=== PATIENT | male | born 1960 | race Caucasian/White ===

== ENCOUNTER 2020-09-10 08:08 | Day surgery (SDC) | payer SELFPAY ==
--- OUTSIDE RECORDS SUMMARY | 2020-09-10 08:25 | XMS REPORT | Clinical Summary ---
:1960 Author Organization [facility] Address [address] [place] [id number] Care Team Providers Name Role Phone Asked, No Pcp Primary Care Provider Unavailable Allergies Active Allergy Reactions Severity Noted Date Comments Bupropion Hcl 06/25/2017 Medications Medication Sig Dispensed Refills Start Date End Date Status vitamin E 1000 UNIT Take 1,000 Units 0 Active capsule by mouth 2 (two) times a day. PREGABALIN (LYRICA Take by mouth 0 Active ORAL) daily. INGREZZA 80 mg Take 1 capsule by 30 capsule 1 12/05/2017 Active capsule mouth once daily as directed by physician. Hospital, Clinic, or Other Ordered Dose Route Frequency Start Date End Date Status Facility Administered Medication abobotulinumtoxinA (DYSPORT) 500 Units IM once 11/27/2017 Active injection 500 UnitsIndications: Isolated oromandibular dystonia Active Problems Not on file Medical History Medical History Date Comments Skin cancer Family History Medical History Relation Name Comments Lung cancer Father Heart disease Mother Hypertension Mother Relation Name Status Comments Father Mother Social History Tobacco Use Types Packs/Day Years Used Date Current Every Day Smoker Smokeless Tobacco: Current User Chew Alcohol Use Drinks/Week oz/Week Comments Yes occassionally Sex Assigned at Date Recorded Not on file Last Filed Vital Signs Not on file Plan of Treatment Health Maintenance Due Date Last Done Comments COLONOSCOPY SCREENING 2011 SHINGLES VACCINES (#1) 2011 INFLUENZA VACCINE 06/19/2020 Results Not on fileafter 09/10/2019 Advance Directives For more information, please contact: [phone] Type Date Recorded Patient Sap Director Explanati on Advance Directives, Living Will and Medical Power of 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
--- OUTSIDE RECORDS SUMMARY | 2020-09-10 08:28 | XMS REPORT | Continuity of Care Document ---
:1960 Author Organization [facility] Care Team Providers Name Role Phone [facility] Unavailable Un available Problems Problem Status Onset Classification Date Comments Sour e Date Reported Pathological 12/03/19 06/17/2019 Christos as fracture, other 19 [facility] [place] site, initial Center encounter for fracture Encounter for 10/31/20 [place]13[place]2019 [place] removal of Medical internal fixation Ce nter device OTHER CHRONIC Active 09/30/20 Christos as OSTEOMYELITIS, 18 Medic al OTHER SITE Center FOLLOW VISIT Active 09/13/20 [facility] Other acute 07/13/20 01/22/2019 [facility] osteomyelitis, 18 Medic al other site Center FOLLOW UP Active 01/22/[address] OSTEOMYEKITIS Active 01/10/20 Christos as [address] [place] [address] Center SDF Active 01/10/[address] TOOTH ABSCESS Active 12/25/[address] LEFT FACIAL MASS Active 09/26/20 [facility] SWELLING [address] [place] [address] F/U Active 08/31/[address] DENTAL ABSCESS Active 08/22/[address] LT SUBLINGUAL Active 08/22/20 Christos as ABSCESS [address] [place] [address] 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, [facility] s neoplasm of skin all lesions M edical (disorder) [facility] Res[facility] Problem 06/17/2019 when pt was [facility] spotted fever 10 Medica l (disorder) Center,[facility] 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[facility] dyskinesia Medical (disorder) Center,[facility] Other specified 06/17/2019 [facility] postprocedural Medic al states Center Inflammatory 12/19/2018 [facility] as conditions of Medica l jaws Center Personal history 12/19/2018 [facility] of nicotine Medical dependence Center Fracture of ramus 01/22/2019 [facility] of left mandible, Mi dical subsequent Center encounter for fracture with nonunion Nicotine 06/17/2019 [facility] dependence, Medical cigarettes, Center uncomplicated Osteomyelitis, 06/17/2019 [facility] [place] unspecified Medical Center Pathological 04/26/2018 Christos as fracture in other Mi dical disease, other Cente r site, initial encounter for fracture Moderate 04/26/2018 [facility] protein-calorie Medi bang malnutrition Center Cellulitis and 04/26/2018 [facility] [place] abscess of mouth [facility] Center Body mass index 04/26/2018 [facility] (BMI) 19 or less, Mi dical adult Center Retained dental 04/26/2018 [facility] root Medical [place] Cocaine abuse, 04/26/2018 [facility] [place] uncomplicated Medica l Center 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/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 [facility] (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 Medic al therapy Center CELLULITIS AND Active [facility] [place] ABSCESS OF MOUTH [facility] OSTEOMYELITIS OF Active [facility] UNSPECIFIED ORBIT Mi dical Center ILLNESS, Active [facility] Medications Medication Details Route Status Patient Ordering Order Source Instructions Provider Date midazolam (ANES) Route: IV, Inactive [facility] Drug form: 2018 Medical SOLN, ONCE, Center Stop date: 10/23/18 14:00:00 DRY WALL FINISHER chlorhexidine 0.018 gm = 15 Active 10/23[facility] [place] gluconate 1.2 MG/ML mL, PO, BID, 2017 Medical Mouthwash [Peridex] swish and Ce nter spit; do not swallow, # 480 mL, 0 Refill(s) tramadol 50 mg = 1 tab, No Longer Christos as hydrochloride 50 MG PO, Q4H, # 24 Active 2017 Medical Oral Tablet tab, 0 Center Refill(s) ibuprofen 800 mg 800 mg = 1 No Longer [place] oral tablet tab, PO, Q8H, Active 2018 Medica l PRN Pain, Take Center with food, # 30 tab, 0 Refill(s) Acetaminophen 500 500 mg = 1 No Longer 10/23/ H [place] MG Oral Tablet tab, PO, Q4H, Active 2018 Med ical [Tylenol] PRN Pain, X 10 Center day, # 60 tab, 0 Refill(s) Naloxone Notes: Same as No Longer Christos as Narcan Active [address] [place] [address] Flumazenil Notes: (Same No Longer Christos as as: Romazicon) Active 2018 Medical Center Acetaminophen Notes: Max [place] acetaminophen Active 2018 Medical 4000 mg/day (4 Center gm/day). (Same as: Tylenol Extra Strength) Ketorolac 4 days No Longer Christos as MEDICATION Active 2018 Medical WASTE Center Product Size: 30 mg Product Wasted: _0__ mg Fentanyl Notes: (Same No Longer [facility] as: Sublimaze) Active 2018 Medical Preservative Center free. Hydromorphone Notes: Same as No Longer [facility] Dilaudid Active 2018 Medical Center Oxycodone Notes: (Same [place] Longer [place] as: Active 2018 [facility] [place] 'Roxicodone) Center Dexamethasone Notes: No Longer [place] Concentration: Active 2018 Medical 4mg/ml Center Ondansetron Notes: (Same [place] Long[place] as: Zofran) Active 2018 Medical MEDICATION Center WASTE Product Size: 4 mg Product Wasted: __0_ mg Calcium Chloride 1,000 mL, No Longer [facility] 0.0014 MEQ/ML / Rate: 125 Active 2018 Medica l Potassium Chloride ml/hr, Infuse Center 0.004 MEQ/ML / over: 8 hr, Sodium Chloride Route: IV, 0.103 MEQ/ML / Dosing Weight Sodium Lactate 68.182 kg, 0.028 MEQ/ML Total Volume: Injectable Solution 1,000, Start date: 10/23/18 13:49:00 DRY WALL FINISHER, Duration: 30 day, Stop date: 11/22/18 13:48:00 DRY WALL FINISHER, 1.87, m2 hydromorphone Route: IV, Inactive Christos as (ANES) Drug form: 2018 Medical INJ, ONCE, Center Stop date: 10/23/18 13:45:00 DRY WALL FINISHER dexamethasone Route: IV, Inactive Christ[place] as (ANES) Drug form: 2018 Medical INJ, ONCE, Center Stop date: 10/23/18 13:45:00 DRY WALL FINISHER ondansetron (ANES) Route: IV, Inactive [facility] [place] Drug form: 2018 Medical INJ, ONCE, Center Stop date: 10/23/18 13:45:00 DRY WALL FINISHER phenylephrine Route: IV, Inactive [place]os as (ANES) Drug form: 2018 Medical INJ, ONCE, Center Stop date: 10/23/18 13:20:00 DRY WALL FINISHER Isolyte S PH 7.4 Route: IV, Inactive [place] (ANES) 500 mL Total Volume: 2017 Medi bang 500, Start Center date: 10/23/18 13:16:00 DRY WALL FINISHER, Stop date: 10/23/18 14:16:00 DRY WALL FINISHER acetaminophen Route: IV, Inactive Christos as (ANES) 10 mg Drug form: 2018 Medical INJ, Start Center date: 10/23/18 13:10:00 DRY WALL FINISHER, Stop date: 10/23/18 14:10:00 DRY WALL FINISHER ePHEDrine (ANES) Route: IV, Inactive [place] Drug form: 2018 Medical INJ, ONCE, Center Stop date: 10/23/18 13:05:00 DRY WALL FINISHER ceFAZolin (ANES) Route: IV, Inactive [place] Drug form: 2018 Medical INJ, ONCE, Center Stop date: 10/23/18 12:55:00 DRY WALL FINISHER fentaNYL (ANES) Route: IV, Inactive [place] Drug form: 2018 Medical INJ, ONCE, Center Stop date: 10/23/18 12:46:00 DRY WALL FINISHER succinylcholine Route: IV, Inactive [place] (ANES) Drug form: 2018 Medical INJ, ONCE, Center Stop date: 10/23/18 12:46:00 DRY WALL FINISHER propofol (ANES) Route: IV, Inactive 10/23[facility] [place] Drug form: 2018 Medical INJ, ONCE, Center Stop date: 10/23/18 12:46:00 DRY WALL FINISHER lidocaine (ANES) Route: IV, Inactive 10/23[facility] [place] Drug form: 2018 Medical INJ, ONCE, Center Stop date: 10/23/18 12:45:00 DRY WALL FINISHER Lactated Ringers Route: IV, Inactive 10/23[facility] [place] Injection IV (ANES) Total Volume: 2017 Medical 1000 mL 1,000, Start Center date: 10/23/18 12:02:00 DRY WALL FINISHER, Stop date: 10/23/18 13:02:00 DRY WALL FINISHER ceFAZolin + sterile Notes: (Same No Longer 10/23 [place] water 20 mL As: Ancef, Active 2018 Medical Kefzol) Center MEDICATION WASTE Product Size: 1000 mg Product Wasted: ___ mg Metronidazole 500 500 mg = 1 Active [place] MG Oral Tablet tab, PO, TID, 2018 Med ical [Flagyl] 0 Refill(s) [place] Amoxicillin PO, BID, 0 Active [place] Refill(s) 2018 [facility] Amoxicillin 875 MG See No Longer [facility] / Clavulanate 125 Instructions, Active 2018 Medical MG Oral Tablet 1 tab PO Q[address]H [address] [Augmentin 875-mg] one month, # 60 tab, 0 Refill(s), Pharmacy: [facility] [id number] ibuprofen 600 mg 600 mg = 1 No Longer [facility] oral tablet tab, PO, Q6H, Active 2018 Medica l PRN Pain or Center Fever, Take with food, X 10 day, # 40 tab, 0 Refill(s), Pharmacy: [facility] [id number] chlorhexidine 0.018 gm = 15 Active [place] gluconate 1.2 MG/ML mL, PO, BID, 2018 Medical Mouthwash [Peridex] swish and Ce nter spit; do not swallow, # 480 mL, 0 Refill(s), Pharmacy: [facility] [id number] Benadryl Notes: (Same Inactive [facility] as: Benadryl) [address] [place] [address] Amoxicillin 875 MG Notes: With No Longer [place] / Clavulanate 125 food. (Same Active 2017 Me dical MG Oral Tablet as: Augmentin Mimi ter [Augmentin 875-mg] 875) Alprazolam 0.5 MG Notes: With Inactive 01/17/ H [place] Oral Tablet [Xanax] food or milk 2018 Medical (Same as: Center Xanax) Triazolam 0.25 mg, Inactive [facility] Route: PO, 2018 Medical Drug form: Center TAB, ONCE, Dosing Weight 68.182, kg, PRN Agitation, Start date: 01/17/18 9:26:00 DRY WALL FINISHER Benadryl Notes: (Same Inactive [facility] as: Benadryl) [address] [place] [address] 12 HR Clonidine Notes: (Same No Longer H [place] Hydrochloride 0.1 As: Catapres) Active 2018 Medical MG Extended Release Cent er Tablet Ativan Notes: (Same Inactive [facility] as: Ativan) 2018 Medical Center Flagyl Notes: (Same No Longer [facility] as: Flagyl) Active 2018 Medical Avoid alcohol. Center Rocephin Notes: (Same No Longer [facility] As: Rocephin). Active 2018 Medical Use with 100 Center mL NS and infuse over 30 min MEDICATION WASTE Product Size: 2000 mg Product Wasted: ___ mg Vancomycin 2001 mg: No Longer [place] infuse over Active 2018 Medical 2.5 hours For Center adult patients only: Round to nearest 250 mg per Medical Staff approval MEDICATION WASTE Product Size: 1000 mg Product Wasted: ___ mg Ativan Notes: (Same Inactive [facility] as: Ativan) 2018 [facility] [place] Center Ativan Notes: (Same No Longer [facility] as: Ativan) Active 2018 Medical Center Lidocaine 25 MG/ML Notes: Apply Inactive [place] / Prilocaine 25 to desired 2018 Medic al MG/ML Topical Cream area 2 hrs C enter [EMLA] prior to needle insertion. (Same as: Emla) Pain Ease topical 1 spray, Inactive [place] spray Route: TOP, 2018 Medical Dosing Weight Center 68.182, kg, ONCE, Start date: 01/13/18 5:59:00 DRY WALL FINISHER, Stop date: 01/13/18 5:59:00 DRY WALL FINISHER Amicar 4 gm, Route: Inactive [place] S&SPIT, Q8H, 2018 Medical Dosing Weight Center 68.182, kg, Start date: 01/12/18 16:00:00 DRY WALL FINISHER, Duration: 30 day, Stop date: 02/11/18 8:00:00 CDT Tranexamic acid Tranexamic No Longer [place] 50mg /ml oral acid 50mg /ml Active 2017 Medi bang solution oral solution, Center 10 mL, Drug form: MISC, Route: S&SPIT, Q8H, 01/12/18 12:00:00 DRY WALL FINISHER, Stop date: 02/11/18 4:00:00 CDT Unasyn Notes: Dosing No Longer [place] based on Active 2018 Medical Ampicillin Center component (Same as: Unasyn) Nicotine Notes: (Same No Longer [place] as: Habitrol) Active 2018 Medical "Remove old Center patch before application of new patch" WASTE: F/P - P Waste Black; E - P Waste Black chlorhexidine Notes: (Same No Longer [place] gluconate 1.2 MG/ML As: Peridex) Active 2017 Medical Mouthwash [Peridex] Cent er Beneprotein 7 gm Notes: (Same No Longer [place] pkt as: Active 2018 Medical Beneprotein) Center Ibuprofen Notes: (Same [place] Long[place] as: Motrin) Active 2018 Medical "Do Not Crush" Center Take with food. Lovenox Notes: (Same No Longer [place] as: Lovenox) Active 2018 Medical Center Unasyn Notes: Dosing Inactive [place] based on 2018 Medical Ampicillin Center component (Same as: Unasyn) Ondansetron Notes: (Same [place] Long[place] as: Zofran) Active 2018 Medical MEDICATION Center WASTE Product Size: 4 mg Product Wasted: ___ mg Benadryl Notes: (Same No Longer [facility] as: Benadryl) Active 2018 Medical Center clonazePAM 0.5 mg 0.5 mg = 1 Active [facility] oral tablet tab, PO, TID, 2017 Medica l # 90 tab, 0 Center Refill(s) tizanidine 6 mg 6 mg = 1 cap, Active [place] oral capsule PO, TID, 0 2018 Medical Refill(s) Center pregabalin 50 MG 100 mg = 2 Active [facility] [place] Oral Capsule cap, PO, 2018 Medical [Lyrica] Daily, 0 Center Refill(s) Tylenol Notes: Max No Longer [place] acetaminophen Active 2018 Medical 4000 mg/day (4 Center gm/day). (Same as: Tylenol Extra Strength) Morphine Notes: (Same No Longer [facility] as:MORPhine Active 2017 Medical Sulfate) Center albuterol (ANES) Route: Inactive Christos as INHALATION, 2018 Medical Drug form: Center AERO/A, ONCE, Stop date: 01/11/18 10:29:00 DRY WALL FINISHER ondansetron (ANES) Route: IV, Inactive [facility] Drug form: 2017 Medical INJ, ONCE, Center Stop date: 01/11/18 10:21:00 DRY WALL FINISHER acetaminophen Route: IV, Inactive Christos as (ANES) 10 mg Drug form: 2017 Medical INJ, Start Center date: 01/11/18 9:38:00 DRY WALL FINISHER, Stop date: 01/11/18 10:38:00 DRY WALL FINISHER ceFAZolin (ANES) Route: IV, Inactive [facility] Drug form: 2017 Medical INJ, ONCE, Center Stop date: 01/11/18 9:21:00 DRY WALL FINISHER Flumazenil Notes: (Same [place] as: Romazicon) 2018 Medical Center Morphine Notes: (Same Inactive [facility] as:MORPhine 2018 Medical Sulfate) Center Oxycodone Notes: (Same Inactive 01/11[facility] as: 2018 [facility] [place] Roxicodone) Center Ondansetron Notes: (Same Inactive Christos as as: Zofran) 2018 Medical MEDICATION Center WASTE Product Size: 4 mg Product Wasted: ___ mg Naloxone Notes: (Same Inactive [facility] as: Narcan) 2018 [facility] [place] dexmedetomidine Route: IV, Inactive [place] (ANES) Drug form: 2017 Medical INJ, ONCE, Center Stop date: 01/11/18 9:07:00 DRY WALL FINISHER dexamethasone Route: IV, Inactive 01/11[facility] Christos as (ANES) Drug form: 2017 Medical INJ, ONCE, Center Stop date: 01/11/18 8:51:00 DRY WALL FINISHER famotidine (ANES) Route: IV, Inactive 01/11[facility] [place] Drug form: 2018 Medical INJ, ONCE, Center Stop date: 01/11/18 8:45:00 DRY WALL FINISHER hydromorphone Route: IV, Inactive 01/11[facility] Christos as (ANES) Drug form: 2017 Medical INJ, ONCE, Center Stop date: 01/11/18 8:40:00 DRY WALL FINISHER rocuronium (ANES) Route: IV, Inactive 01/11[facility] [place] Drug form: 2017 Medical INJ, ONCE, Center Stop date: 01/11/18 8:40:00 DRY WALL FINISHER fentaNYL (ANES) Route: IV, Inactive [place] Drug form: 2018 Medical INJ, ONCE, Center Stop date: 01/11/18 8:40:00 DRY WALL FINISHER midazolam (ANES) Route: IV, Inactive [facility] Drug form: 2018 Medical SOLN, ONCE, Center Stop date: 01/11/18 8:40:00 DRY WALL FINISHER lidocaine (ANES) Route: IV, Inactive [facility] Drug form: 2018 Medical INJ, ONCE, Center Stop date: 01/11/18 8:40:00 DRY WALL FINISHER propofol (ANES) Route: IV, Inactive [place] Drug form: 2018 Medical INJ, ONCE, Center Stop date: 01/11/18 8:40:00 DRY WALL FINISHER Lactated Ringers Route: IV, Inactive [facility] Injection IV (ANES) Total Volume: 2017 Medical 1000 mL 1,000, Start Center date: 01/11/18 7:32:00 DRY WALL FINISHER, Stop date: 01/11/18 8:32:00 DRY WALL FINISHER Diphenhydramine Notes: (Same No Longer [facility] as: Benadryl) Active 2018 Medical [place] Tylenol Notes: Infuse No Longer [facility] over [address] [place] [address] Do Center not exceed 4gm/day of acetaminophen MEDICATION WASTE Product Size: 1000 mg Product Wasted: ___ mg Lyrica Notes: Same as [place] Longer [place] Lyrica Active 2018 [facility] Amoxicillin 875 MG 875 mg = 1 Active [facility] / Clavulanate 125 tab, PO, Q12H, 2017 Medical MG Oral Tablet X 7 day, # [address] [Augmentin 875-mg] tab, 0 Refill(s), Pharmacy: [facility] [id number] Motrin 600 mg oral 600 mg = 1 Active [place] tablet tab, PO, Q6H, 2017 Medical PRN Pain, take Center with food, # 30 tab, 0 Refill(s), Pharmacy: [facility] [id number] tramadol 50 mg = 1 tab, Active [place] hydrochloride 50 MG PO, Q4H, PRN 2017 Medical Oral Tablet Pain, X 10 Center day, # 30 tab, 0 Refill(s) Acetaminophen 500 1,000 mg = 2 Active [place] MG Oral Tablet tab, PO, BID, 2017 Med ical [Tylenol] PRN Pain, X 10 Center day, # 50 tab, 0 Refill(s), Pharmacy: [facility] [id number] chlorhexidine 0.018 gm = 15 Active [place] gluconate 1.2 MG/ML mL, PO, BID, 2017 Medical Mouthwash [Peridex] swish and Ce nter spit; do not swallow, # 480 mL, 0 Refill(s), Pharmacy: [facility] [id number] neostigmine (ANES) Route: IV, Inactive [place] Drug form: 2016 Medical INJ, ONCE, Center Stop date: 10/03/17 9:18:00 DRY WALL FINISHER glycopyrrolate Route: IV, Inactive [place] (ANES) Drug form: 2016 Medical INJ, ONCE, Center Stop date: 10/03/17 9:18:00 DRY WALL FINISHER dexmedetomidine Route: IV, Inactive [place] (ANES) Drug form: 2016 Medical INJ, ONCE, Center Stop date: 10/03/17 9:06:00 DRY WALL FINISHER ondansetron (ANES) Route: IV, Inactive [facility] Drug form: 2016 Medical INJ, ONCE, Center Stop date: 10/03/17 9:06:00 DRY WALL FINISHER ceFAZolin (ANES) Route: IV, Inactive [facility] Drug form: 2016 Medical INJ, ONCE, Center Stop date: 10/03/17 9:04:00 DRY WALL FINISHER rocuronium (ANES) Route: IV, Inactive [facility] Drug form: 2016 Medical INJ, ONCE, Center Stop date: 10/03/17 8:29:00 DRY WALL FINISHER propofol (ANES) Route: IV, Inactive [place] Drug form: 2016 Medical INJ, ONCE, Center Stop date: 10/03/17 8:29:00 DRY WALL FINISHER dexamethasone Route: IV, Inactive Christos as (ANES) Drug form: 2016 Medical INJ, ONCE, Center Stop date: 10/03/17 8:29:00 DRY WALL FINISHER fentaNYL (ANES) Route: IV, Inactive [place] Drug form: 2016 Medical INJ, ONCE, Center Stop date: 10/03/17 8:29:00 DRY WALL FINISHER midazolam (ANES) Route: IV, Inactive [facility] Drug form: 2016 Medical SOLN, ONCE, Center Stop date: 10/03/17 8:29:00 DRY WALL FINISHER lidocaine (ANES) Route: IV, Inactive [facility] Drug form: 2017 Medical INJ, ONCE, Center Stop date: 10/03/17 8:29:00 DRY WALL FINISHER acetaminophen Route: IV, Inactive Christos as (ANES) 10 mg Drug form: 2016 Medical INJ, Start Center date: 10/03/17 8:25:00 DRY WALL FINISHER, Stop date: 10/03/17 9:25:00 DRY WALL FINISHER Lactated Ringers Route: IV, Inactive [facility] Injection IV (ANES) Total Volume: 2016 Medical 1000 mL 1,000, Start Center date: 10/03/17 7:34:00 DRY WALL FINISHER, Stop date: 10/03/17 8:34:00 DRY WALL FINISHER gabapentin 300 MG 300 mg = 1 Active [place] Oral Capsule cap, PO, Q8H, 2017 Medic al # 30 cap, 0 Center Refill(s), called to pharmacy ibuprofen 800 mg 800 mg = 1 [place] oral tablet tab, PO, Q8H, 2017 Medica l PRN Fever or Center Pain, Take with food, X 10 day, # 30 tab, 0 Refill(s), called to pharmacy chlorhexidine 0.018 gm = 15 [place] gluconate 1.2 MG/ML mL, Swab 2017 Med ical Mouthwash Mouth, Q12H, # Center 420 mL, 0 Refill(s), called to pharmacy Amoxicillin 875 MG 1 tab, PO, Active [place] / Clavulanate 125 Q12H, X 10 2017 Med ical MG Oral Tablet day, # 20 tab, Ce nter [Augmentin 875-mg] 0 Refill(s), called to pharmacy tramadol 100 mg = 2 Active [place] hydrochloride 50 MG tab, PO, Q6H, 2017 Medical Oral Tablet PRN Pain Score Cente r 7-10, X 7 day, # 50 tab, 0 Refill(s), given to patient Folic Acid 1 MG 1 mg = 1 tab, Active [place] Oral Tablet NG, Daily, # 2017 Medical 14 tab, 0 Center Refill(s), called to pharmacy acetaminophen 500 1,000 mg = 2 Active H [place] mg oral tablet tab, PO, Q6H, 2017 Med ical X 10 day, # 80 Center tab, 0 Refill(s), called to pharmacy thiamine 100 mg 200 mg = 2 [place] oral tablet tab, NG, 2017 Medical Daily, X 14 Center day, # 28 tab, 0 Refill(s), called to pharmacy Clonidine 0.1 mg = 1 Active [place] Hydrochloride 0.1 tab, PO, QID, 2017 Medical MG Oral Tablet # 56 tab, 0 Cente r Refill(s), called to pharmacy Clonidine Notes: (Same Inactive [place] Hydrochloride 0.1 As: Catapres) 2017 Medical MG Oral Tablet Center Amoxicillin 875 MG Notes: With No Longer [facility] / Clavulanate 125 food. (Same Active 2016 Me dical MG Oral Tablet as: Augmentin Mimi ter [Augmentin 875-mg] 875) olanzapine Notes: (Same No Longer Christos as as: ZyPREXA) Active 2017 [facility] Seroquel Notes: (Same Inactive [place] as: SEROquel) 2017 [facility] Naprosyn Notes: (Same No Longer [facility] as: Naprosyn) Active 2017 Medical Take with Center food. gabapentin 300 MG Notes: (Same No Longer [facility] Oral Capsule as: Neurontin) Active 2016 [facility] Tetrahydrocannabino Notes: (Same No Longer 08/25 [facility] l as: Marinol) Active 2017 [facility] [place] Non-Formulary Center Drug. Dexmedetomidine 24 hours No Longer [place] Active 2017 [facility] Thiamine 200 mg, Route: No Longer Christos as IV, Daily, Active 2017 Medical Dosing Weight Center 67.273, kg, Start date: 08/24/17 9:00:00 CDT, Duration: 30 day, Stop date: 09/22/17 9:00:00 CDT Famotidine 20 MG Notes: (Same No Longer [place] Oral Tablet as: Pepcid) Active 2017 [facility] Vitamin B 12 Notes: (Same No Longer [place] As: Vitamin Active 2016 [facility] B12) [place] sterile water 1.2 mL, Route: No Longer H [place] MISC, Drug Active 2016 Medical Form: INJ, Center Q2H, PRN See Nurse's Notes, Start date: 08/24/17 8:24:00 CDT, Duration: 30 day, Stop date: 09/23/17 8:23:00 DRY WALL FINISHER pregabalin Notes: (Same No Longer [place] as as: Lyrica) Active 2017 [facility] Geodon Notes: No Longer [facility] Reconstitute Active 2017 [facility] [place] with 1.2 ml of [place] sterile water. Final concentration = 20 mg/1ml. Maximum 40 mg/24 hours (Same As: Sonja). MEDICATION WASTE Product Size: 20 mg Product Wasted: ___ mg Acetaminophen Notes: Max [place] Longer [place] acetaminophen Active 2017 [facility] 4000 mg/day (4 Center gm/day). (Same as: Tylenol Extra Strength) Baclofen Notes: (Same No Longer [place] As: Lioresal) Active 2017 [facility] Docusate 100 mg, Route: Inactive [place] PO, Drug form: 2016 [facility] CAP, Q12H, Center Dosing Weight 67.273, kg, Start date: 08/23/17 21:00:00 CDT, Duration: 30 day, Stop date: 09/22/17 9:00:00 CDT Mirtazapine Notes: (Same [place] Longer [place] as:Remeron) Active 2017 [facility] olanzapine 10 mg, Route: Inactive Christos as SL, Drug form: 2016 [facility] TABDIS, Center Bedtime, Dosing Weight 67.273, kg, Start date: 08/23/17 21:00:00 CDT, Duration: 30 day, Stop date: 09/21/17 21:00:00 CDT docusate Notes: (Same No Longer [place] as: Colace) Active 2017 [facility] Reglan Notes: (Same No Longer [facility] as: Reglan) Active 2017 [facility] Geodon Notes: No Longer [facility] Reconstitute Active [address] [place] [address] with 1.2 ml of Center sterile water. Final concentration = 20 mg/1ml. Maximum 40 mg/24 hours (Same As: Sonja). MEDICATION WASTE Product Size: 20 mg Product Wasted: ___ mg pregabalin Notes: Same as No Longer [place] Lyrica Active 2017 [facility] Enoxaparin Notes: (Same No Longer Christos as as: Lovenox) Active [address] [place] [address] PHOS-NaK Notes: (Same No Longer [facility] as: Phos-NaK) Active [address] [place] [address] Each 1.5 gm Center pkt has 250mg phosphorous. Mix w/2.5oz water and stir. mirtazapine 15 mg 0 Refill(s) No Longer [facility] oral tablet Active [address] [place] [address] pregabalin 50 MG 50 mg = 1 cap, No Longer [facility] Oral Capsule PO, TID, [address] [place] [address] [Lyrica] Refill(s) Center baclofen 20 mg oral 0 Refill(s) No Longer [facility] tablet Active [address] [place] [address] OLANZapine 10 mg 0 Refill(s) No Longer [place] oral tablet, Active [address] [place] [address] disintegrating Center midazolam 50mg/ NS Notes: (Same Inactive [facility] 50ml drip as: Versed) 2017 Medical (premixed) 50 mg [place] midazolam 50mg/ NS Notes: (Same Inactive [facility] 50ml drip as: Versed) [facility] Medical (premixed) 50 mg Center Versed 3 mg, Route: Inactive [facility] DARION JONES, 2017 Medical Dosing Weight Center 67.273, kg, Start date: 08/23/17 15:00:00 CDT, Duration: 30 day, Stop date: 09/22/17 14:59:00 CDT Midazolam 100 mg, 100 Inactive [facility] mL, Rate: 2017 Medical Titrate, Start Center Dose: 1 mg/hr, Titration: Rebolus 1 mg IV and/or Titrate infusion by 1 mg/hour every 30 minutes, Goal(s): RASS 0, Max Dose: 10 mg/hr, Route: IV, Dosing Weight 67.273 kg, Total Volume: 100, Start date: 08/23/17 13:5... Tramadol Notes: [place] to [place]er [place] exceed Active 2017 Medical 400mg/day. Center (Same As: [facility]) ocular lubricant Notes: (Same No Longer [place] as: Active 2017 Medical Lacri-Lube, Center Duratears Naturale, Artificial Tears, and Tears Again ) senna 8.6 mg oral Notes: (Same No Longer [place] tablet as: Senokot) Active 2017 [facility] Center Miralax Notes: No Longer Dissolve in 8 Active 2017 Medical oz of water or Center juice. (Same as: Miralax) Thiamine Notes: (Same No Longer [place] As: Vitamin Active 2016 [facility] B1) [place] Folic Acid Notes: (Same No Longer [place] as as: Folvite) Active 2017 [facility] Center Valium Notes: (Same Inactive [place] as: Valium) 2017 Medical [place] Clonidine Notes: (Same No Longer [place] As: Catapres) Active 2017 [facility] Tetrahydrocannabino 5 mg, Route: Inactive [place] l NG, Drug form: 2017 Medical CAP, [id number], Center Dosing Weight 67.273, kg, Start date: 08/23/17 9:19:00 CDT, Duration: 30 day, Stop date: 09/21/17 21:19:00 CDT Methadone Notes: (Same No Longer [place] as: Dolophine) Active 2017 [facility] Midazolam 2 mg, Route: Inactive [place] IVP, ONCE, 2017 Medical Dosing Weight Center 67.273, kg, Start date: 08/23/17 9:16:00 CDT, Stop date: 08/23/17 9:16:00 CDT Famotidine Notes: (Same No Longer [place] as as: Pepcid) Active 2017 [facility] chlorhexidine Notes: (Same No Longer [place] gluconate 1.2 MG/ML As: Peridex) Active 2017 Medical Mouthwash Center chlorhexidine Notes: (Same No Longer [place] gluconate 1.2 MG/ML As: Peridex) Active 2017 Medical Mouthwash Center Dextrose 50% 12.5 gm, 25 [place]er [place] Syringe mL, Route: Active 2016 Medical IVP, Drug Center Form: INJ, Dosing Weight 67.273, kg, PRN, PRN Abnormal Lab Result, Start date: 08/23/17 2:39:00 CDT, Duration: 30 day, Stop date: 09/22/17 2:38:00 CDT, For FSBG 40 mg/dL - 60 mg/dL Insulin regular 60 units) No Longer [place] WASTE: F/P - Active 2017 Medical Black; E - Center Municipal Trash Bin Stable for 28 days at room temperature Expires in days from Date Oxycodone Notes: (Same No Longer [place] Hydrochloride 5 MG as: Active 2016 Medic al Oral Tablet 'Roxicodone) Center celecoxib Notes: NSAID. No Longer [place] as Please check Active 2017 Medical indication. Center Not for seizure. (Same As: CeleBREX) Acetaminophen Notes: Max No Longer [place] acetaminophen Active 2017 [facility] 4000 mg/day (4 Center gm/day). (Same as: Tylenol Extra Strength) Unasyn Notes: Dosing No Longer [place] based on Active 2016 [facility] Ampicillin Center component (Same as: Unasyn) Flagyl Notes: (Same Inactive [place] as: Flagyl) 2017 [facility] Avoid alcohol. Center Enoxaparin Notes: (Same [place] as: Lovenox) 2017 Medical Center Midazolam Notes: (Same [place] Long[place] as: Versed) Active 2017 Medical MEDICATION Center WASTE Product Size: 2 mg Product Wasted: ___ mg Fentanyl 1,000 No Longer [place] microgram, 20 Active 2017 Medical mL, Rate: Center Titrate, Start Dose: 50 microgram/hr, Titration: 25 microgram/hour every 15 minutes, Goal(s): Rass 0, Max Dose: 300 microgram/hr, Route: IV, Dosing Weight 68.182 kg, Total Volume: 20, Start date: 08/22/17 23:02:00 CDT, Du... propofol INJ 1,000 Notes: If No Longer 08/23/ H [place] mg Diprivan - Active 2016 Medical change bottle Center & tubing every 12 hr Per state nursing law propofol can only be given by a nurse if patient is intubated or being intubated (unless the nurse is a OCCASIONAL CAREGIVER). Same as: Diprivan Penicillin V 500 mg = 1 No Longer [place] as Potassium 500 MG tab, PO, TID Active 2016 Mi dical Oral Tablet Center mirtazapine 15 mg 15 mg = 1 tab, No Longer 08/23 [place] oral tablet PO, Bedtime Active 2016 [facility] baclofen 20 mg oral 20 mg = 1 tab, No Longer [place] tablet PO, Bedtime Active 2016 [facility] OLANZapine 10 mg 10 mg = 1 tab, No Longer [place] oral tablet, SL, Bedtime Active 2016 Medical disintegrating Center ibuprofen 800 mg 800 mg = 1 No Longer [place] oral tablet tab, PO, Q8H, Active 2016 Medica l PRN Fever or Center Pain, Take with food sugammadex Notes: (Same Inactive [place] as: Brid[place]) [address] [place] [address] rocuronium (ANES) Route: IV, Inactive [place] Drug form: 2016 Medical INJ, ONCE, Center Stop date: 08/22/17 21:46:00 CDT lidocaine (ANES) Route: IV, Inactive [place] Drug form: 2016 Medical INJ, ONCE, Center Stop date: 08/22/17 21:46:00 CDT propofol (ANES) Route: IV, Inactive [place] Drug form: 2016 Medical INJ, ONCE, Center Stop date: 08/22/17 21:46:00 CDT phenylephrine Route: IV, Inactive [place] as (ANES) Drug form: 2016 Medical INJ, ONCE, Center Stop date: 08/22/17 21:41:00 CDT acetaminophen Route: IV, Inactive [place] as (ANES) Drug form: 2016 Medical INJ, ONCE, Center Stop date: 08/22/17 21:36:00 CDT dexamethasone Route: IV, Inactive [place] as (ANES) Drug form: 2017 Medical INJ, ONCE, Center Stop date: 08/22/17 21:36:00 CDT fentaNYL (ANES) Route: IV, Inactive [place] Drug form: 2017 Medical INJ, ONCE, Center Stop date: 08/22/17 21:31:00 CDT metroNIDAZOLE Route: IV, Inactive [place] as (ANES) (ANES) Drug form: 2017 Medical INJ, Start Center date: 08/22/17 21:18:00 CDT, Stop date: 08/22/17 22:18:00 CDT LR 1000 mL INJ Route: IV, Inactive [place] (ANES) Total Volume: 2017 Medical 1,000, Start Center date: 08/22/17 20:42:00 CDT, Stop date: 08/22/17 21:42:00 CDT Ativan Notes: (Same Inactive [place] as: Ativan) [address] [place] [address] Center Unasyn Notes: Dosing Inactive [facility] based on [address] [place] [address] Ampicillin Center component (Same as: Unasyn) Unasyn Notes: Dosing Inactive [facility] based on [address] [place] [address] Ampicillin Center component (Same as: Unasyn) NS (Bolus) IV 1,000 mL, [place] 1,000 ml/hr, [facility] Medical Infuse Over: 1 Center hr, Route: IV, ONCE, Priority: STAT, Dosing Weight 68.182 kg, Start date: 08/22/17 14:40:00 CDT, Duration: 1 doses or times, Stop date: 08/22/17 14:40:00 CDT Morphine 4 mg, Route: Inactive IVP, ONCE, [address] [place] [address] Dosing Weight [facility] 68.182, kg, Priority: STAT, Start date: 08/22/17 12:41:00 CDT, Stop date: 08/22/17 12:41:00 CDT Clindamycin Notes: Inactive (clindamycin [address] [place] [address] 150 mg/[address] [facility] (600 mg/4 ml VL) INJ) (Same As: Cleocin) Flagyl 500 mg, Route: Inactive IVPB, ONCE, [address] [place] [address] Dosing Weight [facility] 68.182, kg, Priority: STAT, Start date: 08/22/17 10:26:00 CDT, Stop date: 08/22/17 10:26:00 CDT, ABX Indication: Skin/Soft Tissue Infection Cipro Notes: Do not Inactive refrigerate 2016 [facility] Ativan Notes: (Same Inactive as: Ativan) 2016 [facility] Zofran Notes: (Same Inactive as: Zofran) 2016 [facility] MEDICATION [place] WASTE Product Size: 4 mg Product Wasted: ___ mg Morphine 4 mg, Route: Inactive IVP, ONCE, 2016 [facility] Dosing Weight [facility] 68.182, kg, Priority: STAT, Start date: 08/22/17 9:01:00 CDT, Stop date: 08/22/17 9:01:00 CDT NS (Bolus) IV 1,000 mL, Inactive 1,000 ml/hr, 2016 [facility] Infuse Over: 1 [place] hr, Route: IV, 1,000, Drug form: INJ, ONCE, Priority: STAT, Dosing Weight 68.182 kg, Start date: 08/22/17 9:01:00 CDT, Duration: 1 doses or times, Stop date: 08/22/17 9:01:00 CDT Allergies, Adverse Reactions, Alerts Substance Category Reaction Severity Reaction Status Date Comments S ource type Reported Wellbutrin Assertion Drug Active [facility] Immunizations No Data Provided for This Section Results Order Name Results Value Reference Date Interpretation Comments Brandy rce [place] BLOOD BANK Antibody Negative 10/23 [facility] RESULTS Scrn (10/23/18 8:27 AM) /2017 [facility] BLOOD BANK ABO/Rh O POS 10/23 [facility] RESULTS /2017 [facility] CHEM PANEL Calcium Lvl 8.9 8.5 - 10.5 01/15 [place] /2017 [facility] CHEM PANEL CO2 27 24 - 32 01/15 /2017 [facility] CHEM PANEL Sodium Lvl 145 135 - 145 01/15 /2017 [facility] CHEM PANEL Creatinine 0.70 0.50 - 01/15 [place] Lvl 1.40 /2017 [facility] CHEM PANEL Chloride Lvl 111 95 - 109 01/15 [place] [facility] CHEM PANEL Potassium 4.1 3.5 - 5.1 01/15 [facility] Lvl /2017 [facility] CHEM PANEL BUN 17 7 - 22 01/15 [facility] CHEM PANEL Glucose Lvl 89 70 - 99 01/15 [facility] CHEM PANEL eGFR 105 01/15 [facility] Comment: The Medical eGFR is Center calculated using the CKD-EPI formula. In most young, healthy individuals the eGFR will be >90 mL/min/1.73m2 . The eGFR declines with age. An eGFR of 60-89 may be normal in some populations, particularly the elderly, for whom the CKD-EPI formula has not been extensively validated. Use of the eGFR is not recommended in the following populations:< br/>
Domenica viduals with unstable creatinine concentration s, including patients and those with serious co-morbid conditions.<b r/>
Patie nts with extremes in muscle mass or diet.

The data above are obtained from the National Kidney Disease Education Program (NKDEP) which additionally recommends that when the eGFR is used in patients with extremes of body mass index for purposes of drug dosing, the eGFR should be multiplied by the estimated BMI. CHEM PANEL AGAP 11.1 10.0 - 01/15 [place] 20.0 [facility] HEMATOLOGY Lymphocytes 26.8 20.0 - 01/15 [place] 40.0 [facility] HEMATOLOGY Eosinophils 3.9 0.0 - 4.0 01/15 [facility] HEMATOLOGY Monocytes 7.0 2.0 - 12.0 01/15 [facility] HEMATOLOGY Segs-Bands # 4.2 1.5 - 8.1 01/15 [facility] HEMATOLOGY Basophils 0.6 0.0 - 1.0 01/15 [facility] HEMATOLOGY Lymphocytes 1.8 1.0 - 5.5 01/15 [place] # [facility] HEMATOLOGY Segs 61.7 45.0 - 01/15 [place] 75.0 [facility] HEMATOLOGY Eosinophils 0.3 0.0 - 0.5 01/15 [place] # [facility] HEMATOLOGY Monocytes # 0.5 0.0 - 0.8 01/15 a s [facility] HEMATOLOGY MCHC 34.4 32.0 - 01/15 [facility] [place] 36.0 [facility] HEMATOLOGY RDW 12.2 11.5 - 01/15 [facility] 14.5 [facility] HEMATOLOGY MCH 31.8 27.0 - 01/15 31.0 [facility] HEMATOLOGY Platelet 234 133 - 450 01/15 [facility] HEMATOLOGY MPV 8.4 7.4 - 10.4 01/15 [facility] HEMATOLOGY MCV 92.7 80.0 - 01/15 [facility] 94.0 [facility] HEMATOLOGY WBC 6.8 3.7 - 10.4 01/15 [facility] HEMATOLOGY RBC 4.02 4.70 - 01/15 [facility] 6.10 [facility] HEMATOLOGY Hgb 12.8 14.0 - 01/15 [facility] 18.0 [facility] HEMATOLOGY Hct 37.3 42.0 - 01/15 [facility] 54.0 [facility] ELECTROLYTES AGAP 13.4 10.0 - 01/14 [facility] 20.0 [facility] ELECTROLYTES eGFR 107 01/14 Result Comment: [facility] eGFR is Center calculated using the CKD-EPI formula. In most young, healthy individuals the eGFR will be >90 mL/min/1.73m2 . The eGFR declines with age. An eGFR of 60-89 may be normal in some populations, particularly the elderly, for whom the CKD-EPI formula has not been extensively validated. Use of the eGFR is not recommended in the following populations:< br/>
Domenica viduals with unstable creatinine concentration s, including patients and those with serious co-morbid conditions.<b r/>
Patie nts with extremes in muscle mass or diet.

The data above are obtained from the National Kidney Disease Education Program (NKDEP) which additionally recommends that when the eGFR is used in patients with extremes of body mass index for purposes of drug dosing, the eGFR should be multiplied by the estimated BMI. ELECTROLYTES Glucose Lvl 77 70 - 99 01/14 [facility] ELECTROLYTES Creatinine 0.67 0.50 - 01/14 [facility] Lvl 1.40 [facility] ELECTROLYTES BUN 16 7 - 22 01/14 [facility] ELECTROLYTES Sodium Lvl 142 135 - 145 01/14 [facility] ELECTROLYTES Chloride Lvl 109 95 - 109 01/14 [place] [facility] ELECTROLYTES Potassium 4.4 3.5 - 5.1 01/14 [place] L[place] /2017 Medical Center ELECTROLYTES Calcium Lvl 8.6 8.5 - 10.5 01/14 [place] /2017 [facility] ELECTROLYTES CO2 24 24 - 32 01/14 /2018 [facility] HEMATOLOGY Segs 56.4 45.0 - 01/14 [place] 75.0 [facility] Center HEMATOLOGY Lymphocytes 30.9 20.0 - 01/14 [place] 40.0 [facility] HEMATOLOGY Monocytes 8.2 2.0 - 12.0 01/14 /2017 [facility] HEMATOLOGY Basophils 1.0 0.0 - 1.0 01/14 [place] [facility] HEMATOLOGY Eosinophils 3.5 0.0 - 4.0 01/14 [place] /2018 [facility] HEMATOLOGY Segs-Bands # 4.4 1.5 - 8.1 01/14 [facility] as [facility] HEMATOLOGY Lymphocytes 2.4 1.0 - 5.5 01/14 [place] # /2018 Medical Center HEMATOLOGY Eosinophils 0.3 0.0 - 0.5 01/14 [place] # /2018 [facility] HEMATOLOGY Basophils # 0.1 0.0 - 0.2 01/14 [place] /2018 [facility] HEMATOLOGY Monocytes # 0.6 0.0 - 0.8 01/14 [place] /2018 [facility] HEMATOLOGY Hct 38.9 42.0 - 01/14 [place] 54.0 Medical Center HEMATOLOGY MCV 94.4 80.0 - 01/14 [place] 94.0 [facility] HEMATOLOGY MCH 31.8 27.0 - 01/14 [place] 31.0 [facility] HEMATOLOGY MCHC 33.7 32.0 - 01/14 [place] 36.0 [facility] HEMATOLOGY RDW 13.0 11.5 - 01/14 [place] 14.5 [facility] HEMATOLOGY Platelet 234 133 - 450 01/14 [facility] HEMATOLOGY MPV 8.5 7.4 - 10.4 01/14 [place] [facility] HEMATOLOGY WBC 7.8 3.7 - 10.4 01/14 [facility] HEMATOLOGY RBC 4.12 4.70 - 01/14 [place] 6.10 [facility] HEMATOLOGY Hgb 13.1 14.0 - 01/14 [facility] 18.0 [facility] ELECTROLYTES AGAP 9.1 10.0 - 01/13 [facility] 20.0 [facility] ELECTROLYTES eGFR 104 01/13 [facility] Comment: The Medical eGFR is Center calculated using the CKD-EPI formula. In most young, healthy individuals the eGFR will be >90 mL/min/1.73m2 . The eGFR declines with age. An eGFR of 60-89 may be normal in some populations, particularly the elderly, for whom the CKD-EPI formula has not been extensively validated. Use of the eGFR is not recommended in the following populations:< br/>
Domenica viduals with unstable creatinine concentration s, including patients and those with serious co-morbid conditions.<b r/>
Patie nts with extremes in muscle mass or diet.

The data above are obtained from the National Kidney Disease Education Program (NKDEP) which additionally recommends that when the eGFR is used in patients with extremes of body mass index for purposes of drug dosing, the eGFR should be multiplied by the estimated BMI. ELECTROLYTES Glucose Lvl 81 70 - 99 01/13 [facility] s [facility] ELECTROLYTES Sodium Lvl 141 135 - 145 01/13 [facility] ELECTROLYTES Creatinine 0.73 0.50 - 01/13 [facility] Lvl 1.40 [facility] ELECTROLYTES BUN 18 7 - 22 01/[address] ELECTROLYTES Calcium Lvl 8.7 8.5 - 10.5 01/13 [place] [facility] ELECTROLYTES CO2 27 24 - 32 01/13 [facility]2017 [facility] ELECTROLYTES Chloride Lvl 109 95 - 109 01/13 [place] [facility] ELECTROLYTES Potassium 4.1 3.5 - 5.1 01/13 [facility] s Lvl [facility] HEMATOLOGY Segs-Bands # 5.8 1.5 - 8.1 01/13 [facility] HEMATOLOGY Monocytes 6.7 2.0 - 12.0 01/[address] HEMATOLOGY Basophils 0.4 0.0 - 1.0 01/[address] HEMATOLOGY Lymphocytes 2.0 1.0 - 5.5 01/13 [facility] # /2017 [facility] HEMATOLOGY Eosinophils 1.6 0.0 - 4.0 01/13 s /2017 [facility] HEMATOLOGY Monocytes # 0.6 0.0 - 0.8 01/13 [facility] HEMATOLOGY Eosinophils 0.1 0.0 - 0.5 01/13 [place] # /2017 [facility] HEMATOLOGY Segs 67.9 45.0 - 01/13 [place] 75.0 [facility] HEMATOLOGY Lymphocytes 23.4 20.0 - 01/13 [place] 40.0 [facility] HEMATOLOGY RBC 4.04 4.70 - 01/13 [place] 6.10 [facility] HEMATOLOGY Hgb 12.9 14.0 - 01/13 [place] 18.0 [facility] HEMATOLOGY Hct 37.9 42.0 - 01/13 [place] 54.0 [facility] HEMATOLOGY MCV 94.0 80.0 - 01/13 [place] 94.0 [facility] HEMATOLOGY MPV 8.5 7.4 - 10.4 01/13 [facility] HEMATOLOGY RDW 12.7 11.5 - 01/13 [place] 14.5 [facility] HEMATOLOGY Platelet 218 133 - 450 01/13 [facility] HEMATOLOGY MCHC 34.0 32.0 - 01/13 [place] 36.0 [facility] HEMATOLOGY MCH 32.0 27.0 - 01/13 [place] 31.0 [facility] HEMATOLOGY WBC 8.5 3.7 - 10.4 01/13 [facility] BLOOD BANK ABO/Rh O POS 01/11 [facility] RESULTS [facility] BLOOD BANK Antibody Negative 01/11 [facility] RESULTS Scrn (01/11/18 1:36 AM) [facility] HEMATOLOGY Basophils # 0.1 0.0 - 0.2 01/11 [facility] CHEM PANEL Phosphorus 2.8 2.5 - 4.5 08/26 [facility] CHEM PANEL Magnesium 2.4 1.8 - 2.4 08/26 [facility] Lvl [facility] CHEM PANEL eGFR 109 08/26 Result Comment: The Medical eGFR is Center calculated using the CKD-EPI formula. In most young, healthy individuals the eGFR will be >90 mL/min/1.73m2 . The eGFR declines with age. An eGFR of 60-89 may be normal in some populations, particularly the elderly, for whom the CKD-EPI formula has not been extensively validated. Use of the eGFR is not recommended in the following populations:< br/>
Domenica viduals with unstable creatinine concentration s, including patients and those with serious co-morbid conditions.<b r/>
Patie nts with extremes in muscle mass or diet.

The data above are obtained from the National Kidney Disease Education Program (NKDEP) which additionally recommends that when the eGFR is used in patients with extremes of body mass index for purposes of drug dosing, the eGFR should be multiplied by the estimated BMI. CHEM PANEL Chloride Lvl 106 95 - 109 08/26 [facility] CHEM PANEL CO2 30 24 - 32 08/26 [facility] CHEM PANEL Calcium Lvl 8.1 8.5 - 10.5 08/26 [facility] CHEM PANEL AGAP 9.1 10.0 - 08/26 [place] 20.0 [facility] CHEM PANEL Potassium 4.1 3.5 - 5.1 08/26 [facility] l [facility] CHEM PANEL Creatinine 0.64 0.50 - 08/26 [place] Lvl 1.40 [facility] CHEM PANEL Sodium Lvl 141 135 - 145 08/26 [facility] CHEM PANEL Glucose Lvl 78 70 - 99 08/26 [facility] CHEM PANEL BUN 21 7 - 22 08/26 [facility] HEMATOLOGY MPV 8.4 7.4 - 10.4 08/26 [facility] HEMATOLOGY RDW 14.3 11.5 - 08/26 [place] 14.5 [facility] HEMATOLOGY Platelet 357 133 - 450 08/26 [facility] HEMATOLOGY MCHC 32.5 32.0 - 08/26 [place] 36.0 [facility] HEMATOLOGY MCV 97.2 80.0 - 08/26 [place] 94.0 [facility] HEMATOLOGY MCH 31.6 27.0 - 08/26 [place] 31.0 [facility] HEMATOLOGY Hct 33.0 42.0 - 08/26 [place] 54.0 [facility] HEMATOLOGY Hgb 10.7 14.0 - 08/26 [place] 18.0 [facility] HEMATOLOGY RBC 3.39 4.70 - 08/26 [place] 6.10 /2017 [facility] HEMATOLOGY WBC 13.7 3.7 - 10.4 08/26 [facility] HEMATOLOGY Eosinophils 0.2 0.0 - 0.5 08/26 [place] # [facility] HEMATOLOGY Monocytes # 1.3 0.0 - 0.8 08/26 s [facility] HEMATOLOGY Segs-Bands # 9.3 1.5 - 8.1 08/26 [facility] HEMATOLOGY Lymphocytes 2.8 1.0 - 5.5 08/26 [place] # [facility] HEMATOLOGY Monocytes 9.8 2.0 - 12.0 08/26 [facility] HEMATOLOGY Basophils 0.2 0.0 - 1.0 08/26 [facility] HEMATOLOGY Eosinophils 1.3 0.0 - 4.0 08/26 s [facility] HEMATOLOGY Lymphocytes 20.4 20.0 - 08/26 [place] 40.0 [facility] HEMATOLOGY Segs 68.3 45.0 - 08/26 [place] 75.0 [facility] ELECTROLYTES AGAP 10.0 10.0 - 08/25 [place] 20.0 [facility] ELECTROLYTES Calcium Lvl 8.0 8.5 - 10.5 08/25 [place] [facility] ELECTROLYTES CO2 30 24 - 32 08/25 [facility] ELECTROLYTES eGFR 104 08/25 [facility] Comment: The Medical eGFR is Center calculated using the CKD-EPI formula. In most young, healthy individuals the eGFR will be >90 mL/min/1.73m2 . The eGFR declines with age. An eGFR of 60-89 may be normal in some populations, particularly the elderly, for whom the CKD-EPI formula has not been extensively validated. Use of the eGFR is not recommended in the following populations:< br/>
Domenica viduals with unstable creatinine concentration s, including patients and those with serious co-morbid conditions.<b r/>
Patie nts with extremes in muscle mass or diet.

The data above are obtained from the National Kidney Disease Education Program (NKDEP) which additionally recommends that when the eGFR is used in patients with extremes of body mass index for purposes of drug dosing, the eGFR should be multiplied by the estimated BMI. ELECTROLYTES Creatinine 0.72 0.50 - 08/25 [place] [facility] ELECTROLYTES BUN 28 7 - 22 10 [facility] ELECTROLYTES Chloride Lvl 110 95 - 109 08/25 [facility] ELECTROLYTES Potassium 4.0 3.5 - 5.1 08/25 [place] [facility] E[facility] Sodium Lvl 146 135 - 145 08/25 [facility] ELECTROLYTES Glucose Lvl 105 70 - 99 08/25 [facility] [place] HEMATOLOGY WBC 13.8 3.7 - 10.4 08/25 [facility] [place] HEMATOLOGY Hgb 10.3 14.0 - 08/25 [place] 18.0 [facility] [place] HEMATOLOGY RBC 3.25 4.70 - 08/25 [place] 6.10 [facility] [place] HEMATOLOGY MCV 96.3 80.0 - 08/25 [place] 94.0 [facility] [place] HEMATOLOGY MCH 31.8 27.0 - 08/25 [place] 31.0 [facility] [place] HEMATOLOGY MCHC 33.0 32.0 - 08/25 [place] 36.0 [facility] [place] HEMATOLOGY Hct 31.3 42.0 - 08/25 [place] 54.0 [facility] [place] HEMATOLOGY MPV 8.5 7.4 - 10.4 08/25 [facility] HEMATOLOGY Platelet 358 133 - 450 08/25 [facility] HEMATOLOGY RDW 14.4 11.5 - 08/25 [place] 14.5 [facility] ELECTROLYTES AGAP 13.7 10.0 - 08/24 [place] 20.0 [facility] ELECTROLYTES CO2 30 24 - 32 08/24 [facility] ELECTROLYTES Chloride Lvl 108 95 - 109 08/24 [facility] Potassium 4.7 3.5 - 5.1 08/24 [place] [facility] ELECT[facility]TES Sodium Lvl 147 135 - 145 08/24 [facility] ELECTROLYTES Calcium Lvl 8.1 8.5 - 10.5 08/24 [facility] ELECTROLYTES Creatinine 0.90 0.50 - 08/24 [place] [facility] ELECTROLYTES BUN 32 7 - 22 10 [facility] ELECTROLYTES Glucose Lvl 109 70 - 99 08/24 [place] [facility] ELECTROLYTES eGFR 95 08/24 Result Comment: The Medical eGFR is Center calculated using the CKD-EPI formula. In most young, healthy individuals the eGFR will be >90 mL/min/1.73m2 . The eGFR declines with age. An eGFR of 60-89 may be normal in some populations, particularly the elderly, for whom the CKD-EPI formula has not been extensively validated. Use of the eGFR is not recommended in the following populations:< br/>
Domenica viduals with unstable creatinine concentration s, including patients and those with serious co-morbid conditions.<b r/>
Patie nts with extremes in muscle mass or diet.

The data above are obtained from the National Kidney Disease Education Program (NKDEP) which additionally recommends that when the eGFR is used in patients with extremes of body mass index for purposes of drug dosing, the eGFR should be multiplied by the estimated BMI. HEMATOLOGY MCV 97.8 80.0 - 08/24 [facility] 94.0 [facility] HEMATOLOGY MCH 31.9 27.0 - 08/24 [facility] 31.0 [facility] HEMATOLOGY MCHC 32.7 32.0 - 08/24 [facility] 36.0 [facility] HEMATOLOGY Hct 30.8 42.0 - 08/24 [facility] 54.0 [facility] HEMATOLOGY Hgb 10.1 14.0 - 08/24 [facility] 18.0 [facility] HEMATOLOGY WBC 15.9 3.7 - 10.4 08/24 [facility] HEMATOLOGY RBC 3.15 4.70 - 08/24 [place] 6.10 [facility] HEMATOLOGY MPV 9.0 7.4 - 10.4 08/24 [facility] HEMATOLOGY RDW 14.4 11.5 - 08/24 [facility] 14. [facility] HEMATOLOGY Platelet 305 133 - 450 08/24 [facility] CHEM PANEL Magnesium 2.1 1.8 - 2.4 08/23 [facility] Lvl [facility] CHEM PANEL Phosphorus 3.1 2.5 - 4.5 08/23 [facility] BLOOD BANK Antibody Negative 08/23 [facility] RESULTS Scrn (08/22/17 8:20 PM) /2016 [facility] BLOOD BANK ABO/Rh O POS 10/05 [place] [facility] CHEM PANEL Lactic Acid 1.3 0.5 - 2.2 08/22 [facility] CHEM PANEL Lactic Acid 0.8 0.5 - 2.2 08/22 [facility] ELECTROLYTES Sodium Lvl 142 135 - 145 08/22 [facility] ELECTROLYTES Chloride Lvl 103 95 - 109 08/22 [facility] ELECTROLYTES Calcium Lvl 9.1 8.5 - 10.5 08/22 [facility] ELECTROLYTES Potassium 3.9 3.5 - 5.1 08/22 [facility] ELECTROLYTES eGFR 98 08/22 [facility] Comment: The [facility] eGFR is [place] calculated using the CKD-EPI formula. In most young, healthy individuals the eGFR will be >90 mL/min/1.73m2 . The eGFR declines with age. An eGFR of 60-89 may be normal in some populations, particularly the elderly, for whom the CKD-EPI formula has not been extensively validated. Use of the eGFR is not recommended in the following populations:< br/>
Domenica viduals with unstable creatinine concentration s, including patients and those with serious co-morbid conditions.<b r/>
Patie nts with extremes in muscle mass or diet.

The data above are obtained from the National Kidney Disease Education Program (NKDEP) which additionally recommends that when the eGFR is used in patients with extremes of body mass index for purposes of drug dosing, the eGFR should be multiplied by the estimated BMI. ELECTROLYTES Glucose Lvl 81 70 - 99 08/22 [facility] ELECTROLYTES Albumin Lvl 2.7 3.5 - 5.0 08/22 [facility] ELECTROLYTES ALT 32 0 - 65 08/22 [facility] ELECTROLYTES CO2 27 24 - 32 08/22 [facility] ELECTROLYTES Creatinine 0.85 0.50 - 08/22 Lvl 1.40 [facility] ELECTROLYTES AST 27 0 - 37 08/22 [facility] ELECTROLYTES BUN 17 7 - 22 08/22 [facility] ELECTROLYTES Alk Phos 116 39 - 136 08/22 [facility] ELECTROLYTES Bili Total 0.4 0.2 - 1.3 08/22 [facility] ELECTROLYTES Total 6.9 6.4 - 8.4 10 [facility] ELECTROLYTES B/C Ratio 20 6 - 25 10 [facility] ELECTROLYTES AGAP 15.9 10.0 - 08/22 [facility] 20.0 [facility] ELECTROLYTES A/G Ratio 0.6 0.7 - 1.6 08/22 [facility] ELECTROLYTES Globulin 4.2 2.7 - 4.2 08/22 [facility] HEMATOLOGY MPV 9.2 7.4 - 10.4 10 [facility] HEMATOLOGY Platelet 318 133 - 450 10 [facility] HEMATOLOGY MCH 32.7 27.0 - 08/22 31.0 [facility] HEMATOLOGY MCHC 34.2 32.0 - 10 36.0 /2016 [facility] HEMATOLOGY RDW 14.0 11.5 - 08/22 14. [facility] HEMATOLOGY RBC 4.14 4.70 - 08/22 [facility] 6.10 [facility] HEMATOLOGY WBC 20.2 3.7 - 10.4 08/22 [facility] HEMATOLOGY MCV 95.7 80.0 - 08/22 94.0 /2016 [facility] HEMATOLOGY Hgb 13.6 14.0 - 08/22 18.0 [facility] HEMATOLOGY Hct 39.6 42.0 - 08/22 54.0 /2016 [facility] HEMATOLOGY Eosinophils 0.1 0.0 - 0.5 08/22 [facility] # /2016 [facility] HEMATOLOGY Monocytes # 1.9 0.0 - 0.8 08/22 [facility] HEMATOLOGY Segs-Bands # 17.1 1.5 - 8.1 08/22 [facility] HEMATOLOGY Lymphocytes 1.1 1.0 - 5.5 08/22 /2016 [facility] HEMATOLOGY Monocytes 9.5 2.0 - 12.0 08/22 [facility] HEMATOLOGY Eosinophils 0.5 0.0 - 4.0 08/22 [facility] HEMATOLOGY Basophils 0.1 0.0 - 1.0 08/22 [facility] HEMATOLOGY Segs 84.6 45.0 - 08/22 [facility] 75.0 /2016 [facility] HEMATOLOGY Lymphocytes 5.3 20.0 - 08/22 [facility] 40.0 [facility] Pathology Reports No Data Provided for This Section Diagnostic Reports Report Value Date Source Facial Bones wo Exam: CT face without contrast. 09/17/2018 [facility] contrast/w 3D CT INDICATION: Exposed hardware left anterior late ral mandible. Center COMPARISON: 03/14/2018. TECHNIQUE: Noncontrast axial imaging of the face is performed. Coronal and sagittal reconstructions are performed. 3-D reconstructions are performed. 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 Mild soft tissue thickening in the adjacent soft tissues with mild thickening of the left platysma. No drainable fluid collections are identified. 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 Facial bone wo EXAM: CT FACE WITHOUT CONTRAST 03/14/2018 [facility] contrast CT DATE: 03/14/2018 11:[address] INDICATION: Osteomyelitis of the mandible TECHNIQUE: Axial noncontrast images thr ough the face with coronal and sagittal reformatted images. 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 A small linear focus of ossification is now present adjacent to th e inferior and medial aspect of the left mandibular body posterior to the fracture (image 18 series 4, image 65 series 6). Fixation plate is flush with the buccal mandibular cortex and there is no evidence of loosening along the fixation screws. Mild nonspecific hypoattenua tion thickening in the left mandibular buccal mucosal space deep to the SMAS, in continuity with the fracture defect in the buccal mandibular cortex. The oral cavity is edentulou s. Chronic depressed right lamina papyracea fracture. Except for mild ethmoidal mucosal disease, the paranasal sinuses and mastoid air cells are clear. 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 Small linear focus of ossification is now present adjacent to the inferomedial cortex of the left mandibular body posterior to the fracture. Mild nonspecific thickening in the left mandibular buccal mucosal space in continuity with the chronic fracture defect. No drainable collection. Facial Bones wo EXAM: Facial Bones wo contrast/w 3D CT 8 [facility] contrast/w 3D CT DATE: 01/11/2018 2:[address] [facility] [address] INDICATION: - post op CT scan COMPARISON: CT 01/10/2018 TECHNIQUE: Axial images of t he face with 3-D reformatted images were performed without contrast administration. DISCUSSION: Status post ORIF of a left m andibular body fracture with surgical extraction of retained root tip #6. There has been interval debridement of the bone and placement of a left mandibular plate with screws in satisfactory anatomic al ignment. There is swelling of the overlying soft tissues with small amount of postoperative air. No discrete fluid collections. Small amount of mucosal thickening within the left maxillary sinus. IMPRESSION: Postoperative changes of ORIF of left ma ndibular body fracture/osteomyelitis . Facial Bones wo CT FACIAL BONES WITHOUT CONTRAST 01/10/2018 [facility] contrast/w 3D CT DATE: 01/10/2018 at [facility] INDICATION: - acute osteomyelitis COMPARISON: CT soft tissue neck 09/06/2017. TECHNIQUE: Volumetric CT acq uisition of the facial bones without contrast. Axial, coronal and sagittal reconstructions. IV contrast: None. DLP: 677.20 DISCUSSION: There is a commi nuted, ununited chronic appearing fracture of the left anterior horizontal mandibular ramus. There is some osteophyte formation at the margins of the pseudoarthrosis. A butte rfly fragment is noted more centrally which may represent a sequestrum in the setting of osteomyelitis. There is an approximately 8 mm in thickness collection within the superficial art instructor space whi ch may represent a phlegmon. Enlarged left submandibular lymph nodes are noted likely reactive in origin. History is given of a retain ed left maxillary root fragment. No left-sided root fragment is noted. There is a root fragment noted in the region of tooth #6 on the right side. The patient is otherwise edentulous. IMPRESSION: 1. Chronic ununited fracture of the anterior left horizontal mandibular ramus with associated inflammatory changes suggesting chronic osteomyelitis. Neck soft tissue wo EXAM: CT OF THE NECK WITHOUT CONTRAST 2016 [facility] contrast CT DATE: 09/06/2017 at 10:49 AM T Center INDICATION: Sascha's angina, postop, palpable ma ss. - salivary gland COMPARISON: 08/22/2017. TECHNIQUE: Axial images of the neck wer e obtained after intravenous contrast. Reformatted images in the sagittal and coronal plane were included. IV contrast: None. DLP: 765.32 mGy-cm. FINDINGS: This study is limited somewh at by the lack of intravenous contrast. Again noted is a low density fluid collection within the left masseter muscle overlying the left mandibular angle and measuring approx imately 2.2 x 1.6 x 3.0 cm. This may be slightly larger than on the previous study however the lack of change his contrast limits this determination. The remainder of the periphe ral enhancing fluid collections within the floor the mouth, root of the tongue, and left sublingual and submental mandibular spaces has resolved. The abscess within the left lateral pterygoid muscle is not redemonstrated without intravenous contrast and may have likely resolved. The enlarged reactive lymph nodes within the bilateral submandibular and internal jugular chains appears smaller. A skin defect is noted within the left submandibular space from prior drainage. There has been interval extr action of the remaining teeth. The patient is now edentulous. Periapical lucencies are again noted consistent with periodontal disease. No intrinsic abnormalities o f the upper aerodigestive tract. The airways normal appearance. There are no pharyngeal mucosal space mass lesions. The salivary glands including the paroti d and submandibular glands are normal. Imaged portions of the paran emiliano sinuses and mastoid air cells are clear. Imaged portions of the brain and orbits are unremarkable. Degenerative changes are again noted within the lower cervical spine. The lung apices are clear. IMPRESSION: 1. Residual fluid collection within the left masseter muscle possibly slightly larger than on the previous study. Lack of intravenous contrast limits comparison. 2. Interval improvement of L udwig's angina and resolution of enhancing fluid collections within the root of the tongue, the left floor the mouth, left sublingual and submandibular spaces. The a bscess of the left lateral pterygoid muscle has also appeared to resolve. 3. Residual reactive lymphadenopathy. 4. Degenerative spondylosis. Chest 1view DX EXAM: XR CHEST 1 VIEW 08/26/2017 [facility] edical DATE: 08/26/2017 3:00 AM CDT Cent er INDICATION: - Dyspnea, Hypoxia COMPARISON: 08/25/2017 TECHNIQUE: AP chest IMPRESSION: 1. Interval extubation and removal of the gastr ic tube. 2. Few scattered atelectati c changes bilaterally. Otherwise, lungs are clear. Costophrenic recesses are sharp. Cardiomediastinal silhouette within normal limits. Aortic atherosclerotic disease. 3. No acute osseous abnormalities. Chest 1view DX EXAM: XR CHEST 1 VIEW 08/25/2017 [facility] edical DATE: 08/25/2017 3:00 AM CDT Cent er INDICATION: - Intubated COMPARISON: 08/23/2017 TECHNIQUE: AP chest IMPRESSION: 1. Lines and tubes are stable. 2. Few scattered atelectati c changes bilaterally. Otherwise, lungs are clear. Costophrenic recesses are sharp. Cardiomediastinal silhouette within normal limits. Aortic atherosclerotic disease. 3. No acute osseous abnormalities. Chest 1view DX EXAM: XR CHEST 1 VIEW 08/23/2017 [facility] edical DATE: 08/23/2017 8:15 AM CDT Cent er INDICATION: - intubated COMPARISON: Chest radiograph 08/23/2017 TECHNIQUE: AP chest FINDINGS: Lines, tubes and hardware: T endotracheal tube is approximately 7 cm above the alea. A gastric tube terminates in the stomach. Lungs and pleura: No pulmona ry or pleural based abnormality is identified. Pulmonary vascularity is normal. Heart and mediastinum: The h eart size is normal for technique. The mediastinal contours are normal. Bones: No acute bony abnormality is identified. IMPRESSION: 1. No significant interval change compared to t he prior study. Abdomen 1 v for EXAM: XR ABDOMEN 1 VIEW 08/23/2017 [facility] Placement DX DATE: 08/23/2017 at 0648 hours C enter INDICATION: - og placement ADDITIONAL INFORMATION: None. COMPARISON: 08/23/2017 at 0059 hours TECHNIQUE: Limited AP view of the abdomen for tube placement assessment. Number of images: 1 FINDINGS: Transesophageal feeding tube (tip): None present Transesophageal suction tube (sidehole): Proxima l stomach. Other tubes, lines and hardw are: Electrocardiogram leads and snaps overlie the patient. Other: No other changes. IMPRESSION: 1. Tube positions as above. Abdomen 1 v for EXAM: XR ABDOMEN 1 VIEW 08/23/2017 [facility] Placement DX DATE: 08/22/2017 11:[address] INDICATION: - OGT TECHNIQUE: AP view of the abdomen. 2 AP views. FINDINGS: Both views show a n NG tube in place. The tube tip is in the gastric fundus in good position. A right-sided chest tube is in place. There are no dilated loops of large or small bow el. The lung is clear. IMPRESSION: 1. The NG tube is in good position. Chest 1 v for EXAM: XR CHEST 1 VIEW 08/23/2017 [facility] edical Placement DX DATE: 08/23/2017 12:[address] INDICATION: Line Placement - Chest 1 view for ET T placement COMPARISON: None. TECHNIQUE: AP chest FINDINGS: Lines, tubes and hardware: E ndotracheal tube with tip terminates 6.4 cm above the alea. Gastric tube with adequate positioning. Lungs and pleura: Minimal bi basilar atelectatic changes. Otherwise, lungs are clear. Costophrenic sulci are sharp. Heart and mediastinum: normal for technique. Bones: No acute bony abnormality is identified. IMPRESSION: 1. Lines and tubes as described above. 2. No acute cardiopulmonary abnormality. Neck soft tissue w CT neck soft tissues with in travenous contrast 08/22/2017 9:00 AM CDT 08/22/2017 [facility] contrast CT Clinical: Left tooth abscess with left face ceci a. Comparison: No prior exam. Technique: Axial images were obtained. Sagittal and coronal MPR images are also submitted. The DLP is 350 mGy*cm. This exam was performed according to our department dose optimization protocol, which i ncludes automated exposure c ontrol, adjustment of the mA and/or kV according to patient size and/or use of iterative reconstruction technique. Findings: Mandibular dental periapical lucencies are seen concerning for periapical abscesses, involving teeth #22, 23, 27 and 28. Small posterior mandibular cortex dehiscence at T6 #2223 are seen. Ill-defined fluid collection s are seen within the root of tongue extending to the floor of mouth. Left sublingual space irregular mildly rim-enhancing fluid collections suspicious for abscess is present , measuring 3.2 x 2.4 cm axi al dimensions, with mild extension into the left submandibular space. Also, left art instructor space intramuscular abscesses are present involving the left maxillary muscle measuring 1.5 x 1.1 cm, and the left lateral pterygoid extending to the level of the zygomatic arch measuring 1.1 x 1.2 x 2.8 cm. Left parapharyngeal space ce llulitis is seen without focal fluid collection. The retropharyngeal spaces appear intact. Mild bilateral upper deep ce rvical chain adenopathy is seen measuring up to 1.5 x 2.4 cm. No lymph node necrosis. Bilateral submandibular adenopathy is present measuring up to 2.1 x 1.0 cm. Lower face and submental cellulitis is present. Cervical spine degenerative changes are present. IMPRESSION: 1. Extensive root of tongue, floor of mouth, left sublingual, left art instructor space phlegmons or abscesses, likely originating from the left mandibular dental periapical abscesses as above. 2. Bilateral subinsular and upper deep cervical chain adenopathy. The findings were called to Dr. Griffiths on 7 1022 AM CDT. Consultation Notes No Data Provided for This Section Discharge Summaries No Data Provided for This Section History and Physicals No Data Provided for This Section Vital Signs Vital Sign Value Date Comments Source [facility] 66.818 [facility] 16 11/14/2018 [facility] Heart Rate 82 11/14/2018 [facility] Center Systolic (mm Hg) 107 11/14/2018 [facility] dical Center Diastolic (mm Hg) 76 11/14/2018 [facility] edical Center BMI Calculated 19.7 10/29/2018 [facility] Weight 67.727 10/29/2018 [place] [facility] Systolic (mm Hg) 119 10/29/2018 [facility] dical Center Diastolic (mm Hg) 86 10/29/2018 [facility] edical Center Height 185.42 cm 10/29/2018 [facility] Heart Rate 80 10/29/2018 [place] [facility] Respitory Rate 16 10/29/2018 [facility] Heart Rate 63 10/23/2018 [facility] Center Systolic (mm Hg) 104 10/23/2018 [facility] dical Center Diastolic (mm Hg) 59 10/23/2018 [facility] edical Center Respitory Rate 17 10/23/2018 [facility] Respitory Rate 18 10/23/2018 [facility] Systolic (mm Hg) 100 10/23/2018 [facility] dical Center Diastolic (mm Hg) 64 10/23/2018 [facility] edical Center Respitory Rate 15 10/23/2018 [facility] [place] [facility] Systolic (mm Hg) 107 10/23/2018 [place] [facility] Diastolic (mm Hg) 64 10/23/2018 [facility] M edical Center Heart Rate 75 10/23/2018 [place] [facility] BMI Calculated 19.83 10/23/2018 [place] [facility] Weight 68.182 10/23/2018 [place] [facility] Height 185.42 cm 10/23/2018 [place] [facility] Weight 68.182 10/22/2018 [place] [facility] BMI Calculated 19.83 10/22/2018 [place] [facility] Height 185.42 cm 10/22/2018 [place] [facility] Systolic (mm Hg) 127 09/17/2018 [place] [facility] Diastolic (mm Hg) 85 09/17/2018 [facility] edical Center Heart Rate 73 09/17/2018 [place] [facility] Respitory Rate 17 09/17/2018 [place] [facility] BMI Calculated 20.16 09/17/2018 [place] [facility] Weight 69.318 09/17/2018 [place] [facility] Height 185.42 cm 09/17/2018 [place] [facility] BMI Calculated 20.62 06/06/2018 [place] [facility] Weight 70.909 06/06/2018 [place] [facility] Height 185.42 cm 06/06/2018 [place] [facility] Heart Rate 72 06/06/2018 [place] [facility] Respitory Rate 19 06/06/2018 [place] [facility] Systolic (mm Hg) 126 06/06/2018 [place] [facility] Diastolic (mm Hg) 91 06/06/2018 [facility] M edical Center Respitory Rate 18 03/28/2018 [place] [facility] Heart Rate 74 03/28/2018 [place] [facility] Systolic (mm Hg) 127 03/28/2018 [place] [facility] Diastolic (mm Hg) 96 03/28/2018 [place] [facility] Weight 71.818 03/28/2018 [place] [facility] Weight 72.273 03/14/2018 [place] [facility] BMI Calculated 21.02 03/14/2018 [place] [facility] Height 185.42 cm 03/14/2018 [place] [facility] Respitory Rate 18 03/14/2018 [place] [facility] Systolic (mm Hg) 125 03/14/2018 [facility] dical Center Diastolic (mm Hg) 91 03/14/2018 [facility] edical Center Heart Rate 68 03/14/2018 [facility] Medica l Center Respitory Rate 16 02/21/2018 [facility] BMI Calculated 20.89 02/21/2018 [facility] Weight 71.818 02/21/2018 [facility] Heart Rate 71 02/21/2018 [facility] Systolic (mm Hg) 127 02/21/2018 [facility] Diastolic (mm Hg) 89 02/21/2018 [facility] ed[facility] Center Height 185.42 cm 02/21/2018 [facility] Respitory Rate 16 01/29/2018 [facility] Heart Rate 80 01/29/2018 [facility] Weight 70 01/29/2018 [facility] Systolic (mm Hg) 126 01/29/2018 [facility] Diastolic (mm Hg) 87 01/29/2018 [facility] ed[facility] Center Systolic (mm Hg) 124 01/18/2018 [facility] Diastolic (mm Hg) 77 01/18/2018 [facility] Center Respitory Rate 18 01/18/2018 [facility] Heart Rate 60 01/18/2018 [facility] Respitory Rate 18 01/18/2018 [facility] Heart Rate 60 01/18/2018 [facility] Systolic (mm Hg) 116 01/18/2018 [facility] Diastolic (mm Hg) 74 01/18/2018 [facility] Center Respitory Rate 18 01/18/2018 [facility] Systolic (mm Hg) 118 01/18/2018 [facility] Diastolic (mm Hg) 75 01/18/2018 [facility] Center Heart Rate 54 01/18/2018 [facility] Temperature Oral (F) 97.7 F 01/14/2018 [facility] Temperature Oral (F) 97.1 F 01/14/2018 [facility] Temperature Oral (F) 97.9 F 01/13/2018 [facility] Height 185.42 cm 01/11/2018 [facility] BMI Calculated 19.83 01/11/2018 [facility] Weight 68.182 01/11/2018 [facility] Weight 68.182 01/11/2018 [facility] BMI Calculated 19.7 01/10/2018 [facility] Weight 67.727 01/10/2018 [facility] Height 185.42 cm 01/10/2018 [facility] Heart Rate 74 01/10/2018 [facility] Systolic (mm Hg) 118 01/10/2018 [facility] Diastolic (mm Hg) 88 01/10/2018 [facility] Weight 70 12/27/2017 [facility] Respitory Rate 18 12/27/2017 [facility] Heart Rate 76 12/27/2017 [facility] Systolic (mm Hg) 137 12/27/2017 [facility] Diastolic (mm Hg) 92 12/27/2017 [facility] Weight 70 11/06/2017 [facility] BMI Calculated 20.36 11/06/2017 [facility] Respitory Rate 18 11/06/2017 [facility] Height 185.42 cm 11/06/2017 [facility] Systolic (mm Hg) 125 11/06/2017 [facility] Diastolic (mm Hg) 92 11/06/2017 [facility] Heart Rate 72 11/06/2017 [facility] Systolic (mm Hg) 121 10/23/2017 [facility] Diastolic (mm Hg) 88 10/23/2017 [facility] Heart Rate 77 10/23/2017 [facility] Respitory Rate 18 10/23/2017 [facility] Weight 65.909 10/23/2017 [facility] BMI Calculated 19.17 10/23/2017 [facility] Height 185.42 cm 10/23/2017 [facility] BMI Calculated 19.57 10/09/2017 [facility] Weight 67.273 10/09/2017 [facility] Height 185.42 cm 10/09/2017 [facility] Systolic (mm Hg) 170 10/09/2017 [facility] Diastolic (mm Hg) 82 10/09/2017 [facility] Respitory Rate 16 10/09/2017 [facility] Heart Rate 80 10/09/2017 [facility] Systolic (mm Hg) 96 10/03/2017 [facility] Diastolic (mm Hg) 52 10/03/2017 [facility] Respitory Rate 92 10/03/2017 [facility] Heart Rate 67 10/03/2017 [facility] Respitory Rate 20 10/03/2017 [facility] Systolic (mm Hg) 114 10/03/2017 [facility] Diastolic (mm Hg) 69 10/03/2017 [facility] Respitory Rate 14 10/03/2017 [facility] Systolic (mm Hg) 89 10/03/2017 [facility] Diastolic (mm Hg) 56 10/03/2017 [facility] Center Heart Rate 71 10/03/2017 [facility] Height 185.42 cm 10/03/2017 [facility] BMI Calculated 18.91 10/03/2017 [facility] Weight 65 10/03/2017 [facility] Respitory Rate 18 08/27/2017 [facility] Systolic (mm Hg) 164 08/27/2017 [facility] Diastolic (mm Hg) 93 08/27/2017 [facility] Center Heart Rate 90 08/27/2017 [facility] Respitory Rate 18 08/27/2017 [facility] Systolic (mm Hg) 176 08/27/2017 [facility] Diastolic (mm Hg) 94 08/27/2017 [facility] Heart Rate 62 08/27/2017 [facility] Systolic (mm Hg) 182 08/27/2017 [facility] Diastolic (mm Hg) 106 08/27/2017 [facility] Respitory Rate 18 08/27/2017 [facility] Heart Rate 75 08/27/2017 [facility] Height 185.42 cm 08/25/2017 [facility] Height 185.42 cm 08/25/2017 [facility] Height 185.42 cm 08/25/2017 [facility] Weight 67.273 08/23/2017 [facility] BMI Calculated 19.57 08/23/2017 [facility] Temperature Oral (F) 100.7 F 08/22/2017 [facility] Temperature Oral (F) 99.4 F 08/22/2017 [facility] Temperature Oral (F) 98.4 F 08/22/2017 [facility] BMI Calculated 19.83 08/22/2017 [facility] Weight 68.182 08/22/2017 [facility] Respitory Rate 16 08/22/2017 [facility] Heart Rate 98 08/22/2017 [facility] Systolic (mm Hg) 150 08/22/2017 [facility] Diastolic (mm Hg) 88 08/22/2017 [facility] Heart Rate 86 08/22/2017 [facility] Respitory Rate 18 08/22/2017 [facility] Systolic (mm Hg) 162 08/22/2017 [facility] Diastolic (mm Hg) 92 08/22/2017 [facility] Systolic (mm Hg) 156 08/22/2017 [facility] Diastolic (mm Hg) 90 08/22/2017 [facility] Respitory Rate 18 08/22/2017 [facility] Heart Rate 90 08/22/2017 [facility] Temperature Oral (F) 98.3 F 08/22/[address] [facility] Weight 68.182 08/22/2017 [facility] BMI Calculated 20.39 08/22/2017 [facility] Height 182.88 cm 08/22/2017 [facility] Encounters Location Location Encounter Encounter Reason Attending ADM ID Stat us Source Details Type Number For Provider Date Date Visit [facility] [id number] Rodrigue 08/22 08/22 [facility] /[address] [facility] [id number] Gee Edwards 08/22 08/28 [facility] Recurring [id number] Jase 09/06 10/06 [facility]2016 [facility] Day [id number] Jase 10/03 10/04 [facility] [place] /2016 [facility] Recurring [id number] Jase 10/09 11/08 [facility] /2016 [facility] Emergency [id number] Rodrigue 12/26 12/26 [facility] /2017 [facility] Recurring [id number] Jase 12/27 01/26 [facility] /2017 [facility] Inpatient [id number] Jase 01/10 01/18 [facility] /2017 [facility] Recurring [id number] Jase 01/29 02/28 [facility] Recurring [id number] Jase 03/14 04/13 [facility] Recurring [id number] Jase 06/06 07/06 [facility] Recurring [id number] Jase 09/17 10/17 [facility] Day [id number] Jase 10/23 10/24 [facility] Recurring [id number] Jase 10/29 11/28 [facility] /2017 [facility] Procedures Procedure Code Date Perfomer Comments Source Operation<sup>1 [id number] remonal of teeth [facility] </sup> [facility] Operation<sup>1 [id number] x3 mouth [facility] , 2</sup> [facility] Assessment and Plan Assessment and Plan Date Source Extracted from:Title: OMFS PROGRESS FOLLOW UP NOTE 11/28/19 19 [facility] Author: Fartun Hernandez SUPERVISOR RICE MILLING Date: 10/29/18 OMFS Clinic Follow up note Date: 10/29/2018 Time: 0800 AM Faculty: Dr. Hank Pringle DDJuaquin, MD Provider: Nancy Hernandez RN, MS, KITCHEN HELP HANDYMAN-BC Reason for Visit: Post operative Visit HPI: A 58 year old male s/p his most cur rent procedure removal of exposed left mandibular hardware now 6 days post operative. Continues to take antibiotics prescribed by infectious dx. Previous Procedures: 08/22/17: Incision and drainge of left duran bmandibular, submental, sublingual, pterygomandibular, submasseteric and temporal space infection, right submandibular space infection and extraction of teeth 2, 3, 4, 6, 10, 11, 12, 14 16, 18, 19, 23, 24, 25, 26, 27, 28, 29, 31 10/03/2017 FNA of left masseteric mass, I&D of left masseteric abscess, debridement of exposed bone (pathlogy negative for malignancy) 10/09/2017 open wound left lingual mandible 10 mm by 10 mm 10/23/2017 follow up appointment wound 2 mm by 2 mm remaining exposed left mandible; 01/11/2018 ORIF left mandibular body fra cture; debridement of left mandible, surgical extraction of retained root tip #6 after pathologic fracture to left mandibular body found during clinic visit. 10/23/2018 Removal of exposed left mandibular hardware. Medications: Flagyl, Peridex, Tylenol, Augmentin Pain: minimal Vital signs: BP 119/86 P 80 Resp 16 Temp 98.3 O2 Sat 10 0% Occlusion: Edentulous ELYSE: Dartive dyskinesia Intraoral: Membranes pink. Wounds healin g well with 5 mm wide by 4 cm long wound dehiscence with granulation tissue at the base. Edentulous. Contour: nomal Swelling: resolved Neuro: Continues pre-operative left V3 hypothesia Assessment: A 58 year old male s/p his most current procedure removal of exposed left mandibular hardware now 6 days post operative. The intra-oral site is healing well. There is a 5 mm wide by 4 cm l mirta dehiscence with granulation tissue a t the base. Dr. Pringle evaluated this patient during this visit. Plan: Follow up: one week to re-assess healing Maintain good oral care Try to decrease smoking Keep well hydrated Diet: soft Apply heating pad to left side of face on low to promote hea ling Continue antibioticsper recommendations Infectious Dx Nancy Hernandez RN, MS, KITCHEN HELP HANDYMAN-BC OMFS Extracted from:Title: OMFS discharge summary 10/24/2018 [facility] Author: Riccardo Palm DDS Date: 10/23/18 OMFS Discharge note 10/23/2018 13:55 DISCHARGE AND DC IV IF MEETS DISCHARGE CRITERIA ADMISSION DATE:Patient was admitted on 10/23/2018 DATE OF DISCHARGE:10/23/18 ADMISSION DX:Exposed mandibular hardware DSICHAGE/FINAL DX: Exposed mandibular hardware ADMISSION ATTENDING:Dr Childress DISCHARGE ATTENDING:De. Childress DX:Exposed mandibular hardware PROCEDURES:Removal of exposed hardware HOSPITAL COURSE: Patient presented day surgery , he was taken to the OR where he underwent the above procedures without complication. . He was extubated without any issues and was transferred to PACU where he continue d to have an uncomplicated post operativ e course. At the time of discharge he is feeling much improved, his vitals and labs are normal, his wounds are clean and hemostatic, he is tolerating a PO diet, ambulating and voiding without difficulty CONSULTS:n/a ROUTE:home CONDITION AT DISCHARGE:good DIET:liquid ACTIVITY:at ramya INSTRUCTIONS: - Return to the [facility] ER if you develop an y of the following: increased trismus, shortness of breath, difficulty breathing, increased swelling, significant pain, persistent bleeding. - Take all medications as prescribed. - Maintain oral hygiene, OK to brush teeth; use Peridex BID for 30 seconds. - Follow up on (10/31/2018) maria antonia Pringle/ Dr. Childress. Please call [phone] for an appointment. The [facility] OMFS clinic is located in the basement of [facility]. DISCHARGE MEDS: FOLLOW UP: (for [facility] call [phone] for an appointment) VS AT DISCHARGE: Temperature No result Systolic Blood Pressure 126 (08:14) Diastolic Blood Pressure 80 (08:14) Pulse 75 (08:14) SpO2 98 (08:14) Respiratory Rate 18 (08:14) EXAM SUMMARY AT DISCHARGE: Physical exam: General: NAD Neuro: AAO x 3, CN5 and 7 grossly intact HEENT:NC/AT Intraoral: sutures intact, surgical sites hemostatic Pulm:CTAB, nonlabored breathing CV:RRR GI:NT/ND Ext:FROM Riccardo Palm DDS photoengraving proofer apprentice PGY-1 Extracted from:Title: OMFS FOLLOW UP NOTE 07/06/2018 [facility] Author: Fartun Hernandez NP Date: 06/06/18 OMFS Clinic Follow up note Date: 06/06/18 Time: 0900AM Faculty: Dr. Jase Barton DDS, MD Provider: Nancy Hernandez RN, MS, KITCHEN HELP HANDYMAN-BC Reason for Visit: Five and a half month follow up of ORIF left mandible. Plus patient stated on his visit to [place] Infectious Dx he was told he needed the mandibular plate removed as possible source of recurrence of infection. HPI: A 57 year old male s/p his most current operation of ORIF left mandible due to pathologic fracture/osteomyelitis, non-healing of left mandible. Continues to smoke, now down to 3/4 to 1/2 packs per day. He was seen by [facility]: continues Augmentin and Fla gyl. Procedures: 08/22/18: Incision and drainge of left duran bmandibular, submental, sublingual, pterygomandibular, submasseteric and temporal space infection, right submandibular space infection and extraction of teeth 2, 3, 4, 6, 10, 11, 12, 14 16, 18, 19, 23, 24, 25, 26, 27, 28, 29, 31 (08/22/2017). 10/03/2017 FNA of left masseteric mass, I&D of left masseteric abscess, debridement of exposed bone (pathlogy negative for malignancy) 10/09/2017 open wound left lingual mandible 10 mm by 10 mm 10/23/2017 follow up appointment wound 2 mm by 2 mm remaining exposed left mandible; 01/11/2018 ORIF left mandibular body fra cture; debridement of left mandible, surgical extraction of retained root tip #6 after pathologic fracture to left mandibular body found during clinic visit. ( pathology specimen lost to evaluation). Cultures: 01/11/2018 Anerobic: Black Pigmented Provotella, Provotella Dentico la Gram Stain: Strep Constellatus; Staph, not aureus; Neisseri a subflava [employer], Fungal: Negative Medications: lyrica, peridex, clonazepam , tizanidine, botox injections, antibiotics rx'ed by [facility]( augmentin and flagyl) Pain: minimal Vital signs: BP 126/91 P 72 Resp 19 Temp 98.5 Occlusion: edentulous ELYSE: 34-36 mm Intraoral: Edentulous. Membranes pink we ll perfused. Left maxillary buccal vestibule previously exposed hardware (screw) now covered with membranous tissue. Contour: Normal Swelling: Resolved Neuro: Facial movements inplace. Facial sensation present. Previous V3 anesthesia. Tardive dyskinesia Assessment: A 57 year old male 5.5 month s postoperative ORIF of left mandinbular body pathological fracture, debridement of left mandible and surgical extraction of retained root tip #6. Intra-oral an d extra-oral wounds well healed. No felecia dence of acute infection. Dr. Childress spoke with patient concerning removal of mandibular plate. Plan: No signs of acute infection at this time; will continue to m onitor Mainatain good oral hygiene Encouraged to reduce daily smoking ( down to 3/4 pack from 1 pack a day) Follow up: one month Dr. Childress and Chief Resident will conta ct [facility] , Dr. Oj Oleary , office) for discussion on his concerns. Encouraged patient to see general dentist for discussion on dentures Will obtain CT Scan of Facial bones in o ne month to evaluation bone closure and granulation. Call the clinic at [phone] for questions or concerns Nancy Hernandez RN, MS, KITCHEN HELP HANDYMAN-BC OMFS Extracted from:Title: [facility] Progress Note 01/18/2018 [facility] Author: Maria E Harrell MD Date: 01/18/18 Patient: PHIL MORENO Age: 57 years Sex: Male : 1960 Associated Diagnoses: None Author: Maria E Harrell MD Subjective Doing well, no complaints. Ready to go h ome. Happy to have PO regimen to go home on. Review of Systems Constitutional: No fever, No chills. Eye: No double vision. Respiratory: No shortness of breath, No cough, No sputum pr oduction. Cardiovascular: No chest pain. Gastrointestinal: No nausea, No vomiting, No diarrhea. Musculoskeletal: No neck pain. Integumentary: No rash. Neurologic: Alert and oriented X4. Health Status Allergies: Allergic Reactions (All) Severity Not Documented Wellbutrin- No reactions were documented. Canceled/Inactive Reactions (All) Severity Not Documented NKDA- No reactions were documented. Objective Meds Scheduled Meds: None Unscheduled Meds: None PRN Meds: None One Time Meds: None Continuous Infusions: None I&O Input/Output Record In Out Bal 01/18 24hr Tot 0 0 0 01/17 24hr Tot 1100 0 1100 VS/Measurements Vital Signs (last 24 hrs) Last Charted _ Temp Axillary 97.8 DegF (JAN 18 08:35) Heart Rate Peripheral 60 bpm (JAN 18 08:35) Resp Rate 18 BRMIN (JAN 18 08:35) SBP 124 mmHg (JAN 18 08:35) DBP 77 mmHg (JAN 18 08:35) SpO2 100 % (JAN 18 08:35) General: Alert and oriented, No acute distress. Eye: Extraocular movements are intact. HENT: Normocephalic. Neck: Supple, No jugular venous distention, No lymphadenopa thy. Respiratory: Lungs are clear to auscultation, Breath sounds are equal. Cardiovascular: Normal rate, Regular rhythm. Gastrointestinal: Soft, Non-tender, Normal bowel sounds. Genitourinary: No inguinal tenderness. Musculoskeletal Normal range of motion. Integumentary: Warm. Neurologic: Alert, Oriented, Normal sensory, Normal motor f unction. Psychiatric: Cooperative. Review / Management Results review: Labs (Last four charted values) WBC 6.8 (FEB 27) 7.8 (FEB 26) 8.5 (FEB 25) H 13.8 (FEB 24) Hgb L 12.8 (FEB 2 7) L 13.1 (FEB 26) L 12.9 (FEB 25) L 12.5 (FEB 24) Hct L 37.3 (FEB 2 7) L 38.9 (FEB 26) L 37.9 (FEB 25) L 36.9 (FEB 24) Plt 234 (FEB 27) 234 (FEB 26) 218 (FEB 25) 226 (FEB 24) Na 145 (FEB 27) 142 (FEB 26) 141 (FEB 25) 143 (FEB 24) K 4.1 (FEB 27) 4.4 (FEB 26) 4.1 (FEB 25) 4.7 (FEB 24) CO2 27 (FEB 27) 24 (FEB 26) 27 (FEB 25) 28 (FEB 24) Cl H 111 (FEB 27 ) 109 (FEB 26) 109 (FEB 25) 109 (FEB 24) Cr 0.70 (FEB 27) 0.67 (FEB 26) 0.73 (FEB 25) 0.82 (FEB 24) BUN 17 (FEB 27) 16 (FEB 26) 18 (FEB 25) 16 (FEB 24) Glucose Random 89 (FEB 27) 77 (JAN 14) 81 (JAN 13) 97 (JAN 12) Ca 8.9 (JAN 15) 8.6 (JAN 14) 8.7 (JAN 13) 8.5 (JAN 12) . Microbiology: 01/11/18 Tissue culture: Strep constellatus pending suscepti bility Neisseria in process Rare Staph non aureu s Prevotellla denticala with black pigmenta prevotella Antimicrobial: 01/15/18 started Vancomycin Ceftriaxone Flagyl Unasyn ( 01/11/18-01/14/18) Impression and Plan Mr. 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 Cx on 01/11 positive for Strep constellatus and prevotella pred ominantly, as well as Neisseria subflava and capnocytophaga---susceptible to rocephin, levoquin, penicillin. Problem list: 1. Chronic osteomyelitis of Left mandible s/p ORIF Recommendations: 1. For chronic osteomyelitis of left man dible: Patient tolerated Augmentin well overnight. Ok to discharge home on Augmentin. For mandibular OM, he will need treatment for minimum 6 weeks and possibly s everal months of treatment. Please ensur e patient follows-up at [facility] clinic with Dr. Oleary in 2 weeks. Thank you for this interesting consult. We will sign-off. Case was discussed with Infectious disease attending Dr. Silva. Maria E Harrell Internal Medicine, PGY-2 MSO# [id number]. [facility] The patient was seen and examined by me with the resident/SUPERVISOR RICE MILLING/PA and I agree with the History/Exam documented. Addendum by Luis Silva MD on 01/18/2018 21:44 Teaching Physician Statement I have seen and examined Mr Osvaldo with Dr. Harrell and I agree with her assessmment and plan as above. would discharge on PO augmentin with F/U in ID clinic. Luis Silva MD Extracted from:Title: Discharge Summary Author: Nestor Romano DDS Date: 01/18/18 OMFS Discharge note DATE AND TIME: 01/18/18 8:21 am DISCHARGE AND DC IV IF MEETS DISCHARGE CRITERIA ADMISSION DATE: 01/10/18 DATE OF DISCHARGE: 01/18/18 ADMISSION DX: Chronic osteomyelitis of t he eft mandible afer a severe odontogenic infection DSICHAGE/FINAL DX: Chronic osteomyelitis of the eft mandible afer a severe odontogenic infection, retaind root tip #6 ADMISSION ATTENDING: Dr. Urrutia DISCHARGE ATTENDING: Dr. Childress DX: Osteomyelitis of the left mandible and retained root tip #6 PROCEDURES: ORIF of the left madnible, d ebridement of the left mandible, extraction of tooth #6 HOSPITAL COURSE: 57 y/o male was admitted 01/10/18or debr idement of the left mandible, ORIF of mandible fractue, extaction of tooth #6, and management of osteomyelitis. Patient was taken to the OR on 01/11/18 for the pro cedures that are listed above. They were completed wihtout complication. After the sugery was performed, ID consultation was made for management of osteomyelitis. The patient was started on vancomycin, rocephin, and flagyl. Patient is an extr mignon needle phopbic and lost IV access multiple times. Recommendations from ID yesterday were to have patient on Augmentin TID for at least one month. Patient is t o be discharged today with Augmentin TID one month. CONSULTS: infectious disease CONDITION AT DISCHARGE: Good DIET: Soft none chew diet ACTIVITY: As tolerated, no contact to face INSTRUCTIONS: - Patient to f/u in OMFS 01/24/18 make f/u appointment by call [facility] [phone] - Patient is to f/u in infectious disease in two weeks with Dr. Oleary - If swelling worsens, or if you have an y concerns present immediately for further assessment DISCHARGE MEDS: - Peridex moth rinse BID one week - Augmentin 875 mg TID one month VS AT DISCHARGE: Vitals Tmp(F) Pulse BP RR SpO2 FIO2 01/18 03:20 97.5 60 116/74 18 99 --- 01/17 23:11 97.5 54 118/75 18 95 --- 01/17 20:08 97.6 50 116/81 20 96 --- 01/17 16:07 97.5 51 119/76 20 97 --- 01/17 11:14 97.5 61 142/89 20 --- --- 24 Hr Tmax: 97.6F (36.44c) at 01/17 20:0 8 Vital Signs are the last 5 in the past 48 hours. 01/18/2018 03:20 SpO2 percent 99 01/17/2018 16:07 Oxygen Therapy Mode Room air O2 Sat Location Right hand/finger EXAM SUMMARY AT DISCHARGE: Exam: General: Pt is AAOx3, in no acute distre ss, resting in bed with HOB at 30 degrees Head: Left sided facial swelling congruent with previous fin dings Eyes: EOMI Ears: EAM intact Nose: Nares patent, No discharge Neck: Trach midline, no crepitus Intra-oral: Tissues pink and well perfus ed, Wounds clean, intact, sutures remain approximating tissues well. Wound hemostatic, no signs of delayed healing Abdominal: NTND, Neuro: Left V3 parasthesia Extremeties: full ROM Pulmonary: CTAB Cardio: RRR SIGNATURE: Nestor Romano DDS photoengraving proofer apprentice PGY1 Extracted from:Title: Clinical Document Author: Oj Oleary MD Date: 01/15/18 ID Staff I saw and evaluated the patient on . I discussed the case with Dr. Harrell and agree with the findings and plans on the service note from that date. Extracted from:Title: OMFS H&P Author: Branden Urrutia DDS, MD Date: 01/10/18 [facility] Consultation/ History and Physical CC: left submandibular swelling and pain HPI: A 57 year old male 4.5 months s/p incisi on and drainge of left submandibular, submental, sublingual, pterygomandibular, submasseteric and temporal space infection, right submandibular space infection an d extraction of teeth 2, 3, 4, 6, 10, 11 , 12, 14 16, 18, 19, 23, 24, 25, 26, 27, 28, 29, 31 ( 08/22/2017). Pt has been following up with OMFS since the surgery where he had the following surgeries: () FNA of left masseteric mass, I &D of left masseteric abscess, debridement of exposed bone Pathlogy negative for malignancy, 10/09/2017 open wound left lingual mandible 10 mm by 10 mm, 10/23/2017 follow up appointment wound 2 mm by 2 mm remaining exposed left mandible. Today the pt presented to the clinic with exposed bone left mandible with increasing swelling. Pt denies fever, chills, dysphagia, dyspnea or odynophagia. Past Medical History: Tardive dyskinesia and substance abuse Past Surgical History: As detailed above Other injuries and dispositions: denies Medications: Lyrica, baclofen Allergies: Wellbutrin Family Health History: non contributary Social History: tobacco,+ etoh,+ illicit drugs,marijuana Review of systems: Pt denies: Fevers, chills, nausea, vomit ing, shortness of breath, chest pain, odynophagia, dysphagia, hearing/vision disturbances, headaches, seizures, syncope, kidney or liver problems, rashes, bleeding disorders Pt reports: Left sided facial pain and swelling Vital Signs: BP:118/91 P:74 RR:22 T:97.9 Exam: General: Pt is AAOx3, well nourished, in no acute distress, with involuntary facial movements Head: left submandibular swelling Ears: EAM intact, hearing WNL Eyes: EOMI, PERRL, vision unchanged Nose: Nares patent, No discharge Neck: Trach midline, no crepitus, no LAD detected, nodes soft, mobile and not tender Intra-oral: Intra-oral bony exposure lef t mandible 2x1.5cm, OPC, tongue/FOM/uvula/palate WNL TMJ: no Pain, no clicks Abdominal: NTND, +BS Neuro: Left V3 anesthesia Extremities: full ROM, 2+ pulses, no c/c/e Pulmonary: CTAB, No w/r/r Cardio: RRR Labs: [facility]abs[facility] BUN: 21 mg/dL (08/26/17) Hct: 33 % Low (08/26/17) Hgb: 10.7 g/dL Low (08/26/17) MCH: 31.6 pg High (08/26/17) MCHC: 32.5 g/dL (08/26/17) MCV: 97.2 fL High (08/26/17) MPV: 8.4 fL (08/26/17) Platelet: 357 K/CMM (08/26/17) RBC: 3.39 M/CMM Low (08/26/17) RDW: 14.3 % (08/26/17) WBC: 13.7 K/CMM High (08/26/17) Films: CT face showing pathological fracture le ft mandible with possible osteomylitis and retained dental root right maxilla. Assessment: 57 YOM with PMH of tardive dyskinesia an d substance abuse s/p I&D of left submandibular, submental, sublingual, pterygomandibular, submasseteric and temporal space infection, right submandibular space infection and extraction of teeth , presneted with increasing left mandibular swelling and exposed intra-orally. CT face showing pathological fracture left mandible with possible osteomylitis and retained dental root right maxilla. Plan: - Admit to OMFS - Consult hospitalist for medical management - To OR tomorrow for debridement and bon e biopsy/ culture and extraction of retained dental root right maxilla, consent obtained, in pt chart - NPO midnight - Please pg OMFS with any qs Signature: Shoshana Villegas DDS agricultural equipment sales engineer Attending Attestation I examined Mr. Moreno and agree with e resident assessment and plan. This patient developed a likely chronic osteomylitis of the left mandible after a severe odontogenic infection. He will require debridement, stabilization of the proxim al and distal mandibular segements, and culture, and biopsy of the left mandible under general anesthesia. In addition, a small abscess was noted associated with a retained maxillary root tip which will need to be extracted while the patient is under anesthesia. The risks, benefits, and alternatives we re discussed with the patient who demonstrated understanding and elected to proceed with the procedure. Samara Urrutia MD, DDS Signature Line Shoshana Salguero DDS Electronically Signed: 01/10/18 16:45 Co-Signed By: Branden Urrutia DDS, MD, SIMA GUPTA Extracted from:Title: OMFS PROGRESS NOTE 11/08/2017 [facility] Author: Fartun Hernandez NP Date: 10/23/17 OM[facility] Clinic Follow up note Date: 10/23/2017 Time: 1000 Faculty: Dr. Hank Pringle DDS, MD Provider: Nancy Hernandez RN, MS, KITCHEN HELP HANDYMAN-BC Reason for Visit: Evaluation of left bu ccal wound found postoperatively at the last visit HPI: A 57 year old male s/p incision and drainage of bilateral submandibular, sublingual, submental, left temporal space infection and extraction of all teeth.( 08/22/2017). And FNA of left masseteric mass, I&D of left masseteric abscess, d ebridement of exposed bone (10/03/2017). pathology reports reviewed with patient at last visit by Dr. Pringle (negative). Medications: Lyrica for tardive dykinesia Pain: 0/10 Vital signs: BP 121/88 P 77 R 18 Temp 97.6 Occlusion: edentulous ELYSE: > 40 mm Intraoral: Membranes pink well perfused Wounds: All extra-oral wounds well heale d. Open woound previously 10 mm by 10 mm of bone exposed is now 2 mm by 2 mm. Tissue over wound red, beefy, fibrinous. No signs of infection. healing slowly. Contour: normal Swelling: none Neuro: intact facial sensation and movements Assessment: A 57 year old male s/p inci renetta and drainage of bilateral submandibular, sublingual, submental, left temporal space infection and extraction of all teeth. and FNA of left masseteric mass, I&D of left masseteric abscess, debridem ent of exposed bone who is returning today for evaluation of his left buccal wound status. The wound is healing slowly. There is now 2 mm by 2 mm of expos ed wound. he was encouraged by Dr. Kusum crooks to continue same oral care. Eat healthy diet. To return in 2 weeks for re-examination. The patient is waiting for the go ahead to return to the dentist for dentures. Plan: Follow up: 2 weeks Maintain good oral care Continue to use Peridex Stop smoking to promote healing Eat good diet Nancy Hernandez RN, MS, KITCHEN HELP HANDYMAN-BC OMFS Extracted from:Title: History and Physical 08/28/2017 [facility] Author: Jone Spaulding MD Date: 08/26/17 Assessment/Plan Acute hypoxemic respiratory failure now resolved after agitation resolved and is extubated; n o pneumonia Polysubstance abuse encouraged cessation no uds done at admission Severe sepsis now resolved; continue treating the sublingual abscess Sublingual abscess s/p drainage, no further interventions planned changes unasyn to augmentin today Prophylaxis lovenox Disposition if remains clinically stable, hopefully home tomorrow Extracted from:Title: OMFS Progress Note Author: Jin Crawford Kevin DDS Date: 08/26/17 OMFS Progress Note: HD# 4 POD# 4, SP Incision and drainage o f bilateral neck infections and extraction of teeth 2, 3, 4, 6, 10, 11, 12, 14 16, 18, 19, 23, 24, 25, 26, 27, 28, 29, 31. S: AAO x 3, resting comfortably in bed. Feels better subjectively, pain well controlled. Vitals Tmp(F) Tmp(C) Ttype B P MAP Pulse RR SpO2 FIO2 ETCO2 08/26 11:59 98.5 36.94 axil 110/75 --- 65 18 97 --- --- 08/26 07:59 98.6 37.00 axil 102/70 --- 82 20 100 --- --- 08/26 04:45 ---- ---- ---- 1 --- 58 18 98 --- --- 08/26 03:00 ---- ---- ---- 1 78 57 18 100 --- --- 08/26 02:00 ---- ---- ---- 8 63 58 19 100 --- --- 24 Hr Tmax: 98.6F (37.00c) at 08/26 07:59 24 Hr Tmin: 97.5F (36.39c) at 08/25 13:0 Exam: General: AAO x 3, resting comfortably in bed Head: Lower third of face edema - decreased Ears: WNL Eyes: WNL Nose: Nares patent, No discharge Neck: Decreasedleft mandibular, bilatera l submental, sublingual swelling, - decreased since initial presentation. Drains removed. Intra-oral: wounds intact, clean and hem static, sutures intact. No signs of continued infection or delayed healing present, pt uncooperative with full oral examination TMJ: ELYSE 40 mm Abdominal: non-distended Neuro: WNL Extremeties: full ROM, Pulmonary: CTAB Cardio: RRR Labs: BUN: 21 mg/dL (08/26/17) Hct: 33 % Low (08/26/17) Hgb: 10.7 g/dL Low (08/26/17) MCH: 31.6 pg High (08/26/17) MCHC: 32.5 g/dL (08/26/17) MCV: 97.2 fL High (08/26/17) MPV: 8.4 fL (08/26/17) Platelet: 357 K/CMM (08/26/17) RBC: 3.39 M/CMM Low (08/26/17) RDW: 14.3 % (08/26/17) WBC: 13.7 K/CMM High (08/26/17) Assessment: Osvaldo is a 57 yo male who is 3 day s/p incision and drainage of deep neck spaces; extraction of all teeth. Pt following normal post op course. Lower b/l facial edema greatly decreased. No further treatment from [facility] [place], will sign o ff for now. OK for discharge from our standpoint, infection resolving. Plan: - Ok to DC from FS standpoint - Rec augmentin 875 BID x 10 days - Rec peridex mouthrinse swish and spit BID - Pain per primary - Will contunue to monitor cultures - Please have patient fu in OMFS clinic tues, call [phone] for apt Jin Crawford DDS [facility] PGY 3 Extracted from:Title: [facility] Consult Note Author: Lizandro Freedman MD Date: 08/22/17 Impression and Plan AP: 57yM with PMH of tardive dykinesia and a long history of painful carious dentition presents with left submandibular abscess. - OMFS rto manage this patient as this is an odontogenic inf ection. Lizandro Freedman M.D. [facility] PGY-2 TEACHING PHYSICIAN ATTESTATION Patient discussed with the residents. A gree with the documented findings, assessment and plan. Note reviewed and edited. FS is managing this odontogenic infection. Isabel Nick MD [place] [facility] #[id number] Plan of Care No Data Provided for This Section Social History Social History Date Source Social History TypeResponse 10/22/2018 [facility] Substance Abuse Use: Past. Type: Cocaine. Alcohol Current, Type Beer. Frequency: 1-2 times per week. Smoking Status Current every day smoker; Type: Cigarett es; Exposure to Tobacco Smoke None; Cigarette Smoking Last 365 Days Yes; Reg Smoking Cessation Counseling No; Tobacco use per day: 10; entered on: 11/14/18 Social History TypeResponse 10/09/2017 [facility] Substance Abuse Use: Past. Type: Cocaine. Alcohol Current, Type Beer. Frequency: 1-2 times per week. Smoking Status Current every day smoker; Exposure to To bacco Smoke None; Cigarette Smoking Last 365 Days Yes; Reg Smoking Cessation Counseling No entered on: 03/28/18 Family History No Data Provided for This Section Advance Directives No Data Provided for This Section Functional Status No Data Provided for This Section
--- OUTSIDE RECORDS SUMMARY | 2020-09-10 08:32 | XMS REPORT | Summary of Care ---
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 Start : 16-Apr-2018 Active Amoxicillin-Pot Clavulanate 875-125 MG Oral Tablet TAKE 1 TABLET TWICE DAILY Quantity: 60 Refills: 1 DENA GANT M.D. Start : 16-Apr-2018 Active Allergies and Adverse Reactions Name Dates Details Wellbutrin (Allergy) Status: Active Procedures Procedure Dates Details Procedures not documented Immunization Name Dates Details Immunizations not documented Social History Name Dates Details Tobacco smoking consumption unknown (finding) Vital Signs Date Test Result Details No Known Vitals to report Results Date Description Value Details Results not documented Plan of Care Name Dates Details Planned Observations Planned Goals not documented Interventions Provided Medication ChangesAmoxicillin-Pot Clavulanate 875-125 MG Oral Tablet - Renew Instructions Name Dates Details Instructions not documented Encounters Appointment; DENA GANT M.D. On: 16-Jul-2018 10:0 0 Encounter Diagnosis: Problem not documented
--- OUTSIDE RECORDS SUMMARY | 2020-09-10 08:32 | XMS REPORT | Summary of Care ---
:1960 Author Name STALIN King Address [facility] Unavailable , Care Team Providers Name Role [...] TAKE 1 TABLET 3 TIMES DAILY Quantity: 240 Refills: 2 DENA GANT M.D. Start : 16-Apr-2018 Active Amoxicillin-Pot Clavulanate 875-125 MG Oral Tablet TAKE 1 TABLET TWICE DAILY Quantity: 180 Refills: 2 DENA GANT M.D. Start : 16-Apr-2018 Active [...] Clavulanate 875-125 MG Oral Tablet - Renew metroNIDAZOLE 500 MG Oral Tablet - Renew Instructions Name Dates Details Instructions not documented Encounters No Encounter data documented On: 20-Jul-2020 Encounter Diagnosis: Problem not documented
--- OUTSIDE RECORDS SUMMARY | 2020-09-10 08:32 | XMS REPORT | Continuity of Care Document ---
:1960 Author Organization [facility] t Address [address] [place] [address] Care Team Providers Name Role Phone Asked, Pcp Primary Care Physician Unavailable Shaneka Childress Attending Clinician STALIN Attending Clinician Unavailable Richard Germain Attending Clinician Samara Spaulding Attending Clinician Shaneka hCildress Admitting Clinician Jerry Admitting Clinician Problems Condition Condition Condition Status Onset Resolution Last Treating Co mments Source Name Details Category Date Date Treatment Clinician Date OTHER Diagnosis Active [id number] Mem oria CHRONIC 1-12 07:42:00 l OSTEOMYELI OTHER 00:00: Jessica nn TIS, OTHER CHRONIC 00 SITE OSTEOMYELI TIS, OTHER SITE Active 09/30/2018 [facility] FOLLOW Diagnosis Active [id number] Mem oria VISIT 0- 09:04:00 l FOLLOW 00:00: Chan VISIT 00 Active 09/13/2018 [facility] FOLLOW UP Diagnosis Active 2018-11-05 Memoria 3-05 10:02:00 l FOLLOW 00:00: [place] UP 00 Active 8 [facility] OSTEOMYEKI Diagnosis Active 2018-02-18 Memoria TIS 2- 21:50:00 l 00:00: Chan OSTEOMYEKI 00 TIS Active 01/10/2018 [facility] SDF Diagnosis Active 2018-01-10 Mem oria 2- 11:34:00 l SDF 00:00: Chan 00 Active 01/10/2018 [facility] TOOTH Diagnosis Active 2017-12-25 Mem oria ABSCESS 2-06 21:29:00 l TOOTH 00:00: Chan ABSCESS 00 Active 12/25/2017 [facility] LEFT Diagnosis Active [id number] Mem oria FACIAL 1-08 10:27:00 l MASS LEFT 00:00: Chan SWELLING FACIAL 00 MASS SWELLING Active 09/26/2017 [facility] F/U Diagnosis Active 2016-112017-12-27 Mem oria 0-13 09:51:00 l F/U 00:00: [place] 00 Active 08/31/2017 [facility] DENTAL Diagnosis Active 2016-112018-01-17 Mem oria ABSCESS 0-04 10:28:00 l DENTAL 00:00: Chan ABSCESS 00 Active 08/22/2017 [facility] LT Diagnosis Active 2016-112017-09-05 Mem oria SUBLINGUAL 0-04 09:57:00 l ABSCESS LT 00:00: Chan SUBLINGUAL 00 ABSCESS Active 08/22/2017 [facility] Osteomyeli Osteomyeli Problem Active U nivers tis, jaw tis, jaw ity of chronic chronic [place] [facility] Other Problem 2019-06-17 Memor ia specified 11:03:27 l postproced Other Jessica nn ural specified states postproced ural states 06/17/2019 [facility] Personal Problem 2018-12-19 Mem oria history of 12:06:45 l nicotine Personal Herm mary dependence history of nicotine dependence 12/19/2018 [facility] Fracture Problem 2019-01-22 Mem oria of ramus 12:03:31 l of left Fracture Jessica nn mandible, of ramus subsequent of left encounter mandible, for subsequent fracture encounter with for nonunion fracture with nonunion 01/22/2019 [facility] Nicotine Problem 2019-06-17 Mem oria dependence 11:03:27 l , Nicotine Rob n cigarettes dependence , , uncomplica cigarettes edmond , uncomplica edmond 06/17/2019 [facility] Osteomyeli Problem 2019-06-17 M emoria tis, 11:03:27 l unspecifie Rob n d Osteomyeli tis, unspecifie d 06/17/2019 [facility] Pathologic Problem 2018-04-26 M emoria al 12:12:21 l fracture [place] in other Pathologic disease, al other fracture site, in other initial disease, encounter other for site, fracture initial encounter for fracture 04/26/2018 [facility] Moderate Problem 2018-04-26 Mem oria protein-ca 12:12:21 l santos Moderate Rob n malnutriti protein-ca on santos malnutriti on 04/26/2018 [facility] Cellulitis Problem 2018-04-26 M emoria and 12:12:21 l abscess of Rob n mouth Cellulitis and abscess of mouth 04/26/2018 [facility] Body mass Problem 2018-04-26 Me moria index 12:12:21 l (BMI) 19 Body [place] or less, mass index adult (BMI) 19 or less, adult 04/26/2018 [facility] Retained Problem 2018-04-26 Mem oria dental 12:12:21 l root Retained Rob n dental root 8 [facility] Cocaine Problem 2018-04-26 William jon abuse, 12:12:21 l uncomplica Cocaine Her foreman [place]mond abuse, uncomplica edmond 04/26/2018 [facility] Other long Problem 2019-06-17 M emoria term 11:03:27 l (current) Other Rob n drug [facility] therapy (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 therapy 06/17/2019 [facility] Malignant Problem Resolve 2019-06-17 M emoria neoplasm d 11:03:27 l of skin Chan (disorder) Malignant neoplasm of skin (disorder) Resolved Problem 06/17/2019 not active, all lesions removed [facility] Dieter Problem Resolve 2019-06-17 William jon Mountain d 11:03:27 l spotted Dieter [place] fever [place] (disorder) spotted fever (disorder) Resolved Problem 06/17/2019 when pt was 11 [facility] Tardive Problem Resolve 2019-06-17 Mem oria dyskinesia d 11:03:27 l (disorder) Tardive Her foreman dyskinesia (disorder) Resolved Problem 06/17/2019 [facility] CELLULITIS Diagnosis Active 2017-09-05 Memoria AND 09:57:00 l ABSCESS OF Rob n MOUTH CELLULITIS AND ABSCESS OF MOUTH Active [facility] OSTEOMYELI Diagnosis Active 2018-02-18 Memoria TIS OF 21:50:00 l UNSPECIFIE Rob n D ORBIT OSTEOMYELI TIS OF UNSPECIFIE D ORBIT Active [facility] ILLNESS, Diagnosis Active 2018-01-10 M emoria UNSPECIFIE 11:34:00 l D ILLNESS, Rob n UNSPECIFIE D Active [facility] Pathologic Problem 2019-06-17 2019-06-17 Memoria al 1-15 11:03:27 11:03:27 l fracture, 04:30: Chan other Pathologic 58 site, al initial fracture, encounter other for site, fracture initial encounter for fracture 9 06/17/2019 [facility] Encounter Problem 2017-112019-05-13 2019-05-13 Memoria for - 11:09:43 11:09:43 l removal of 04:05: Rob crooks internal Encounter 60 fixation for device removal of internal fixation device 10/31/2018 05/13/2019 [facility] Other Problem 2019-01-22 2019-01-22 M emoria acute 07-13 12:03:31 12:03:31 l osteomyeli Other 03:33: Jessica nn tis, other acute 32 site osteomyeli tis, other site 07/13/2018 01/22/2019 [facility] Allergies, Adverse Reactions, Alerts Allergy Allergy Status Severity Reaction(s) Onset Inactive Treating Comm ents Source Name Type Date Date Clinician Bupropio Propensi Active [place] Hcl ty to 06-25 Methodi adverse 00:00: st reaction 00 s to drug Wellbutr Allergy Active [facility] in to drug ity of ([facility] ) Physici ans Wellbutr Wellbutr Active Memori a in in l Chan Family History Family Member Diagnosis Comments Start Date Stop Date Source Natural father Lung cancer [facility] ethodist Natural mother Heart disease [place] Confucianist Natural mother Hypertension [place] Confucianist Social History Social Habit Start Date Stop Date Quantity Comments Source History of Chews Tobacco [place] tobacco use Confucianist Sex Assigned At [place] Confucianist Tobacco use and 2017-11-27 2017-11-27 Current user [place] exposure 00:00:00 00:00:00 Confucianist Alcohol intake 2017-11-27 2017-11-27 Current drinker of [employer] 00:00:00 00:00:00 alcohol (finding) Methodi st Social History 2017-10-09 2017-10-09 [facility] ermann 15:34:20 15:34:20 Alcohol Comment 2017-04-08 2017-04-08 occassionally [place] 00:00:00 00:00:00 Confucianist Smoking Status Start Date Stop Date Source Current every day smoker 2017-11-27 00:00:00 Shaneka yan Confucianist Medications Ordered Filled Start Stop Current Ordering Indication Dosage Frequency Signature Comments Components Source Medication Medication Date Date Medication? Clinician (SIG) Name Name midazolam 2017-11 No Route: IV, Me moria (ANES) 2-05 Drug form: l 20:00: SOLN, Chan 00 ONCE, Stop date: 10/23/18 14:00:00 [employer] chlorhexidi 2017-11 Yes 0.018 gm = Memoria ne 2-05 15 mL, PO, l gluconate 19:53: BID, swish He rmann 1.2 MG/ML 00 and spit; Mouthwash do not [Peridex] swallow, # 480 mL, 0 Refill(s) tramadol 2017-11 No 50 mg = 1 William jon hydrochlori 2-05 tab, PO, l de 50 MG 19:53: Q4H, # 24 Herm mary Oral Tablet 00 tab, 0 Refill(s) ibuprofen 2017-11 No 800 mg = 1 Me moria 800 mg oral 2-05 tab, PO, l tablet 19:53: Q8H, PRN Chan 00 Pain, Take with food, # 30 tab, 0 Refill(s) Acetaminoph 2017-11 No 500 mg = 1 Memoria en 500 MG 2-05 tab, PO, l Oral Tablet 19:53: Q4H, PRN He rmann [Tylenol] 00 Pain, X 10 day, # 60 tab, 0 Refill(s) Naloxone 2017-11 No Notes: Memoria 2-05 Same as l 19:49: Narcan Chan 00 Flumazenil 2017-11 No Notes: Memor ia 2-05 (Same as: l 19:49: Romazicon) [place] 00 Acetaminoph 2017-11 No Notes: Max Memoria en 2-05 acetaminop l 19:49: hen 4000 Chan 00 mg/day (4 gm/day). (Same as: Tylenol Extra Strength) Ketorolac 2017-11 No 4 days Memor ia 2-05 l 19:49: MEDICATION WASTE Product Size: 30 mg Product Wasted: _0__ mg Fentanyl 2017-11 No Notes: Memoria 2-05 (Same as: l 19:49: Sublimaze) Preservat david free. Hydromorpho 2017-11 No Notes: William jon ne 2-05 Same as l 19:49: Dilaudid Oxycodone 2017-11 No Notes: Memori a 2-05 (Same as: l 19:49: 'Roxicodon e) Dexamethaso 2017-11 No Notes: William jon ne 2-05 Concentrat l 19:49: ion: 4mg/ml Ondansetron 2017-11 No Notes: William jon 2-05 (Same as: l 19:49: Zofran) MEDICATION WASTE Product Size: 4 mg Product Wasted: __0_ mg Calcium 2017-11 No 1,000 mL, Memor ia Chloride 2-05 Rate: 125 l 0.0014 19:49: ml/hr, MEQ/ML / 00 Infuse Potassium over: 8 Chloride hr, Route: 0.004 IV, Dosing MEQ/ML / Weight Sodium 68.182 kg, Chloride Total 0.103 Volume: MEQ/ML / 1,000, Sodium Start Lactate date: 0.028 10/23/18 MEQ/ML 13:49:00 Injectable [employer], Solution Duration: 30 day, Stop date: 11/22/18 13:48:00 [employer], 1.87, m2 hydromorpho 2017-11 No Route: IV, Memoria ne (ANES) 2-05 Drug form: l 19:45: INJ, ONCE, Stop date: 10/23/18 13:45:00 [employer] dexamethaso 2017-11 No Route: IV, Memoria ne (ANES) 2-05 Drug form: l 19:45: INJ, ONCE, Stop date: 10/23/18 13:45:00 [employer] ondansetron 2017-11 No Route: IV, Memoria (ANES) 2-05 Drug form: l 19:45: INJ, ONCE, Stop date: 10/23/18 13:45:00 [employer] phenylephri 2017-11 No Route: IV, Memoria ne (ANES) 2- Drug form: l 19:20: INJ, ONCE, Stop date: 10/23/18 13:20:00 [employer] Isolyte S 2017-11 No Route: IV, Me moria PH 7.4 2-05 Total l (ANES) 500 19:16: Volume: Herm mary mL 00 500, Start date: 10/23/18 13:16:00 [employer], Stop date: 10/23/18 14:16:00 [employer] acetaminoph 2017-11 No Route: IV, Memoria en (ANES) 2-05 Drug form: l 10 mg 19:10: INJ, Start Rob n date: 10/23/18 13:10:00 [employer], Stop date: 10/23/18 14:10:00 [employer] ePHEDrine 2017-11 No Route: IV, Me moria (ANES) 2-05 Drug form: l 19:05: INJ, ONCE, Stop date: 10/23/18 13:05:00 [employer] ceFAZolin 2017-11 No Route: IV, Me moria (ANES) 2-05 Drug form: l 18:55: INJ, ONCE, Stop date: 10/23/18 12:55:00 [employer] fentaNYL 2017-11 No Route: IV, Mem oria (ANES) 2-05 Drug form: l 18:46: INJ, ONCE, Stop date: 10/23/18 12:46:00 [employer] succinylcho 2017-11 No Route: IV, Memoria line (ANES) 2-05 Drug form: l 18:46: INJ, ONCE, Stop date: 10/23/18 12:46:00 [employer] propofol 2017-11 No Route: IV, Mem oria (ANES) 2-05 Drug form: l 18:46: INJ, ONCE, Stop date: 10/23/18 12:46:00 [employer] lidocaine 2017-11 No Route: IV, Me moria (ANES) 2-05 Drug form: l 18:45: INJ, ONCE, Stop date: 10/23/18 12:45:00 [employer] Lactated 2017-11 No Route: IV, Mem oria Ringers 2-05 Total l Injection 18:02: Volume: Jessica nn IV (ANES) 00 1,000, 1000 mL Start date: 10/23/18 12:02:00 [employer], Stop date: 10/23/18 13:02:00 [employer] ceFAZolin + 2017-11 No Notes: William jon sterile 2-05 (Same As: l water 20 mL 05:00: Ancef, Herm mary 00 Kefzol) MEDICATION WASTE Product Size: 1000 mg Product Wasted: ___ mg Metronidazo 2017-11 Yes 500 mg = 1 Memoria le 500 MG 2-04 tab, PO, l Oral Tablet 14:38: TID, 0 Herm mary [Flagyl] 00 Refill(s) Amoxicillin 2017-11 Yes PO, BID, 0 Memoria 2-04 Refill(s) l 14:37: Chan 00 Amoxicillin Amoxicillin Yes DENA 1 Q0.5D TAKE 1 Univers -Pot -Pot 5-29 OSTROSKY TABLET ity of Clavulanate Clavulanate 00:00: M.D. TWICE [place] 875-125 MG 875-125 MG 00 DAILY Ph ysici Oral Tablet Oral Tablet a ns metroNIDAZO metroNIDAZO Yes DENA 1 Q0.3333D TAKE 1 Univers LE 500 MG LE 500 MG 5-29 OSTROSKY TABLET 3 ity of Oral Tablet Oral Tablet 00:00: M.D. TIMES [place] 00 DAILY Physici ans Amoxicillin No See Memori a 875 MG / 3-02 Instructio l Clavulanate 14:35: ns, 1 tab H ermann 125 MG Oral 00 PO Q12H Tablet one month, [Augmentin # 60 tab, 875-mg] 0 Refill(s), Pharmacy: [facility] [id number] ibuprofen No 600 mg = 1 Me moria 600 mg oral 3-02 tab, PO, l tablet 14:35: Q6H, PRN [place] 00 Pain or Fever, Take with food, X 10 day, # 40 tab, 0 Refill(s), Pharmacy: [facility] [id number] chlorhexidi Yes 0.018 gm = Memoria ne 3-02 15 mL, PO, l gluconate 14:35: BID, swish He rmann 1.2 MG/ML 00 and spit; Mouthwash do not [Peridex] swallow, # 480 mL, 0 Refill(s), Pharmacy: [facility] [id number] Benadryl No Notes: Memoria 3-02 (Same as: l 04:26: Benadryl) [place] 00 Amoxicillin No Notes: William jon 875 MG / 01-18 With food. l Clavulanate 03:00: (Same as: H ermann 125 MG Oral 00 Augmentin Tablet 875) [Augmentin 875-mg] Alprazolam No Notes: Memor ia 0.5 MG Oral 01-17 With food l Tablet 16:07: or milk [place] [Xanax] 00 (Same as: Xanax) Triazolam No 0.25 mg, William jon 01-17 Route: PO, l 15:26: Drug form: Chan 00 TAB, ONCE, Dosing Weight 68.182, kg, PRN Agitation, Start date: 01/17/18 9:26:00 [employer] Benadryl No Notes: Memoria 3- (Same as: l 15:26: Benadryl) Chan 00 12 HR No Notes: Memoria Clonidine 2-28 (Same As: l Hydrochlori 15:00: Catapres) H ermann de 0.1 MG 00 Extended Release Tablet Ativan No Notes: Memoria 2-28 (Same as: l 13:08: Ativan) [place] 00 Flagyl No Notes: Memoria 2-27 (Same as: l 22:00: Flagyl) Avoid alcohol. Rocephin No Notes: Memoria 2-27 (Same As: l 20:00: Rocephin). Use with 100 mL NS and infuse over 30 min MEDICATION WASTE Product Size: 2000 mg Product Wasted: ___ mg Vancomycin No 2001 mg: Me moria 2-27 infuse l 20:00: over 2.5 [place] 00 hours For adult patients only: Round to nearest 250 mg per Medical Staff approval MEDICATION WASTE Product Size: 1000 mg Product Wasted: ___ mg Ativan No Notes: Memoria 2-27 (Same as: l 13:43: Ativan) [place] Ativan No Notes: Memoria 2-25 (Same as: l 14:41: Ativan) [place] 00 Lidocaine No Notes: Memori a 25 MG/ML / 2-25 Apply to l Prilocaine 12:36: desired Herm mary 25 MG/ML 00 area 2 hrs Topical prior to Cream needle [EMLA] insertion. (Same as: Emla) Pain Ease No 1 spray, William jon topical 2-25 Route: l spray 11:59: TOP, Chan 00 Dosing Weight 68.182, kg, ONCE, Start date: 01/13/18 5:59:00 [employer], Stop date: 01/13/18 5:59:00 [employer] Amicar No 4 gm, Memoria 2-24 Route: l 22:00: S&SPIT, Q8H, Dosing Weight 68.182, kg, Start date: 01/12/18 16:00:00 [employer], Duration: 30 day, Stop date: 02/11/18 8:00:00 CDT Tranexamic No Tranexamic M emoria acid 50mg 2-24 acid 50mg l /ml oral 18:00: /ml oral Jessica nn solution 00 solution, 10 mL, Drug form: MISC, Route: S&SPIT, Q8H, 01/12/18 12:00:00 [employer], Stop date: 02/11/18 4:00:00 CDT Unasyn No Notes: Memoria 2-24 Dosing l 06:00: based on Ampicillin component (Same as: Unasyn) Nicotine No Notes: Memoria 2-24 (Same as: l 00:00: Habitrol) "Remove old patch before applicatio n of new patch" WASTE: F/P - P Waste Black; E - P Waste Black chlorhexidi No Notes: William jon ne -23 (Same As: l gluconate 23:00: Peridex) Herm mary 1.2 MG/ML 00 Mouthwash [Peridex] Beneprotein No Notes: William jon 7 gm pkt 2-23 (Same as: l 23:00: Beneprotei 00 n) Ibuprofen No Notes: Memori a 2-23 (Same as: l 22:00: Motrin) "Do Not Crush" Take with food. Lovenox No Notes: Memoria 2-23 (Same as: l 21:00: Lovenox) Unasyn No Notes: Memoria 2-23 Dosing l 21:00: based on Ampicillin component (Same as: Unasyn) Ondansetron No Notes: William jon 2-23 (Same as: l 20:54: Zofran) MEDICATION WASTE Product Size: 4 mg Product Wasted: ___ mg Benadryl No Notes: Memoria 2-23 (Same as: l 20:54: Benadryl) clonazePAM Yes 0.5 mg = 1 M emoria 0.5 mg oral 2-23 tab, PO, l tablet 19:24: TID, # 90 Rob n 00 tab, 0 Refill(s) tizanidine Yes 6 mg = 1 Mem oria 6 mg oral 2-23 cap, PO, l capsule 19:24: TID, 0 [place] 00 Refill(s) pregabalin Yes 100 mg = 2 M emoria 50 MG Oral 2-23 cap, PO, l Capsule 19:24: Daily, 0 Rob n [Lyrica] 00 Refill(s) Tylenol No Notes: Max William jon 2-23 acetaminop l 18:00: hen 4000 Chan 00 mg/day (4 gm/day). (Same as: Tylenol Extra Strength) Morphine No Notes: Memoria 2-23 (Same l 17:38: as:MORPhin e Sulfate) albuterol No Route: Memori a (ANES) 2-23 INHALATION l 16:29: , Drug form: AERO/A, ONCE, Stop date: 01/11/18 10:29:00 [employer] ondansetron No Route: IV, Memoria (ANES) 2-23 Drug form: l 16:21: INJ, ONCE, Stop date: 01/11/18 10:21:00 [employer] acetaminoph No Route: IV, Memoria en (ANES) 2- Drug form: l 10 mg 15:38: INJ, Start Rob date: 01/11/18 9:38:00 [employer], Stop date: 01/11/18 10:38:00 [employer] ceFAZolin No Route: IV, Me moria (ANES) 2- Drug form: l 15:21: INJ, ONCE, Stop date: 01/11/18 9:21:00 [employer] Flumazenil No Notes: Memor ia - (Same as: l 15:21: Romazicon) Morphine No Notes: Memoria 2-23 (Same l 15:21: as:MORPhin e Sulfate) Oxycodone No Notes: Memori a - (Same as: l 15:21: Roxicodone ) Ondansetron No Notes: William jon -23 (Same as: l 15:21: Zofran) MEDICATION WASTE Product Size: 4 mg Product Wasted: ___ mg Naloxone No Notes: Memoria 2-23 (Same as: l 15:21: Narcan) dexmedetomi No Route: IV, Memoria dine (ANES) 2- Drug form: l 15:07: INJ, ONCE, Stop date: 01/11/18 9:07:00 [employer] dexamethaso No Route: IV, Memoria ne (ANES) 2-23 Drug form: l 14:51: INJ, ONCE, Stop date: 01/11/18 8:51:00 [employer] famotidine No Route: IV, M emoria (ANES) 2-23 Drug form: l 14:45: INJ, ONCE, Stop date: 01/11/18 8:45:00 [employer] hydromorpho No Route: IV, Memoria ne (ANES) 2-23 Drug form: l 14:40: INJ, ONCE, Stop date: 01/11/18 8:40:00 [employer] rocuronium 2017- No Route: IV, Mandi emoria (ANES) 2-23 Drug form: l 14:40: INJ, ONCE, Stop date: 01/11/18 8:40:00 [employer] fentaNYL 2017- No Route: IV, Mem oria (ANES) 2-23 Drug form: l 14:40: INJ, ONCE, Stop date: 01/11/18 8:40:00 [employer] midazolam 2017- No Route: IV, Me moria (ANES) 2-23 Drug form: l 14:40: SOLN, 00 ONCE, Stop date: 01/11/18 8:40:00 [employer] lidocaine 2017- No Route: IV, Me moria (ANES) 2-23 Drug form: l 14:40: INJ, ONCE, Stop date: 01/11/18 8:40:00 [employer] propofol 2017- No Route: IV, Mem oria (ANES) 2-23 Drug form: l 14:40: INJ, ONCE, Stop date: 01/11/18 8:40:00 [employer] Lactated No Route: IV, Mem oria Ringers 2-23 Total l Injection 13:32: Volume: Jessica nn IV (ANES) 00 1,000, 1000 mL Start date: 01/11/18 7:32:00 [employer], Stop date: 01/11/18 8:32:00 [employer] Diphenhydra No Notes: William jon mine - (Same as: l 03:11: Benadryl) Tylenol No Notes: Memoria 2-23 Infuse l 00:00: over 15 minutes Do not exceed 4gm/day of acetaminop hen MEDICATION WASTE Product Size: 1000 mg Product Wasted: ___ mg Lyrica No Notes: Memoria 2-22 Same as l 22:00: Lyrica INGREZZA 80 Yes Take 1 [place] mg capsule 1-17 capsule by Met rodriguez 00:00: mouth once st daily as directed by physician. abobotulinu Yes Isolated 500U Enio lin mtoxinA 09 oromandibul Metho di (DYSPORT) 15:00: ar dystonia s t injection 00 500 Units vitamin E Yes 1000U Q.5D Take 1,000 [place] 1000 UNIT 09 Units by Method i capsule 14:19: mouth 2 st 43 (two) times a day. PREGABALIN Yes QD Take by [place] (LYRICA 11-27 mouth Methodi ORAL) 14:19: daily. st 43 Amoxicillin 2016-11 Yes 875 mg = 1 Memoria 875 MG / 1-15 tab, PO, l Clavulanate 15:54: Q12H, X 7 H ermann 125 MG Oral 00 day, # 14 Tablet tab, 0 [Augmentin Refill(s), 875-mg] [facility] [id number] Motrin 600 2016-11 Yes 600 mg = 1 M emoria mg oral 1-15 tab, PO, l tablet 15:39: Q6H, PRN Chan 00 Pain, take with food, # 30 tab, 0 Refill(s), [facility] [id number] tramadol 2016-11 Yes 50 mg = 1 William jon hydrochlori 1-15 tab, PO, l de 50 MG 15:39: Q4H, PRN Jessica nn Oral Tablet 00 Pain, X 10 day, # 30 tab, 0 Refill(s) Acetaminoph 2016-11 Yes 1,000 mg = Memoria en 500 MG 1-15 2 tab, PO, l Oral Tablet 15:39: BID, PRN rmann [Tylenol] 00 Pain, X 10 day, # 50 tab, 0 Refill(s), [facility] [id number] chlorhexidi 2016-11 Yes 0.018 gm = Memoria ne 1-15 15 mL, PO, l gluconate 15:39: BID, swish He rmann 1.2 MG/ML 00 and spit; Mouthwash do not [Peridex] swallow, # 480 mL, 0 Refill(s), [facility] [id number] neostigmine 2016-11 No Route: IV, Memoria (ANES) 15 Drug form: l 15:18: INJ, ONCE, Chan 00 Stop date: 10/03/17 9:18:00 [employer] glycopyrrol 2016-11 No Route: IV, Memoria ate (ANES) -15 Drug form: l 15:18: INJ, ONCE, Stop date: 10/03/17 9:18:00 [employer] dexmedetomi 2016-11 No Route: IV, Memoria dine (ANES) 1-15 Drug form: l 15:06: INJ, ONCE, Stop date: 10/03/17 9:06:00 [employer] ondansetron 2016-11 No Route: IV, Memoria (ANES) 1-15 Drug form: l 15:06: INJ, ONCE, Stop date: 10/03/17 9:06:00 [employer] ceFAZolin 2016-11 No Route: IV, Me moria (ANES) 1-15 Drug form: l 15:04: INJ, ONCE, Stop date: 10/03/17 9:04:00 [employer] rocuronium 2016-11 No Route: IV, M emoria (ANES) -15 Drug form: l 14:29: INJ, ONCE, Stop date: 10/03/17 8:29:00 [employer] propofol 2016-11 No Route: IV, Mem oria (ANES) 1-15 Drug form: l 14:29: INJ, ONCE, Stop date: 10/03/17 8:29:00 [employer] dexamethaso 2016-11 No Route: IV, Memoria ne (ANES) -15 Drug form: l 14:29: INJ, ONCE, Stop date: 10/03/17 8:29:00 [employer] fentaNYL 2016-11 No Route: IV, Mem oria (ANES) 1-15 Drug form: l 14:29: INJ, ONCE, Stop date: 10/03/17 8:29:00 [employer] midazolam 2016-11 No Route: IV, Me moria (ANES) 1-15 Drug form: l 14:29: SOLN, [place] 00 ONCE, Stop date: 10/03/17 8:29:00 [employer] lidocaine 2016-11 No Route: IV, Me moria (ANES) 1-15 Drug form: l 14:29: INJ, ONCE, Chan 00 Stop date: 10/03/17 8:29:00 [employer] acetaminoph 2016-11 No Route: IV, Memoria en (ANES) -15 Drug form: l 10 mg 14:25: INJ, Start Rob n 00 date: 10/03/17 8:25:00 [employer], Stop date: 10/03/17 9:25:00 [employer] Lactated 2016-11 No Route: IV, Mem oria Ringers 1-15 Total l Injection 13:34: Volume: Jessica nn IV (ANES) 00 1,000, 1000 mL Start date: 10/03/17 7:34:00 [employer], Stop date: 10/03/17 8:34:00 [employer] gabapentin 2016-11 Yes 300 mg = 1 M emoria 300 MG Oral 0-09 cap, PO, l Capsule 21:33: Q8H, # 30 Jessica nn 00 cap, 0 Refill(s), called to pharmacy ibuprofen 2016-11 Yes 800 mg = 1 Me moria 800 mg oral 0-09 tab, PO, l tablet 21:33: Q8H, PRN [place] 00 Fever or Pain, Take with food, X 10 day, # 30 tab, 0 Refill(s), called to pharmacy chlorhexidi 2016-11 Yes 0.018 gm = Memoria ne 0-09 15 mL, l gluconate 21:33: Swab [place] 1.2 MG/ML 00 Mouth, Mouthwash Q12H, # 420 mL, 0 Refill(s), called to pharmacy Amoxicillin 2016-11 Yes 1 tab, PO, Memoria 875 MG / 0-09 Q12H, X 10 l Clavulanate 21:33: day, # 20 H ermann 125 MG Oral 00 tab, 0 Tablet Refill(s), [Augmentin called to 875-mg] pharmacy tramadol 2016-11 Yes 100 mg = 2 Mem oria hydrochlori 0-09 tab, PO, l de 50 MG 21:33: Q6H, PRN Jessica nn Oral Tablet 00 Pain Score 7-10, X 7 day, # 50 tab, 0 Refill(s), given to patient Folic Acid 2016-11 Yes 1 mg = 1 Mem oria 1 MG Oral 0-09 tab, NG, l Tablet 21:33: Daily, # Chan 00 14 tab, 0 Refill(s), called to pharmacy acetaminoph 2016-11 Yes 1,000 mg = Memoria en 500 mg 0-09 2 tab, PO, l oral tablet 21:33: Q6H, X 10 H ermann day, # 80 tab, 0 Refill(s), called to pharmacy thiamine 2016-11 Yes 200 mg = 2 Mem oria 100 mg oral 0-09 tab, NG, l tablet 21:33: Daily, X [place] 00 14 day, # 28 tab, 0 Refill(s), called to pharmacy Clonidine 2016-11 Yes 0.1 mg = 1 Me moria Hydrochlori 0-09 tab, PO, l de 0.1 MG 21:33: QID, # 56 Her foreman Oral Tablet 00 tab, 0 Refill(s), called to pharmacy Clonidine 2016-11 No Notes: Memori a Hydrochlori 0-09 (Same As: l de 0.1 MG 13:41: Catapres) Her foreman Oral Tablet 00 Amoxicillin 2016-11 No Notes: William ojn 875 MG / 0-09 With food. l Clavulanate 02:00: (Same as: H ermann 125 MG Oral 00 Augmentin Tablet 875) [Augmentin 875-mg] olanzapine 2016-11 No Notes: Memor ia 0-09 (Same as: l 02:00: ZyPREXA) Seroquel 2016-11 No Notes: Memoria 0-08 (Same as: l 03:05: SEROquel) Naprosyn 2016-11 No Notes: Memoria 0-08 (Same as: l 02:00: Naprosyn) Take with food. gabapentin 2016-11 No Notes: Memor ia 300 MG Oral 0-07 (Same as: l Capsule 21:00: Neurontin) Tetrahydroc 2016-11 No Notes: William jon annabinol 0-07 (Same as: l 15:02: Marinol) Non-Formul meliton Drug. Dexmedetomi 2016-11 No 24 hours M emoria dine 0-06 l 17:36: [place] 00 Thiamine 2016-11 No 200 mg, Memori a 0-06 Route: IV, l 14:00: Daily, Dosing Weight 67.273, kg, Start date: 08/24/17 9:00:00 CDT, Duration: 30 day, Stop date: 09/22/17 9:00:00 CDT Famotidine 2016-11 No Notes: Memor ia 20 MG Oral 0-06 (Same as: l Tablet 14:00: Pepcid) Chan 00 Vitamin B 2016-11 No Notes: Memori a 12 0-06 (Same As: l 14:00: Vitamin Chan 00 B12) sterile 2016-11 No 1.2 mL, Memoria water 0-06 Route: l 13:24: MISC, Drug [place] 00 Form: INJ, Q2H, PRN See Nurse's Notes, Start date: 08/24/17 8:24:00 CDT, Duration: 30 day, Stop date: 09/23/17 8:23:00 [employer] pregabalin 2016-11 No Notes: Memor ia 0-06 (Same as: l 13:00: Lyrica) Chan 00 Geodon 2016-11 No Notes: Memoria 0-06 Reconstitu l 11:53: te with 1.2 ml of sterile water. Final concentrat ion = 20 mg/1ml. Maximum 40 mg/24 hours (Same As: Geodon). MEDICATION WASTE Product Size: 20 mg Product Wasted: ___ mg Acetaminoph 2016-11 No Notes: Max Memoria en 0-06 acetaminop l 11:00: hen 4000 Chan 00 mg/day (4 gm/day). (Same as: Tylenol Extra Strength) Baclofen 2016-11 No Notes: Memoria 0-06 (Same As: l 02:00: Lioresal) [place] 00 Docusate 2016-11 No 100 mg, Memori a 0-06 Route: PO, l 02:00: Drug form: Chan 00 CAP, Q12H, Dosing Weight 67.273, kg, Start date: 08/23/17 21:00:00 CDT, Duration: 30 day, Stop date: 09/22/17 9:00:00 CDT Mirtazapine 2016-11 No Notes: William jon 0-06 (Same l 02:00: as:Remeron [place] 00 ) olanzapine 2016-11 No 10 mg, Memor ia 0-06 Route: SL, l 02:00: Drug form: Chan 00 TABDIS, Bedtime, Dosing Weight 67.273, kg, Start date: 08/23/17 21:00:00 CDT, Duration: 30 day, Stop date: 09/21/17 21:00:00 CDT docusate 2016-11 No Notes: Memoria 0-06 (Same as: l 02:00: Colace) Reglan 2016-11 No Notes: Memoria 0-06 (Same as: l 01:00: Reglan) [place] 00 Geodon 2016-11 No Notes: Memoria 0-05 Reconstitu l 21:45: te with 1.2 ml of sterile water. Final concentrat ion = 20 mg/1ml. Maximum 40 mg/24 hours (Same As: Geodon). MEDICATION WASTE Product Size: 20 mg Product Wasted: ___ mg pregabalin 2016-11 No Notes: Memor ia 0-05 Same as l 21:00: Lyrica Enoxaparin 2016-11 No Notes: Memor ia 0-05 (Same as: l 21:00: Lovenox) PHOS-NaK 2016-11 No Notes: Memoria 0-05 (Same as: l 21:00: Phos-NaK) [place] 00 Each 1.5 gm pkt has 250mg phosphorou s. Mix w/2.5oz water and stir. mirtazapine 2016-11 No 0 Memori a 15 mg oral 0-05 Refill(s) l tablet 20:37: [place] 00 pregabalin 2016-11 No 50 mg = 1 Me moria 50 MG Oral 0-05 cap, PO, l Capsule 20:37: TID, 0 [place] [Lyrica] 00 Refill(s) baclofen 20 2016-11 No 0 Memori a mg oral 0-05 Refill(s) l tablet 20:37: [place] 00 OLANZapine 2016-11 No 0 Memoria 10 mg oral 0-05 Refill(s) l tablet, 20:37: Chan disintegrat 00 ing midazolam 2016-11 No Notes: Memori a 50mg/ NS 0-05 (Same as: l 50ml drip 20:17: Versed) Jessica nn (premixed) 00 50 mg midazolam 2016-11 No Notes: Memori a 50mg/ NS 0-05 (Same as: l 50ml drip 20:16: Versed) Jessica nn (premixed) 00 50 mg Versed 2016-11 No 3 mg, Memoria 0-05 Route: l 20:00: IVP, [place] 00 ONCALL, Dosing Weight 67.273, kg, Start date: 08/23/17 15:00:00 CDT, Duration: 30 day, Stop date: 09/22/17 14:59:00 CDT Midazolam 2016-11 No 100 mg, Memor ia 0-05 100 mL, l 18:53: Rate: Titrate, Start Dose: 1 mg/hr, Titration: Rebolus 1 mg IV and/or Titrate infusion by 1 mg/hour every 30 minutes, Goal(s): RASS 0, Max Dose: 10 mg/hr, Route: IV, Dosing Weight 67.273 kg, Total Volume: 100, Start date: 08/23/17 13:5... Tramadol 2016-11 No Notes: Not Mem oria 0-05 to exceed l 17:00: 400mg/day. 00 (Same As: Ultram) ocular 2016-11 No Notes: Memoria lubricant 0-05 (Same as: l 17:00: Lacri-Lube , Duratears Naturale, Artificial Tears, and Tears Again ) senna 8.6 2016-11 No Notes: Memori a mg oral 0-05 (Same as: l tablet 16:00: Senokot) Miralax 2016-11 No Notes: Memoria 0-05 Dissolve l 16:00: in 8 oz of water or juice. (Same as: Miralax) Thiamine 2016-11 No Notes: Memoria 0-05 (Same As: l 16:00: Vitamin B1) Folic Acid 2016-11 No Notes: Memor ia 0-05 (Same as: l 16:00: Folvite) Valium 2016-11 No Notes: Memoria 0-05 (Same as: l 15:22: Valium) Clonidine 2016-11 No Notes: Memori a 0-05 (Same As: l 15:16: Catapres) Tetrahydroc 2016-11 No 5 mg, Memor ia annabinol 0-05 Route: NG, l 14:19: Drug form: CAP, [id number], Dosing Weight 67.273, kg, Start date: 08/23/17 9:19:00 CDT, Duration: 30 day, Stop date: 09/21/17 21:19:00 CDT Methadone 2016-11 No Notes: Memori a 0-05 (Same as: l 14:17: Dolophine) Midazolam 2016-11 No 2 mg, Memoria 0-05 Route: l 14:16: IVP, ONCE, Dosing Weight 67.273, kg, Start date: 08/23/17 9:16:00 CDT, Stop date: 08/23/17 9:16:00 CDT Famotidine 2016-11 No Notes: Memor ia 0-05 (Same as: l 14:00: Pepcid) chlorhexidi 2016-11 No Notes: William jon ne 0-05 (Same As: l gluconate 14:00: Peridex) Herm mary 1.2 MG/ML Mouthwash chlorhexidi 2016-11 No Notes: William jon ne 0-05 (Same As: l gluconate 13:15: Peridex) Herm mary 1.2 MG/ML Mouthwash Dextrose 2016-11 No 12.5 gm, Memor ia 50% Syringe 0-05 25 mL, l 07:39: Route: IVP, Drug Form: INJ, Dosing Weight 67.273, kg, PRN, PRN Abnormal Lab Result, Start date: 08/23/17 2:39:00 CDT, Duration: 30 day, Stop date: 09/22/17 2:38:00 CDT, For FSBG 40 mg/dL - 60 mg/dL Insulin 2016-11 No 60 Memoria regular 0-05 units) l 07:39: WASTE: F/P - Black; E - Municipal Trash Bin Stable for 28 days at room temperatur e Expires in days from ____Date Oxycodone 2016-11 No Notes: Memori a Hydrochlori 0-05 (Same as: l de 5 MG 07:39: 'Roxicodon Herm mary Oral Tablet 00 e) celecoxib 2016-11 No Notes: Memori a 0-05 NSAID. l 07:39: Please Chan 00 check indication . Not for seizure. (Same As: CeleBREX) Acetaminoph 2016-11 No Notes: Max Memoria en 0-05 acetaminop l 07:39: hen 4000 Chan 00 mg/day (4 gm/day). (Same as: Tylenol Extra Strength) Unasyn 2016-11 No Notes: Memoria 0-05 Dosing l 07:00: based on Chan 00 Ampicillin component (Same as: Unasyn) Flagyl 2016-11 No Notes: Memoria 0-05 (Same as: l 07:00: Flagyl) Chan 00 Avoid alcohol. Enoxaparin 2016-11 No Notes: Memor ia 0-05 (Same as: l 05:00: Lovenox) [place] 00 Midazolam 2016-11 No Notes: Memori a 0-05 (Same as: l 04:40: Versed) [place] MEDICATION WASTE Product Size: 2 mg Product Wasted: ___ mg Fentanyl 2016-11 No 1,000 Memoria 0-05 microgram, l 04:02: 20 mL, Chan 00 Rate: Titrate, Start Dose: 50 microgram/ hr, Titration: 25 microgram/ hour every 15 minutes, Goal(s): Rass 0, Max Dose: 300 microgram/ hr, Route: IV, Dosing Weight 68.182 kg, Total Volume: 20, Start date: 08/22/17 23:02:00 Anderson LOCK... propofol 2016-11 No Notes: If William jon INJ 1,000 0-05 Diprivan - l mg 04:00: change Chan 00 bottle & tubing every 12 hr Per state nursing law propofol can only be given by a nurse if patient is intubated or being intubated (unless the nurse is a [employer] INVESTIGATOR). Same as: Diprivan Penicillin 2016-11 No 500 mg = 1 M emoria V Potassium 0-05 tab, PO, l 500 MG Oral 03:28: TID Rob n Tablet 00 mirtazapine 2016-11 No 15 mg = 1 M emoria 15 mg oral 0-05 tab, PO, l tablet 03:28: Bedtime [place] 00 baclofen 20 2016-11 No 20 mg = 1 M emoria mg oral 0-05 tab, PO, l tablet 03:28: Bedtime 00 OLANZapine 2016-11 No 10 mg = 1 Me moria 10 mg oral 0-05 tab, SL, l tablet, 03:28: Bedtime disintegrat 00 ing ibuprofen 2016-11 No 800 mg = 1 Me moria 800 mg oral 0-05 tab, PO, l tablet 03:28: Q8H, PRN Fever or Pain, Take with food sugammadex 2016-11 No Notes: Memor ia 0-05 (Same as: l 03:00: [place]) rocuronium 2016-11 No Route: IV, M emoria (ANES) 0-05 Drug form: l 02:46: INJ, ONCE, Stop date: 08/22/17 21:46:00 CDT lidocaine 2016-11 No Route: IV, Me moria (ANES) 0-05 Drug form: l 02:46: INJ, ONCE, Stop date: 08/22/17 21:46:00 CDT propofol 2016-11 No Route: IV, Mem oria (ANES) 0-05 Drug form: l 02:46: INJ, ONCE, Stop date: 08/22/17 21:46:00 CDT phenylephri 2016-11 No Route: IV, Memoria ne (ANES) 0-05 Drug form: l 02:41: INJ, ONCE, Stop date: 08/22/17 21:41:00 CDT acetaminoph 2016-11 No Route: IV, Memoria en (ANES) 0-05 Drug form: l 02:36: INJ, ONCE, Stop date: 08/22/17 21:36:00 CDT dexamethaso 2016-11 No Route: IV, Memoria ne (ANES) 0-05 Drug form: l 02:36: INJ, ONCE, Stop date: 08/22/17 21:36:00 CDT fentaNYL 2016-11 No Route: IV, Mem oria (ANES) 0-05 Drug form: l 02:31: INJ, ONCE, Stop date: 08/22/17 21:31:00 CDT metroNIDAZO 2016-11 No Route: IV, Memoria LE (ANES) 0-05 Drug form: l (ANES) 02:18: INJ, Start Jessica nn 00 date: 08/22/17 21:18:00 CDT, Stop date: 08/22/17 22:18:00 CDT LR 1000 mL 2016-11 No Route: IV, M emoria INJ (ANES) 0-05 Total l 01:42: Volume: Chan 00 1,000, Start date: 08/22/17 20:42:00 CDT, Stop date: 08/22/17 21:42:00 CDT Ativan 2016-11 No Notes: Memoria 0-04 (Same as: l 22:32: Ativan) [place] 00 Unasyn 2016-11 No Notes: Memoria 0-04 Dosing l 20:40: based on Ampicillin component (Same as: Unasyn) Unasyn 2016-11 No Notes: Memoria 0-04 Dosing l 20:14: based on Ampicillin component (Same as: Unasyn) NS (Bolus) 2016-11 No 1,000 mL, Me moria IV 0-04 1,000 l 19:40: ml/hr, Infuse Over: 1 hr, Route: IV, ONCE, Priority: STAT, Dosing Weight 68.182 kg, Start date: 08/22/17 14:40:00 CDT, Duration: 1 doses or times, Stop date: 08/22/17 14:40:00 CDT Morphine 2016-11 No 4 mg, Memoria 0-04 Route: l 17:41: IVP, ONCE, Dosing Weight 68.182, kg, Priority: STAT, Start date: 08/22/17 12:41:00 CDT, Stop date: 08/22/17 12:41:00 CDT Clindamycin 2016-11 Yes Notes: William jon 0-04 (clindamyc l 15:40: in 150 Chan 00 mg/1 ml (600 mg/4 ml VL) INJ) (Same As: Cleocin) Flagyl 2016-11 No 500 mg, Memoria 0-04 Route: l 15:26: IVPB, [place] 00 ONCE, Dosing Weight 68.182, kg, Priority: STAT, Start date: 08/22/17 10:26:00 CDT, Stop date: 08/22/17 10:26:00 CDT, ABX Indication : Skin/Soft Tissue Infection Cipro 2016-11 No Notes: Do Memoria 0-04 not l 15:26: refrigerat [place] 00 e Ativan 2016-11 No Notes: Memoria 0-04 (Same as: l 14:13: Ativan) [place] 00 Zofran 2016-11 No Notes: Memoria 0-04 (Same as: l 14:01: Zofran) [place] 00 MEDICATION WASTE Product Size: 4 mg Product Wasted: ___ mg Morphine 2016-11 No 4 mg, Memoria 0-04 Route: l 14:01: IVP, ONCE, Chan 00 Dosing Weight 68.182, kg, Priority: STAT, Start date: 08/22/17 9:01:00 CDT, Stop date: 08/22/17 9:01:00 CDT NS (Bolus) 2016-11 No 1,000 mL, Me moria IV 0-04 1,000 l 14:01: ml/hr, Infuse Over: 1 hr, Route: IV, 1,000, Drug form: INJ, ONCE, Priority: STAT, Dosing Weight 68.182 kg, Start date: 08/22/17 9:01:00 CDT, Duration: 1 doses or times, Stop date: 08/22/17 9:01:00 CDT Vital Signs Vital Name Observation Time Observation Value Comments Source Weight 2018-11-14 16:35:00 [facility] Resp[facility] Rate 2018-11-14 16:35:00 [facility] Heart Rate 2018-11-14 16:35:00 [facility] [place] Systolic (mm Hg) 2018-11-14 16:35:00 William rial [place] Diastolic (mm Hg) 2018-11-14 16:35:00 [facility] orial Chan BMI Calculated 2018-10-29 14:58:00 Aron al Chan Weight 2018-10-29 14:58:00 [facility] Chan Systolic (mm Hg) 2018-10-29 14:58:00 William rial [place] Diastolic (mm Hg) 2018-10-29 14:58:00 [facility] marahal [place] Height 2018-10-29 14:58:00 185.42 cm [facility] [place] Heart Rate 2018-10-29 14:58:00 [facility] [place] Respitory Rate 2018-10-29 14:58:00 Memori al Chan Heart Rate 2018-10-23 21:45:00 [facility] [place] Systolic (mm Hg) 2018-10-23 21:45:00 William rial [place] Diastolic (mm Hg) 2018-10-23 21:45:00 Mem orial [place] Respitory Rate 2018-10-23 21:45:00 Memori al Chan Respitory Rate 2018-10-23 21:30:00 Memori al [place] Systolic (mm Hg) 2018-10-23 21:30:00 William rial Chan Diastolic (mm Hg) 2018-10-23 21:30:00 Mem orial Chan Respitory Rate 2018-10-23 21:15:00 Memori al Chan Systolic (mm Hg) 2018-10-23 21:15:00 William rial Chan Diastolic (mm Hg) 2018-10-23 21:15:00 Mem orial [place] Heart Rate 2018-10-23 14:13:00 [facility] [place] BMI Calculated 2018-10-23 14:13:00 Memori al Chan Weight 2018-10-23 14:13:00 [facility] [place] Height 2018-10-23 14:13:00 185.42 cm [facility] [place] Weight 2018-10-22 14:42:00 [facility] [place] BMI Calculated 2018-10-22 14:42:00 Memori al Chan Height 2018-10-22 14:42:00 185.42 cm [facility] [place] Systolic (mm Hg) 2018-09-17 15:12:00 William rial Chan Diastolic (mm Hg) 2018-09-17 15:12:00 Mem orial Chan Heart Rate 2018-09-17 15:12:00 [facility] [place] Respitory Rate 2018-09-17 15:12:00 Memori al Chan BMI Calculated 2018-09-17 15:12:00 Memori al [place] Weight 2018-09-17 15:12:00 [facility] [place] Height 2018-09-17 15:12:00 185.42 cm [facility] [place] BP Systolic 2018-07-16 10:28:00 118 mm[Hg] [facility] BP Diastolic 2018-07-16 10:28:00 86 mm[Hg] [facility] Height 2018-07-16 10:28:00 73 [in_us] [facility] Weight 2018-07-16 10:28:00 152 [lb_av] [facility] Body Mass Index 2018-07-16 10:28:00 20.05 kg/m2 [facility] Heart Rate 2018-07-16 10:28:00 92 /min [facility] O2 SAT 2018-07-16 10:28:00 97 % [facility] BMI Calculated 2018-06-06 14:33:00 [facility] al [place] Weight 2018-06-06 14:33:00 [facility] [place] Height 2018-06-06 14:33:00 185.42 cm [facility] Chan Heart Rate 2018-06-06 14:33:00 [facility] [place] Respitory Rate 2018-06-06 14:33:00 Memori al Chan Systolic (mm Hg) 2018-06-06 14:33:00 William rial [place] Diastolic (mm Hg) 2018-06-06 14:33:00 Mem orial [place] BP Systolic 2018-04-16 10:49:00 136 mm[Hg] [facility] BP Diastolic 2018-04-16 10:49:00 93 mm[Hg] [facility] Height 2018-04-16 10:49:00 73 [in_us] [facility] Weight 2018-04-16 10:49:00 156.125 [lb_av] [facility] [place] [facility] Body Mass Index 2018-04-16 10:49:00 20.6 kg/m2 [facility] Heart Rate 2018-04-16 10:49:00 70 /min [facility] Respiration Rate 2018-04-16 10:49:00 22 /min [facility] [place] [facility] O2 SAT 2018-04-16 10:49:00 99 % Source: RA [facility] Respitory Rate 2018-03-28 14:57:00 Memori al Chan Heart Rate 2018-03-28 14:57:00 [facility] [place] Systolic (mm Hg) 2018-03-28 14:57:00 William rial [place] Diastolic (mm Hg) 2018-03-28 14:57:00 Mem orial [place] Weight 2018-03-28 14:57:00 [facility] [place] Weight 2018-03-14 15:21:00 [facility] [place] BMI Calculated 2018-03-14 15:21:00 Memori al [place] Height 2018-03-14 15:21:00 185.42 cm [facility] Chan Respitory Rate 2018-03-14 15:21:00 Memori al [place] Systolic (mm Hg) 2018-03-14 15:21:00 William rial [place] Diastolic (mm Hg) 2018-03-14 15:21:00 Mem orial [place] Heart Rate 2018-03-14 15:21:00 [facility] [place] Respitory Rate 2018-02-21 22:07:00 Memori al Chan BMI Calculated 2018-02-21 22:07:00 Memori al [place] Weight 2018-02-21 22:07:00 [facility] [place] Heart Rate 2018-02-21 22:07:00 [facility] [place] Systolic (mm Hg) 2018-02-21 22:07:00 William rial [place] Diastolic (mm Hg) 2018-02-21 22:07:00 Mem orial [place] Height 2018-02-21 22:07:00 185.42 cm [facility] [place] Respitory Rate 2018-01-29 15:11:00 Memori al Chan Heart Rate 2018-01-29 15:11:00 [facility] [place] Weight 2018-01-29 15:11:00 [facility] [place] Systolic (mm Hg) 2018-01-29 15:11:00 William rial [place] Diastolic (mm Hg) 2018-01-29 15:11:00 Mem orial [place] Systolic (mm Hg) 2018-01-18 14:35:00 William rial [place] Diastolic (mm Hg) 2018-01-18 14:35:00 Mem orial [place] Respitory Rate 2018-01-18 14:35:00 Memori al Chan Heart Rate 2018-01-18 14:35:00 [facility] [place] Respitory Rate 2018-01-18 09:20:00 Memori al [place] Heart Rate 2018-01-18 09:20:00 [facility] [place] Systolic (mm Hg) 2018-01-18 09:20:00 William rial Chan Diastolic (mm Hg) 2018-01-18 09:20:00 Mem orial [place] Respitory Rate 2018-01-18 05:11:00 Memori al [place] Systolic (mm Hg) 2018-01-18 05:11:00 William rial [place] Diastolic (mm Hg) 2018-01-18 05:11:00 Mem orial [place] Heart Rate 2018-01-18 05:11:00 [facility] Chan Temperature Oral 2018-01-14 23:20:00 97.7 F William rial [place] (F) Temperature Oral 2018-01-14 02:13:00 97.1 F William rial [place] (F) Temperature Oral 2018-01-13 23:16:00 97.9 F William rial [place] (F) Height 2018-01-11 19:47:00 185.42 cm [facility] [place] BMI Calculated 2018-01-11 19:47:00 Memori al Chan Weight 2018-01-11 19:47:00 [facility] [place] Weight 2018-01-11 09:22:00 [facility] [place] BMI Calculated 2018-01-10 19:16:00 Memori al Chan Weight 2018-01-10 19:16:00 [facility] [place] Height 2018-01-10 19:16:00 185.42 cm [facility] Chan Heart Rate 2018-01-10 19:16:00 [facility] [place] Systolic (mm Hg) 2018-01-10 19:16:00 William rial Chan Diastolic (mm Hg) 2018-01-10 19:16:00 Mem orial Chan Weight 2017-12-27 16:41:00 [facility] [place] Respitory Rate 2017-12-27 16:41:00 Memori al Chan Heart Rate 2017-12-27 16:41:00 [facility] [place] Systolic (mm Hg) 2017-12-27 16:41:00 William rial [place] Diastolic (mm Hg) 2017-12-27 16:41:00 Mem orial [place] Weight 2017-11-06 16:53:00 [facility] [place] BMI Calculated 2017-11-06 16:53:00 Memori al Chan Respitory Rate 2017-11-06 16:53:00 Memori al [place] Height 2017-11-06 16:53:00 185.42 cm [facility] Chan Systolic (mm Hg) 2017-11-06 16:53:00 William rial [place] Diastolic (mm Hg) 2017-11-06 16:53:00 Mem orial Chan Heart Rate 2017-11-06 16:53:00 [facility] [place] Systolic (mm Hg) 2017-10-23 15:59:00 William rial [place] Diastolic (mm Hg) 2017-10-23 15:59:00 Mem orial Chan Heart Rate 2017-10-23 15:59:00 [facility] [place] Respitory Rate 2017-10-23 15:59:00 Memori al [place] Weight 2017-10-23 15:59:00 [facility] [place] BMI Calculated 2017-10-23 15:59:00 Memori al Chan Height 2017-10-23 15:59:00 185.42 cm [facility] [place] BMI Calculated 2017-10-09 15:31:00 Memori al Chan Weight 2017-10-09 15:31:00 [facility] [place] Height 2017-10-09 15:31:00 185.42 cm [facility] [place] Systolic (mm Hg) 2017-10-09 15:31:00 William rial Chan Diastolic (mm Hg) 2017-10-09 15:31:00 Mem orial Chan Respitory Rate 2017-10-09 15:31:00 Memori al Chan Heart Rate 2017-10-09 15:31:00 [facility] [place] Systolic (mm Hg) 2017-10-03 16:30:00 William rial [place] Diastolic (mm Hg) 2017-10-03 16:30:00 Mem orial [place] Respitory Rate 2017-10-03 16:30:00 Memori al [place] Heart Rate 2017-10-03 16:30:00 [facility] [place] Respitory Rate 2017-10-03 16:15:00 Memori al [place] Systolic (mm Hg) 2017-10-03 16:15:00 William rial [place] Diastolic (mm Hg) 2017-10-03 16:15:00 Mem orial Chan Respitory Rate 2017-10-03 16:00:00 Memori al [place] Systolic (mm Hg) 2017-10-03 16:00:00 William rial [place] Diastolic (mm Hg) 2017-10-03 16:00:00 Mem orial Chan Heart Rate 2017-10-03 12:54:00 [facility] [place] Height 2017-10-03 12:47:00 185.42 cm [facility] [place] BMI Calculated 2017-10-03 12:47:00 Mem[facility] al [place] Weight 2017-10-03 12:47:00 [facility] Respitory Rate 2017-08-27 21:06:00 Memori al Chan Systolic (mm Hg) 2017-08-27 21:06:00 Willaim rial [place] Diastolic (mm Hg) 2017-08-27 21:06:00 Mem orial [place] Heart Rate 2017-08-27 21:06:00 [facility] Chan Respitory Rate 2017-08-27 17:35:00 Memori al [place] Systolic (mm Hg) 2017-08-27 17:35:00 William rial Chan Diastolic (mm Hg) 2017-08-27 17:35:00 Mem orial [place] Heart Rate 2017-08-27 17:35:00 [facility] [place] Systolic (mm Hg) 2017-08-27 13:09:00 William rial Chan Diastolic (mm Hg) 2017-08-27 13:09:00 Mem orial Chan Respitory Rate 2017-08-27 13:09:00 Memori al [place] Heart Rate 2017-08-27 13:09:00 [facility] [place] Height 2017-08-25 16:17:00 185.42 cm [facility] [place] Height 2017-08-25 12:36:00 185.42 cm [facility] [place] Height 2017-08-25 11:03:00 185.42 cm [facility] Weight 2017-08-23 05:54:00 [facility] BMI Calculated 2017-08-23 05:54:00 Memori al Chan Temperature Oral 2017-08-22 23:05:00 100.7 F William rial Chan (F) Temperature Oral 2017-08-22 20:46:00 99.4 F William rial Chan (F) Temperature Oral 2017-08-22 18:35:00 98.4 F William rial [place] (F) BMI Calculated 2017-08-22 18:35:00 [facility] al [place] Weight 2017-08-22 18:35:00 [facility] Respitory Rate 2017-08-22 17:22:00 Memori al [place] Heart Rate 2017-08-22 17:22:00 [facility] [place] Systolic (mm Hg) 2017-08-22 17:22:00 William rial [place] Diastolic (mm Hg) 2017-08-22 17:22:00 Mem orial [place] Heart Rate 2017-08-22 16:35:00 [facility] [place] Respitory Rate 2017-08-22 16:35:00 Memori al Chan Systolic (mm Hg) 2017-08-22 16:35:00 William rial [place] Diastolic (mm Hg) 2017-08-22 16:35:00 Mem orial Chan Systolic (mm Hg) 2017-08-22 13:56:00 William rial [place] Diastolic (mm Hg) 2017-08-22 13:56:00 Mem orial [place] Respitory Rate 2017-08-22 13:56:00 Memori al Chan Heart Rate 2017-08-22 13:56:00 [facility] Temperature Oral 2017-08-22 13:56:00 98.3 F William rial [place] (F) Weight 2017-08-22 13:56:00 [facility] [place] BMI Calculated 2017-08-22 13:56:00 Memori al [place] Height 2017-08-22 13:56:00 182.88 cm [facility] [place] Procedures Procedure Date / Time Performed Performing Clinician [facility] e Operation<sup>1, 2</sup> Memoria l Chan Plan of Care Planned Activity Planned Date Details Comments Source Future Scheduled 2020-06-19 IN[facility]ENZA VACCINE [place] [facility] 00:00:00 [code = INFLUENZA VACCINE] Future Scheduled [facility] [code = COLONOSCOPY SCREENING] Future Scheduled 2011 SHINGLES VACCINES [place] [facility] 00:00:00 (#1) [code = SHINGLES VACCINES (#1)] Encounters Start End Encounter Admission Attending Care Care Encounter Source Date/Time Date/Time Type Type Clinicians Facility Department ID 2018-10-29 2018-11-27 [place] [facility] [id number] 08:02:00 23:59:00 Jase 06 Mtabetitoos 2018-10-23 2018-10-23 Out[place] [facility] [id number] 07:42:00 23:59:00 Jase 04 Mtabetitoos 2018-09-17 2018-10-16 Out[place], [facility] [id number] 08:55:00 23:59:00 Jase 08 Mtanios 2018-07-16 2018-07-16 Appointmen [facility] [id number] Univers 10:00:00 10:00:00 t; Christine [facility] [place] [facility] M.D. Physi ci ans 2018-06-06 2018-07-05 Out[place], [facility] [id number] 09:23:00 23:59:00 Jase 05 Mtanios 2018-04-16 2018-04-16 Appointmen BLAINE G[facility] Infectious [id number] Univers 10:30:00 10:30:00 t; Christine FERNANDES [facility] [place] FERNANDES M.D. Physi ci ans 2018-03-14 2018-04-12 Outpatient [place], [facility] [id number] 10:15:00 23:59:00 Jase 04 Mtanios 2018-03-12 2018-03-12 Appointmen BLAINE GANT UTP [id number] Univers 09:30:00 09:30:00 t; Christine FERNANDES [facility] [place] Marlin FERNANDES M.D. Physi ci ans 2018-01-29 2018-02-27 Outpatient [place], [facility] [id number] 09:50:00 23:59:00 Jase 03 Mtanios 2017-12-27 2018-01-25 [place], [facility] [id number] 10:06:00 23:59:00 Jase 02 Mtanios 2017-12-27 2018-01-25 Out[place], [facility] [id number] 10:06:00 23:59:00 Jase 02 Mtanios 2017-12-27 2018-01-25 Outpatient [place], [facility] [id number] 10:06:00 23:59:00 Jase 02 Mtanios 2018-01-10 2018-01-18 Outpatient [place], [facility] [id number] 13:53:00 12:10:00 Jase 53 Mtanios 2017-12-25 2017-12-25 [id number] 19:50:00 21:15:00 Rodrigue 03 Richard 2017-10-09 2017-11-07 Outpatient [place], [facility] [id number] 09:16:00 23:59:00 Jase 01 Mtanios 2017-09-06 2017-10-05 Outpatient [place], [facility] [id number] 09:14:00 23:59:00 Jase 00 Mtanios 2017-10-03 2017-10-03 Outpatient [place], [facility] [id number] 05:57:00 23:59:00 Jase 02 Mtanios 2017-08-22 2017-08-27 Outpatient Jasson [facility] [id number] 13:33:00 19:30:00 Jone J 01 2017-08-22 2017-08-22 [id number] 08:40:00 13:29:00 Rodrigue Omar Ramos Results Test Description Test Time Test Comments Results Result [facility] e Comments BLOOD BANK RESULTS 2018-10-23 Negative [facility] 14:27:00 (10/23/18 8:27 Chan AM) CHEM PANEL 2018-01-15 8.9 [facility] 15:25:00 [place] CHEM PANEL 2018-01-15 27 [facility] 15:25:00 Chan CHEM PANEL 2018-01-15 145 [facility] 15:25:00 Chan CHEM PANEL 2018-01-15 0.70 [facility] 15:25:00 [place] CHEM PANEL 2018-01-15 111 [facility] 15:25:00 Chan CHEM PANEL 2018-01-15 4.1 [facility] 15:25:00 [place] CHEM PANEL 2018-01-15 17 [facility] 15:25:00 Chan CHEM PANEL 2018-01-15 89 [facility] 15:25:00 [place] CHEM PANEL 2018-01-15 105 [facility] 15:25:00 [facility] CHEM PANEL 2018-01-15 11.1 [facility] 15:25:00 [facility] HEMATOLOGY 2018-01-15 26.8 [facility] 15:25:00 [place] HEMATOLOGY 2018-01-15 3.9 [facility] 15:25:00 [facility] HEMATOLOGY 2018-01-15 7.0 [facility] 15:25:00 [facility] HEMATOLOGY 2018-01-15 4.2 [facility] 15:25:00 [place] HEMATOLOGY 2018-01-15 0.6 [facility] 15:25:00 [place] HEMATOLOGY 2018-01-15 1.8 [facility] 15:25:00 [facility] HEMATOLOGY 2018-01-15 61.7 [facility] 15:25:00 [facility] HEMATOLOGY 2018-01-15 0.3 [facility] 15:25:00 [place] HEMATOLOGY 2018-01-15 0.5 [facility] 15:25:00 [facility] HEMATOLOGY 2018-01-15 34.4 [facility] 15:25:00 [facility] HEMATOLOGY 2018-01-15 12.2 [facility] 15:25:00 [place] HEMATOLOGY 2018-01-15 15:25:00 Test Item Value Reference Range Interpretation Comme nts MCH (test code = MCH) 31.8 pg 27.0-31.0 [facility] XetotkxDLTDWTPSWF6775-45-46 15:25:55935Fypolgll HermannHEMATOLOGY 2018-01-15 15:25:008.4[facility] EjrpstsFESWTNACSX5311-55-37 15:25:0092.7[facility] VjoanlyPGJKXHYGFO1510-20-77 15:25:006.8[facility] ZdxopelPJYAZVCYMU2389-82-34 15:25:004.02[facility] ZdxibxfDQQTLWQIVW4238-69-70 15:25:0012.8[facility] TYIEHDGJAI0677-77-54 15:25:0037.3[facility] RlitpjzHUMXESEVCTDK5585-21-10 12:18:00 13.4[facility] RglaiawZOPYWUAIZBXA8333-81-89 12:18:64055Hoprhidj [place] SBKWZYGDYKIT9978-10-07 12:18:0077[facility] PvfunuuIHLXQWAWQPWO4701-27-29 12:18:00 0.67[facility] TvoicuhQBMLVPRJJWQX0207-27-76 12:18:0016[facility] FMRCVYRLFIDH6534-06-70 12:18:26358Jawizafn GwmvczhUXTNPJAKNWJZ5777-82-30 12:18:46920Sfvtubpi HfrlpazFDWRGEYNWBWI0908-92-49 12:18:004.4[facility] IFMOVMHLBZMV8980-73-26 12:18:008.6[facility] ZyelricSADXGLPBGBAD9567-43-93 12:18:0024[facility] AxetrsfXTMYOSXOXL0242-68-67 12:18:0056.4[facility] [place] JYNLDWUJPQ8752-57-02 12:18:0030.9[facility] OcvfikwATKCUOZDCU3020-31-59 12:18:00 8.2[facility] XfgmcbnSYCYNIMZCH8968-21-40 12:18:001.0[facility] HermannHEMATOLOGY 2018-01-14 12:18:003.5[facility] VqifprbXIMILLPLTG7664-74-94 12:18:004.4[facility] PyhcnjtXUZXDENUEV8266-77-01 12:18:002.4[facility] GelommrHFHPLDJUIA9992-90-98 12:18:000.3[facility] OnlviakTMVJSBYEDR4156-61-79 12:18:000.1[facility] AJQFRDIIIK5200-57-13 12:18:000.6[facility] ImoswinRKFDUDAHIY1899-96-05 12:18:00 38.9[facility] YmtmubmJAOPTMCBTH1424-63-23 12:18:0094.4[facility] HermannHEMATOLOGY 2018-01-14 12:18:00 Test Item Value Reference Range Interpretation Comments MCH (test code = MCH) 31.8 pg 27.0-31.0 [facility] RecednaUYSBPXCBCZ9967-30-34 12:18:0033.7[facility] HermannHEMATOLOGY 2018-01-14 12:18:0013.0[facility] GujdqsaVOJWWELTYB1166-12-97 12:18:30755Qvnykpkm PimstlpKKRTHZVVDC9755-02-83 12:18:008.5[facility] EakviodAKLZRXWATH2380-42-97 12:18:007.8[facility] EdeqdtfKLCHZOOJEO9955-22-91 12:18:004.12[facility] HGQZNKKPGW7398-25-63 12:18:0013.1[facility] BcnozxcRMFSEQTMMBEP1901-80-74 17:16:00 9.1[facility] DcsfgvdJCDNXPJRCZQZ4739-69-79 17:16:05825Unhfefme Chan ZXYXZLTSDYAH0439-37-86 17:16:0081[facility] NsqumurPTAEZRVRWCCI7587-22-91 17:16:00 141[facility] UdjiksjGSLDDJCMKGCM0461-37-85 17:16:000.73[facility] DERIWKHACCBF0661-50-61 17:16:0018[facility] VaetqwjBIFSZYUPNKQD1651-82-01 17:16:00 8.7[facility] RqbyhjuFNBFVOMSDVGI5221-61-73 17:16:0027[facility] HermannELECTROLYTES 2018-01-13 17:16:62181Eipijuxr BwlliuqVJFEYWIEJPFO9878-29-31 17:16:004.1[facility] MaleqytZMXUENENXC1480-17-57 17:16:005.8[facility] WnjvhxvCFKDDCAOKP4026-73-75 17:16:006.7[facility] UoerslvVZRXOAZAPJ4198-80-14 17:16:000.4[facility] [place] BNBUCJOFTH2774-67-92 17:16:002.0[facility] IqzkgvpGJEPBDVMHX3060-78-83 17:16:001.6 [facility] PpfmlltHVZTIPUPSL9495-72-18 17:16:000.6[facility] HermannHEMATOLOGY 2018-01-13 17:16:000.1[facility] IeyatavYUNOJUTBLM4834-29-33 17:16:0067.9[facility] DupxhqdCTUVRQVILD8265-89-71 17:16:0023.4[facility] JnyebfxZMTIABXDIE4050-99-31 17:16:004.04[facility] XdsegxbXRZARVPBHS8243-14-88 17:16:0012.9[facility] [place] HVKITZNXBB6392-04-70 17:16:0037.9[facility] NhfopkpQDUXFZDOVT4656-27-10 17:16:00 94.0[facility] SabollmYGDRYSIHTA9159-74-37 17:16:008.5[facility] HermannHEMATOLOGY 2018-01-13 17:16:0012.7[facility] QsjssgeHQOSKJBUKL3596-57-81 17:16:56081Opgmuzpo DzzmxrdJBPNFLHASO4171-62-25 17:16:0034.0[facility] NpzijyxINAECKQJCD2760-62-12 17:16:00 Test Item Value Reference Range Interpretation Comments MCH (test code = MCH) 32.0 pg 27.0-31.0 [facility] SwkgnzdBGGWMDUEZF9010-94-26 17:16:008.5[facility] HermannBLOOD BANK UVAVBEQ5899-54-58 07:36:00Negative (01/11/18 1:36 AM)[facility] HermannHEMATOLOGY 2018-01-11 07:36:000.1[facility] HermannCHEM GRYQA9785-02-75 08:10:002.8[facility] HermannCHEM LWVLK4981-25-41 08:10:002.4[facility] HermannCHEM DQCXP2868-70-18 08:10:28602Ahxjheux HermannCHEM PODJJ3550-69-43 08:10:00831Wtduotfu HermannCHEM NRZCL2241-23-24 08:10:0030[facility] HermannCHEM DUJRZ5392-67-21 08:10:008.1 [facility] HermannCHEM LZODB6491-80-08 08:10:009.1[facility] HermannCHEM PANEL 2017-08-26 08:10:004.1[facility] HermannCHEM VAVYO6147-73-23 08:10:000.64[facility] HermannCHEM GZYFU0421-08-09 08:10:80392Eqeycihw HermannCHEM XGGIF3150-27-08 08:10:0078[facility] HermannCHEM MNMYP2172-47-55 08:10:0021[facility] RADUNKMXAH6750-51-19 08:10:008.4[facility] LdplkzeAZMQKDCBGD4807-98-02 08:10:00 14.3[facility] LkouodwUXYYJYGQOU1299-81-97 08:10:94079Lxskdjde HermannHEMATOLOGY 2017-08-26 08:10:0032.5[facility] LshnmizMZDWDBOMBS3192-51-61 08:10:0097.2[facility] DgvjkyhJMTWBBXTTJ6830-76-04 08:10:00 Test Item Value Reference Range Interpretation Comments MCH (test code = MCH) 31.6 pg 27.0-31.0 [facility] FscokbaAEHIGVSYMW7713-37-81 08:10:0033.0[facility] HermannHEMATOLOGY 2017-08-26 08:10:0010.7[facility] ClmfkpzRONJZUEUYH9771-53-76 08:10:003.39[facility] TolibuvSEIDARNCZT6529-07-31 08:10:0013.7[facility] NqglgrpKDAHSIMCUQ3386-67-19 08:10:000.2[facility] SaqqavxYJSFMHSAOK1173-79-38 08:10:001.3[facility] EQGTIJOFEP6117-34-35 08:10:009.3[facility] EnxkdlwQVPRODVFUY4454-81-05 08:10:002.8 [facility] BmlkepfHUZZWNCUTP5609-60-23 08:10:009.8[facility] HermannHEMATOLOGY 2017-08-26 08:10:000.2[facility] QohlaoeYFGATIJHFZ5902-88-74 08:10:001.3[facility] IddwcljQAKHVYDCWI1686-23-86 08:10:0020.4[facility] RhvmpxpOTZEJFTERM3493-42-74 08:10:0068.3[facility] OjqdceiREVOGNIIHQXH3130-93-87 08:17:0010.0[facility] [place] QAQAYQNEJQFA3376-05-88 08:17:008.0[facility] IbwxfupQEKTKJIOIRJC0104-81-51 08:17:0030[facility] AdtcimbRGHFXIPHRCFV4681-67-35 08:17:33008Bxavywcj Chan VFSSBLCDSRCS3325-08-01 08:17:000.72[facility] HqsmhdsPMCNBNFVIKVA5176-61-20 08:17:0028[facility] OpvuhulLWOFAKJXKKQU0271-51-61 08:17:73768Hgwffmqb [place] ZSQIQMNXQSNY3518-91-07 08:17:004.0[facility] SpszxocCDUTNFRVUZAF7980-58-69 08:17:22620Nkzobyyi GqwxgarPFNGLVMDUVEP2069-91-34 08:17:95082Kmpkopiw [facility] JDTVDYJXMP2831-77-55 08:17:0013.8[facility] AkbfgywMNKVIYVVPX8592-64-73 08:17:00 10.3[facility] XsllptdTKRVOAUZXW8252-65-30 08:17:003.25[facility] HermannHEMATOLOGY 2017-08-25 08:17:0096.3[facility] LkzwgtzSRWOMNMGHA7418-93-41 08:17:00 Test Item Value Reference Range Interpretation Comments MCH (test code = MCH) 31.8 pg 27.0-31.0 [facility] JgzvncnAQSRBBDKQB9236-19-05 08:17:0033.0[facility] HermannHEMATOLOGY 2017-08-25 08:17:0031.3[facility] FfaylrkKRBIUUOZMF2137-51-22 08:17:008.5[facility] FyqzadrJXVZYHHPLX9420-67-37 08:17:39596Ovcquzcb NmimwmgYBXBXIBDZE4573-39-63 08:17:0014.4[facility] JvtjaitDVYAMVOHPQJX8080-27-08 07:59:0013.7[facility] APJVBZAAQNYO6679-16-09 07:59:0030[facility] NjvskkoYBOZQFBMKTKN9316-14-86 07:59:00 108[facility] QonjagzFETENAXEHXMD1871-99-55 07:59:004.7[facility] XFNBUHVAQWAK1840-24-04 07:59:36432Bzznyauu WkcvpejSOGACXJPFPHO4970-19-31 07:59:008.1[facility] MydavygQRJMFWIJELMQ6133-53-91 07:59:000.90[facility] XALOFBTQVXUS3654-57-68 07:59:0032[facility] MoeoqzeNAXOXDIUPDCF8575-73-97 07:59:00 109[facility] ZhdayolBYOOMVEYYMYB7346-46-91 07:59:0095[facility] HermannHEMATOLOGY 2017-08-24 07:59:0097.8[facility] NewlekeXKUMGCVGAV0750-73-80 07:59:00 Test Item Value Reference Range Interpretation Comments MCH (test code = MCH) 31.9 pg 27.0-31.0 [facility] ZclmeehGNMWNCUGRZ0126-53-15 07:59:0032.7[facility] HermannHEMATOLOGY 2017-08-24 07:59:0030.8[facility] RnquqwcHSSGKJAGLV0885-02-71 07:59:0010.1[facility] AqljgrhUOYSEVYUAK1310-65-42 07:59:0015.9[facility] GhajbnoOKMGXBUHIM3605-00-12 07:59:003.15[facility] GxfmbjkWUOBZFVMMG2996-12-95 07:59:009.0[facility] HAEWDGFDNS2054-98-58 07:59:0014.4[facility] WfawrvkMYJGHBMHDS5316-51-92 07:59:00 305[facility] HermannCHEM OVINA1505-18-58 06:34:002.1[facility] HermannCHEM PANEL 2017-08-23 06:34:003.1[facility] HermannBLOOD BANK FWRBQOV7039-78-96 01:20:00 Negative (08/22/17 8:20 PM)[facility] HermannCHEM GYIOY0873-60-35 23:26:001.3 [facility] HermannCHEM GTEUS1745-65-66 16:23:000.8[facility] HermannELECTROLYTES 2017-08-22 14:20:49448Acjyaols ZachhksVGHVXJBZAMUC9118-88-93 14:20:17994Pijqexgj BaaymnvZLLITLDZTMAX0388-07-81 14:20:009.1[facility] MdoemgzYZFUUWBRPIVG4343-29-34 14:20:003.9[facility] WuojdekZTUKFOGMVSCT9901-86-89 14:20:0098[facility] [place] YUYPLNSQISHE7538-95-82 14:20:0081[facility] YxrcbpeADGOIDRZHSZO5722-63-63 14:20:00 2.7[facility] LnmwzbfEEPQQEFUYILS6371-72-67 14:20:0032[facility] HermannELECTROLYTES 2017-08-22 14:20:0027[facility] YhigoitVTAVLVWZBFOU7510-42-69 14:20:000.85[facility] DitpooxDLQEEFGPNHDY3979-35-89 14:20:0027[facility] FylrgykEDJUCGHUDBFU6787-69-59 14:20:0017[facility] HoxdpomZEHOSCIMFNGD0913-33-60 14:20:37532Gmlmpwyf [place] WLFFZCDORZTN4834-25-82 14:20:000.4[facility] RtqgzjgODSRAPRFENBQ1415-55-30 14:20:006.9[facility] FfnrqpbASWFAKYKHJTS4184-89-97 14:20:0020[facility] [place] SAKXXZUGTSJO3770-48-10 14:20:0015.9[facility] LguxvbhFPRZAYOLJUQD7946-18-48 14:20:000.6[facility] JsvnlegTGOLXUTSSVPK8525-02-45 14:20:004.2[facility] HAOPYBHYJM3135-67-22 14:20:009.2[facility] NbsimhyCTGITOCHIN2886-73-85 14:20:30754 [facility] MeezsizKIMVNFMWFR5637-59-11 14:20:00 Test Item Value Reference Range Interpretation Comments MCH (test code = MCH) 32.7 pg 27.0-31.0 [facility] DwkbtqaEFKGAIDLFU8227-79-27 14:20:0034.2[facility] HermannHEMATOLOGY 2017-08-22 14:20:0014.0[facility] WrfwhmcNNJMMCOGSE0611-42-33 14:20:004.14[facility] UoxlubcOPJKAGOCSD7466-04-64 14:20:0020.2[facility] FsozsvoOWXSYNPGBW0153-29-22 14:20:0095.7[facility] WbbfpmkWIVHGAMSYT2488-13-03 14:20:0013.6[facility] KVKWVHMDKW4046-01-27 14:20:0039.6[facility] QcqvxokGSGVYRVLOC5345-53-49 14:20:00 0.1[facility] FdbkqojWDJSZCKGAS5917-60-98 14:20:001.9[facility] HermannHEMATOLOGY 2017-08-22 14:20:0017.1[facility] TadxswhXDQQJXULGH5116-78-40 14:20:001.1[facility] JzyanfuWXFIBUBQSC5862-21-94 14:20:009.5[facility] XhfoorwRAHQDXTLKV6607-68-56 14:20:000.5[facility] NnstdpyPQZXFAXUTT5251-03-05 14:20:000.1[facility] [place] VNNJJOVOKG1827-11-03 14:20:0084.6[facility] JyipocgLTECTXNQWQ6649-52-30 14:20:00 5.3[facility]
--- OUTSIDE RECORDS SUMMARY | 2020-09-10 08:32 | XMS REPORT | Summary of Care ---
:1960 Author Name Yahaira Snyder Address Unavailable Unavailable , Care Team [...]
[2020-09-10] MEDS ORDERED: LIDOCAINE 1% 20 ML MDV ONE (08:51)
[2020-09-10] MEDS ORDERED: Ringers Lactate 1,000 ML IV ONE (08:52)
[2020-09-10] MEDS ORDERED: DIAZEPAM 5 MG TABLET ONE (08:56)
[2020-09-10] MEDS ORDERED: LIDOCAINE 1% MPF 5 ML VIAL ONE (09:10)
[2020-09-10] MEDS ORDERED: propofoL 200 MG/20 ML VIAL IV ONE (09:10)
[2020-09-10] MEDS ORDERED: MIDAZOLAM HCL 2 MG/2 ML INJ ONE (09:10)
--- NOTE | 2020-09-10 09:32 | ENDO RPT ---
[address], [address] COLONOSCOPY PROCEDURE REPORT EXAM DATE: 09/10/2020 PATIENT NAME: Kain Riley MR #: [id number] BIRTHDATE: 1960 ATTENDING: Eulogio Mac DR STATUS: outpatient [place] ARCHITECT: Carlo Smith and Edith Lopez RN INDICATIONS: The patient is a 60 yr old Male here for a colonoscopy due to colon cancer screening PROCEDURE PERFORMED: Colonoscopy with biopsy - cold polypectomy MEDICATIONS: Per Anesthesia. ESTIMATED BLOOD LOSS: None CONSENT: The patient understands the risks and benefits of the procedure and understands that these risks include, but are not limited to: sedation, allergic reaction, infection, perforation and/or bleeding. Alternative means of evaluation and treatment include, among others: physical exam, x-rays, and/or surgical intervention. The patient elects to proceed with this endoscopic procedure. DESCRIPTION OF PROCEDURE: During intra-op preparation period all mechanical medical equipment was checked for proper function. Hand hygiene and appropriate measures for infection prevention was taken. Procedure, possible complications, alternatives including, but not limited to possibility of bleeding, perforation, tear, infection, sepsis, need for surgery, need for blood transfusion, were explained to the patient. After the risks, benefits and alternatives of the procedure were thoroughly explained, Informed consent was verified, confirmed and timeout was successfully executed by the treatment team. The patient was placed in the left lateral position. A digital rectal exam was performed and revealed internal hemorrhoids. After appropriate level of anesthesia, the scope was passed. The EC-[id number] ([id number]) endoscope was introduced through the anus and advanced to the cecum, which was identified by both the appendix and ileocecal valve. The quality of the prep was fair. The instrument was then slowly withdrawn as the colon was fully examined. Scope withdrawal time was 11 minutes. COLON FINDINGS: There was moderate diverticulosis noted in the left colon with associated angulation. No bleeding was noted from the diverticulosis. A small smooth sessile polyp with a mucous cap and a friable surface was found in the right colon. A polypectomy was performed with a cold snare. The resection was complete, the polyp tissue was completely retrieved and sent to histology. Small internal hemorrhoids were found. Retroflexed views revealed no abnormalities. The scope was then completely withdrawn from the patient and the procedure terminated. ADVERSE EVENTS: There were no complications. IMPRESSIONS: 1. There was moderate diverticulosis noted in the left colon 2. Small sessile polyp was found in the right colon; polypectomy was performed with a cold snare 3. Small internal hemorrhoids RECOMMENDATIONS: 1. avoid NSAIDS for 2 weeks 2. await biopsy results 3. follow-up: office 2 week(s) 4. Monitor for any evidence of rectal bleeding. 5. hemorrhoidal hygiene 6. increase dietary water 7. low fiber / diverticular diet RECALL: for Colonoscopy, pending biopsy results. Eulogio Mac DR eSigned: Eulogio Mac DR 09/10/2020 9:31 AM cc: CPT CODES: ICD9 CODES: PATIENT NAME: Kain Riley MR#: [id number]
[2020-09-10 11:46] VITALS: TEMP 97.4
[2020-09-10 11:48] VITALS: BP 90/66; O2SAT 98
== END 2020-09-10 10:25 | disposition home or self-care (01) ==
LOC: OR 08:08
PROVIDERS: ATTEND Surgery
PROC: 0DBF8ZX Excision of Right Large Intestine, Via Natural or Artificial Opening Endoscopic, Diagnostic (ICD-10-PCS; principal; 2020-09-10 09:15)
DX: Z12.11 Encounter for screening for malignant neoplasm of colon (principal); K57.30 Diverticulosis of large intestine without perforation or abscess without bleeding; K64.8 Other hemorrhoids; Z20.828 Contact with and (suspected) exposure to other viral communicable diseases
CPT/HCPCS: 88305; J2250; J2704; J7120; U0002

== ENCOUNTER → 2020-09-29 | Day surgery (SDC) | payer SELFPAY ==
[~2020-09-29] MED LIST: BUPIVACA 0.25%/EPI 0.0005% MDV 50 ML VIAL ONE; CEFAZOLIN/SWI 1gm 1 GM/10 ML SYR ONE; DIAZEPAM 5 MG TABLET ONE; DIAZEPAM 5 MG TABLET PO ONE; EPHEDRINE SULF 50 MG/ML VIAL ONE; FENTANYL CITR 100 MCG/2 ML ONE; HYDROCODONE/APAP 5/325 MG TAB ONE; KETOROLAC 30 MG/ML INJ ONE; LIDOCAINE 2% MPF 5 ML VIAL ONE; MEPERIDINE HCL 25 MG/ML SYR ONE; MIDAZOLAM HCL 2 MG/2 ML INJ ONE; ONDANSETRON 4 MG/2 ML VIAL ONE; ROCURONIUM 50 MG/5 ML VIAL IV ONE; Ringers Lactate 1,000 ML IV ONE; dexAMETHasone 4 MG/ML VIAL ONE; propofoL 200 MG/20 ML VIAL IV ONE
--- OUTSIDE RECORDS SUMMARY | 2020-09-29 10:18 | XMS REPORT | Clinical Summary ---
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
--- OUTSIDE RECORDS SUMMARY | 2020-09-29 10:21 | XMS REPORT | Continuity of Care Document ---
:1960 Author Organization [facility] Care Team Providers Name Role Phone [facility] Unavailable Un available Problems Problem Status Onset Classification Date Comments Sour e Date Reported Pathological 12/03/19 06/17/2019 Christos as fracture, other 19 [facility] site, initial Center encounter for fracture Encounter for 10/31/20 [place]13[place] removal of Medical internal fixation Ce nter device OTHER CHRONIC Active 09/30/20 Christos as OSTEOMYELITIS, 18 Medic al OTHER SITE Center FOLLOW VISIT Active 09/13/20 [facility] Other acute 07/13/20 01/22/2019 [facility] osteomyelitis, 18 Medic al other site Center FOLLOW UP Active 01/22/[address] OSTEOMYEKITIS Active 01/10/20 Christos as [address] [place] [address] Center SDF Active 01/10/[address] TOOTH ABSCESS Active 12/25/[address] LEFT FACIAL MASS Active 09/26/20 [facility] SWELLING [address] [place] [address] F/U Active 08/31/[address] DENTAL ABSCESS Active 08/22/[address] LT SUBLINGUAL Active 08/22/20 Christos as ABSCESS [address] [place] [address] 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, [facility] s neoplasm of skin all lesions M edical (disorder) [facility] Problem 06/17[facility]2019 when pt was [facility] spotted fever 10 Medica l (disorder) Center,[facility] 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 Medical (disorder) Center,[facility] Other specified 06/17/2019 [facility] postprocedural Medic al states Center Inflammatory 12/19/2018 Christ[facility] as conditions of Medica l jaws Center Personal history 12/19/2018 [facility] of nicotine Medical dependence Center Fracture of ramus 01/22/2019 [facility] of left mandible, [place] dical subsequent Center encounter for fracture with nonunion Nicotine 06/17/2019 [facility] dependence, Medical cigarettes, Center uncomplicated Osteomyelitis, 06/17/2019 [facility] [place] unspecified Medical Center Pathological 04/26/2018 Christos as fracture in other [place] dical disease, other Cente r site, initial encounter for fracture Moderate 04/26/2018 [facility] protein-calorie Medi bang malnutrition Center Cellulitis and 04/26/2018 [facility] [place] abscess of mouth [facility] Center Body mass index 04/26/2018 [facility] (BMI) 19 or less, [place] dical adult Center Retained dental 04/26/2018 [facility] root Medical [place] Cocaine abuse, 04/26/2018 [facility] [place] uncomplicated Medica l Center Other assisted 06/17/2019 [facility] (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 Medic al therapy Center CELLULITIS AND Active [facility] [place] ABSCESS OF MOUTH [facility] OSTEOMYELITIS OF Active [facility] UNSPECIFIED ORBIT [place] dical Center ILLNESS, Active [facility] Medical Center Medications Medication Details Route Status Patient Ordering Order Source Instructions Provider Date midazolam (ANES) Route: IV, Inactive [facility] Drug form: 2018 Medical SOLN, ONCE, Center Stop date: 10/23/18 14:00:00 NET UI DEVELOPER chlorhexidine 0.018 gm = 15 Active 10/23[facility] [place] gluconate 1.2 MG/ML mL, PO, [...] as No Longer Christos as Narcan Active [address] [place] [address] Flumazenil Notes: (Same No Longer Christos as as: Romazicon) Active 2018 Medical Center Acetaminophen Notes: Max [place]er [place] acetaminophen Active 2018 Medical 4000 mg/day (4 Center gm/day). (Same as: Tylenol Extra Strength) Ketorolac 4 days No Longer Christos as MEDICATION Active 2018 Medical WASTE Center Product Size: 30 mg Product Wasted: _0__ mg Fentanyl Notes: (Same No Longer [facility] as: Sublimaze) Active 2018 Medical Preservative Center free. Hydromorphone Notes: Same as No Longer [facility] Dilaudid Active 2018 Medical Center Oxycodone Notes: (Same [place] Longer [place] as: Active 2018 [facility] 'Roxicodone) Center Dexamethasone Notes: No Longer [place] Concentration: Active 2018 Medical 4mg/ml Center Ondansetron Notes: ([place] as: Zofran) Active 2018 Medical MEDICATION Center WASTE Product Size: 4 mg Product Wasted: __0_ mg Calcium Chloride 1,000 mL, No Longer [facility] 0.0014 MEQ/ML / Rate: 125 Active 2018 Medica l Potassium Chloride ml/hr, Infuse Center 0.004 MEQ/ML / over: 8 hr, Sodium Chloride Route: IV, 0.103 MEQ/ML / Dosing Weight Sodium Lactate 68.182 kg, 0.028 MEQ/ML Total Volume: Injectable Solution 1,000, Start date: 10/23/18 13:49:00 NET UI DEVELOPER, Duration: 30 day, Stop date: 11/22/18 13:48:00 NET UI DEVELOPER, 1.87, m2 hydromorphone Route: IV, Inactive Christos as (ANES) Drug form: 2018 Medical INJ, ONCE, Center Stop date: 10/23/18 13:45:00 NET UI DEVELOPER dexamethasone Route: IV, Inactive Christ[place] as (ANES) Drug form: 2018 Medical INJ, ONCE, Center Stop date: 10/23/18 13:45:00 NET UI DEVELOPER ondansetron (ANES) Route: IV, Inactive [facility] [place] Drug form: 2018 Medical INJ, ONCE, Center Stop date: 10/23/18 13:45:00 NET UI DEVELOPER phenylephrine Route: IV, Inactive [place] as (ANES) Drug form: 2018 Medical INJ, ONCE, Center Stop date: 10/23/18 13:20:00 NET UI DEVELOPER Isolyte S PH 7.4 Route: IV, Inactive [place] (ANES) 500 mL Total Volume: 2017 Medi bang 500, Start Center date: 10/23/18 13:16:00 NET UI DEVELOPER, Stop date: 10/23/18 14:16:00 NET UI DEVELOPER acetaminophen Route: IV, Inactive Christos as (ANES) 10 mg Drug form: 2018 Medical INJ, Start Center date: 10/23/18 13:10:00 NET UI DEVELOPER, Stop date: 10/23/18 14:10:00 NET UI DEVELOPER ePHEDrine (ANES) Route: IV, Inactive [place] Drug form: 2018 Medical INJ, ONCE, Center Stop date: 10/23/18 13:05:00 NET UI DEVELOPER ceFAZolin (ANES) Route: IV, Inactive [place] Drug form: 2018 Medical INJ, ONCE, Center Stop date: 10/23/18 12:55:00 NET UI DEVELOPER fentaNYL (ANES) Route: IV, Inactive [place] Drug form: 2018 Medical INJ, ONCE, Center Stop date: 10/23/18 12:46:00 NET UI DEVELOPER succinylcholine Route: IV, Inactive [place] (ANES) Drug form: 2018 Medical INJ, ONCE, Center Stop date: 10/23/18 12:46:00 NET UI DEVELOPER propofol (ANES) Route: IV, Inactive 10/23[facility] [place] Drug form: 2018 Medical INJ, ONCE, Center Stop date: 10/23/18 12:46:00 NET UI DEVELOPER lidocaine (ANES) Route: IV, Inactive 10/23[facility] [place] Drug form: 2018 Medical INJ, ONCE, Center Stop date: 10/23/18 12:45:00 NET UI DEVELOPER Lactated Ringers Route: IV, Inactive 10/23[facility] [place] Injection IV (ANES) Total Volume: 2017 Medical 1000 mL 1,000, Start Center date: 10/23/18 12:02:00 NET UI DEVELOPER, Stop date: 10/23/18 13:02:00 NET UI DEVELOPER ceFAZolin + sterile Notes: (Same No Longer 10/23 [place] water 20 mL As: Ancef, Active 2018 Medical Kefzol) Center MEDICATION WASTE Product Size: 1000 mg Product Wasted: ___ mg Metronidazole 500 500 mg = 1 Active [place] MG Oral Tablet tab, PO, TID, 2018 Med ical [Flagyl] 0 Refill(s) [place] Amoxicillin PO, BID, 0 Active [place] Refill(s) 2018 [facility] Amoxicillin 875 MG See No Longer [facility] / Clavulanate 125 Instructions, Active 2018 Medical MG Oral Tablet 1 tab PO Q12H [address] [Augmentin 875-mg] one month, # 60 tab, 0 Refill(s), Pharmacy: [facility] [id number] ibuprofen 600 mg 600 mg = 1 No Longer [facility] oral tablet tab, PO, Q6H, Active 2018 Medica l PRN Pain or Center Fever, Take with food, X 10 day, # 40 tab, 0 Refill(s), Pharmacy: [facility] [id number] chlorhexidine 0.018 gm = 15 Active [place] gluconate 1.2 MG/ML mL, PO, BID, 2018 Medical Mouthwash [Peridex] swish and Ce nter spit; do not swallow, # 480 mL, 0 Refill(s), Pharmacy: [facility] [id number] Benadryl Notes: (Same Inactive [facility] as: Benadryl) [address] [place] [address] Amoxicillin 875 MG Notes: With No Longer [place] / Clavulanate 125 food. (Same Active 2017 Me dical MG Oral Tablet as: Augmentin Mimi ter [Augmentin 875-mg] 875) Alprazolam 0.5 MG Notes: With Inactive 01/17/ H [place] Oral Tablet [Xanax] food or milk 2018 Medical (Same as: Center Xanax) Triazolam 0.25 mg, Inactive [facility] Route: PO, 2018 Medical Drug form: Center TAB, ONCE, Dosing Weight 68.182, kg, PRN Agitation, Start date: 01/17/18 9:26:00 NET UI DEVELOPER Benadryl Notes: (Same Inactive [facility] as: Benadryl) [address] [place] [address] 12 HR Clonidine Notes: (Same No Longer H [place] Hydrochloride 0.1 As: Catapres) Active 2018 Medical MG Extended Release Cent er Tablet Ativan Notes: (Same Inactive [facility] as: Ativan) 2018 Medical Center Flagyl Notes: (Same No Longer [facility] as: Flagyl) Active 2018 Medical Avoid alcohol. Center Rocephin Notes: (Same No Longer [facility] As: Rocephin). Active 2018 Medical [...] Wasted: ___ mg Ativan Notes: (Same Inactive [facility] as: Ativan) 2018 [facility] Center Ativan Notes: (Same No Longer [facility] as: Ativan) Active 2018 Medical Center Lidocaine 25 MG/ML Notes: Apply Inactive [place] / Prilocaine 25 to desired 2018 Medic al MG/ML Topical Cream area 2 hrs C enter [EMLA] prior to needle insertion. (Same as: Emla) Pain Ease topical 1 spray, Inactive [place] spray Route: TOP, 2018 Medical Dosing Weight Center 68.182, kg, ONCE, Start date: 01/13/18 5:59:00 NET UI DEVELOPER, Stop date: 01/13/18 5:59:00 NET UI DEVELOPER Amicar 4 gm, Route: Inactive [place] S&SPIT, Q8H, 2018 Medical Dosing Weight Center 68.182, kg, Start date: 01/12/18 16:00:00 NET UI DEVELOPER, Duration: 30 day, Stop date: 02/11/18 8:00:00 CDT Tranexamic acid Tranexamic No Longer [place] 50mg /ml oral acid 50mg /ml Active 2017 Medi bang solution oral solution, Center 10 mL, Drug form: MISC, Route: S&SPIT, Q8H, 01/12/18 12:00:00 NET UI DEVELOPER, Stop date: 02/11/18 4:00:00 CDT Unasyn Notes: Dosing No Longer [place] based on Active 2018 Medical Ampicillin Center component (Same as: Unasyn) Nicotine Notes: (Same No Longer [place] as: Habitrol) Active 2018 Medical "Remove old Center patch before application of new patch" WASTE: F/P - P Waste Black; E - P Waste Black chlorhexidine Notes: (Same No Longer [place] gluconate 1.2 MG/ML As: Peridex) Active 2017 Medical Mouthwash [Peridex] Cent er Beneprotein 7 gm Notes: (Same No Longer [place] pkt as: Active 2018 Medical Beneprotein) Center Ibuprofen Notes: (Same [place] Longer [place] as: Motrin) Active 2018 Medical "Do Not Crush" Center Take with food. Lovenox Notes: (Same No Longer [place] as: Lovenox) Active 2018 Medical Center Unasyn Notes: Dosing Inactive [place] based on 2018 Medical Ampicillin Center component (Same as: Unasyn) Ondansetron Notes: (Same [place] Long[place] as: Zofran) Active 2018 Medical MEDICATION Center WASTE Product Size: 4 mg Product Wasted: ___ mg Benadryl Notes: (Same No Longer [facility] as: Benadryl) Active 2018 Medical Center clonazePAM 0.5 mg 0.5 mg = 1 Active [facility] oral tablet tab, PO, TID, 2017 Medica l # 90 tab, 0 Center Refill(s) tizanidine 6 mg 6 mg = 1 cap, Active [place] oral capsule PO, TID, 0 2018 Medical Refill(s) Center pregabalin 50 MG 100 mg = 2 Active [facility] [place] Oral Capsule cap, PO, 2018 Medical [Lyrica] Daily, 0 Center Refill(s) Tylenol Notes: Max No Longer [place] acetaminophen Active 2018 Medical 4000 mg/day (4 Center gm/day). (Same as: Tylenol Extra Strength) Morphine Notes: (Same No Longer [facility] as:MORPhine Active 2017 Medical Sulfate) Center albuterol (ANES) Route: Inactive Christos as INHALATION, 2018 Medical Drug form: Center AERO/A, ONCE, Stop date: 01/11/18 10:29:00 NET UI DEVELOPER ondansetron (ANES) Route: IV, Inactive [facility] Drug form: 2017 Medical INJ, ONCE, Center Stop date: 01/11/18 10:21:00 NET UI DEVELOPER acetaminophen Route: IV, Inactive Christos as (ANES) 10 mg Drug form: 2017 Medical INJ, Start Center date: 01/11/18 9:38:00 NET UI DEVELOPER, Stop date: 01/11/18 10:38:00 NET UI DEVELOPER ceFAZolin (ANES) Route: IV, Inactive [facility] Drug form: 2017 Medical INJ, ONCE, Center Stop date: 01/11/18 9:21:00 NET UI DEVELOPER Flumazenil Notes: (Same [place] as: Romazicon) 2018 Medical Center Morphine Notes: (Same Inactive [facility] as:MORPhine 2018 Medical Sulfate) Center Oxycodone Notes: (Same Inactive 01/11[facility] as: 2018 [facility] Roxicodone) Center Ondansetron Notes: (Same Inactive Christos as as: Zofran) 2018 Medical MEDICATION Center WASTE Product Size: 4 mg Product Wasted: ___ mg Naloxone Notes: (Same Inactive [facility] as: Narcan) 2018 [facility] Center dexmedetomidine Route: IV, Inactive [place] (ANES) Drug form: 2017 Medical INJ, ONCE, Center Stop date: 01/11/18 9:07:00 NET UI DEVELOPER dexamethasone Route: IV, Inactive 01/11[facility] Christos as (ANES) Drug form: 2017 Medical INJ, ONCE, Center Stop date: 01/11/18 8:51:00 NET UI DEVELOPER famotidine (ANES) Route: IV, Inactive 01/11[facility] [place] Drug form: 2018 Medical INJ, ONCE, Center Stop date: 01/11/18 8:45:00 NET UI DEVELOPER hydromorphone Route: IV, Inactive 01/11[facility] Christso as (ANES) Drug form: 2017 Medical INJ, ONCE, Center Stop date: 01/11/18 8:40:00 NET UI DEVELOPER rocuronium (ANES) Route: IV, Inactive 01/11[facility] [place] Drug form: 2017 Medical INJ, ONCE, Center Stop date: 01/11/18 8:40:00 NET UI DEVELOPER fentaNYL (ANES) Route: IV, Inactive [place] Drug form: 2018 Medical INJ, ONCE, Center Stop date: 01/11/18 8:40:00 NET UI DEVELOPER midazolam (ANES) Route: IV, Inactive [facility] Drug form: 2018 Medical SOLN, ONCE, Center Stop date: 01/11/18 8:40:00 NET UI DEVELOPER lidocaine (ANES) Route: IV, Inactive [facility] Drug form: 2018 Medical INJ, ONCE, Center Stop date: 01/11/18 8:40:00 NET UI DEVELOPER propofol (ANES) Route: IV, Inactive [place] Drug form: 2018 Medical INJ, ONCE, Center Stop date: 01/11/18 8:40:00 NET UI DEVELOPER Lactated Ringers Route: IV, Inactive [facility] Injection IV (ANES) Total Volume: 2017 Medical 1000 mL 1,000, Start Center date: 01/11/18 7:32:00 NET UI DEVELOPER, Stop date: 01/11/18 8:32:00 NET UI DEVELOPER Diphenhydramine Notes: (Same No Longer [facility] as: Benadryl) Active 2018 Medical [place] Tylenol Notes: Infuse No Longer [facility] over [address] [place] [address] Do Center not exceed 4gm/day of acetaminophen MEDICATION WASTE Product Size: 1000 mg Product Wasted: ___ mg Lyrica Notes: Same as No Longer [place] Lyrica Active 2018 [facility] Amoxicillin 875 MG 875 mg = 1 Active [facility] / Clavulanate 125 tab, PO, Q12H, 2017 Medical MG Oral Tablet X 7 day, # [address] [Augmentin 875-mg] tab, 0 Refill(s), Pharmacy: [facility] [id number] Motrin 600 mg oral 600 mg = 1 Active [place] tablet tab, PO, Q6H, 2017 Medical PRN Pain, take Center with food, # 30 tab, 0 Refill(s), Pharmacy: [facility] [id number] tramadol 50 mg = 1 tab, Active [place] hydrochloride 50 MG PO, Q4H, PRN 2017 Medical Oral Tablet Pain, X 10 Center day, # 30 tab, 0 Refill(s) Acetaminophen 500 1,000 mg = 2 Active [place] MG Oral Tablet tab, PO, BID, 2017 Med ical [Tylenol] PRN Pain, X 10 Center day, # 50 tab, 0 Refill(s), Pharmacy: [facility] [id number] chlorhexidine 0.018 gm = 15 Active [place] gluconate 1.2 MG/ML mL, PO, BID, 2017 Medical Mouthwash [Peridex] swish and Ce nter spit; do not swallow, # 480 mL, 0 Refill(s), Pharmacy: [facility] [id number] neostigmine (ANES) Route: IV, Inactive [place] Drug form: 2016 Medical INJ, ONCE, Center Stop date: 10/03/17 9:18:00 NET UI DEVELOPER glycopyrrolate Route: IV, Inactive [place] (ANES) Drug form: 2016 Medical INJ, ONCE, Center Stop date: 10/03/17 9:18:00 NET UI DEVELOPER dexmedetomidine Route: IV, Inactive [place] (ANES) Drug form: 2016 Medical INJ, ONCE, Center Stop date: 10/03/17 9:06:00 NET UI DEVELOPER ondansetron (ANES) Route: IV, Inactive [facility] Drug form: 2016 Medical INJ, ONCE, Center Stop date: 10/03/17 9:06:00 NET UI DEVELOPER ceFAZolin (ANES) Route: IV, Inactive [facility] Drug form: 2016 Medical INJ, ONCE, Center Stop date: 10/03/17 9:04:00 NET UI DEVELOPER rocuronium (ANES) Route: IV, Inactive [facility] Drug form: 2016 Medical INJ, ONCE, Center Stop date: 10/03/17 8:29:00 NET UI DEVELOPER propofol (ANES) Route: IV, Inactive [place] Drug form: 2016 Medical INJ, ONCE, Center Stop date: 10/03/17 8:29:00 NET UI DEVELOPER dexamethasone Route: IV, Inactive Christos as (ANES) Drug form: 2016 Medical INJ, ONCE, Center Stop date: 10/03/17 8:29:00 NET UI DEVELOPER fentaNYL (ANES) Route: IV, Inactive [place] Drug form: 2016 Medical INJ, ONCE, Center Stop date: 10/03/17 8:29:00 NET UI DEVELOPER midazolam (ANES) Route: IV, Inactive [facility] Drug form: 2016 Medical SOLN, ONCE, Center Stop date: 10/03/17 8:29:00 NET UI DEVELOPER lidocaine (ANES) Route: IV, Inactive [facility] Drug form: 2017 Medical INJ, ONCE, Center Stop date: 10/03/17 8:29:00 NET UI DEVELOPER acetaminophen Route: IV, Inactive Christos as (ANES) 10 mg Drug form: 2016 Medical INJ, Start Center date: 10/03/17 8:25:00 NET UI DEVELOPER, Stop date: 10/03/17 9:25:00 NET UI DEVELOPER Lactated Ringers Route: IV, Inactive [facility] Injection IV (ANES) Total Volume: 2016 Medical 1000 mL 1,000, Start Center date: 10/03/17 7:34:00 NET UI DEVELOPER, Stop date: 10/03/17 8:34:00 NET UI DEVELOPER gabapentin 300 MG 300 mg = 1 Active [place] Oral Capsule cap, PO, Q8H, 2017 Medic [...] Amoxicillin 875 MG 1 tab, PO, Active [place] / Clavulanate 125 Q12H, X 10 2017 [...] called to pharmacy Clonidine Notes: (Same Inactive [place] Hydrochloride 0.1 As: Catapres) 2017 Medical MG Oral Tablet Center Amoxicillin 875 MG Notes: With No Longer [facility] / Clavulanate 125 food. (Same Active 2016 Me dical MG Oral Tablet as: Augmentin Mimi ter [Augmentin 875-mg] 875) olanzapine Notes: (Same No Longer Christos as as: ZyPREXA) Active 2017 [facility] Seroquel Notes: (Same Inactive [place] as: SEROquel) 2017 [facility] Center Naprosyn Notes: (Same No Longer [facility] as: Naprosyn) Active 2017 Medical Take with Center food. gabapentin 300 MG Notes: (Same No Longer [facility] Oral Capsule as: Neurontin) Active 2016 [facility] Tetrahydrocannabino Notes: (Same No Longer 08/25 [facility] l as: Marinol) Active 2017 [facility] Non-Formulary Center Drug. Dexmedetomidine 24 hours No Longer [place] Active 2017 [facility] Thiamine 200 mg, Route: No Longer Christos as IV, Daily, Active 2017 Medical Dosing Weight Center 67.273, kg, Start date: 08/24/17 9:00:00 CDT, Duration: 30 day, Stop date: 09/22/17 9:00:00 CDT Famotidine 20 MG Notes: (Same No Longer [place] Oral Tablet as: Pepcid) Active 2017 [facility] Vitamin B 12 Notes: (Same No Longer [place] As: Vitamin Active 2016 [facility] B12) [place] sterile water 1.2 mL, Route: No Longer H [place] MISC, Drug Active 2016 Medical Form: INJ, Center Q2H, PRN See Nurse's Notes, Start date: 08/24/17 8:24:00 CDT, Duration: 30 day, Stop date: 09/23/17 8:23:00 NET UI DEVELOPER pregabalin Notes: (Same No Longer Christos as as: Lyrica) Active 2017 [facility] Geodon Notes: No Longer [facility] Reconstitute Active 2017 [facility] with 1.2 ml of [place] sterile water. Final concentration = 20 mg/1ml. Maximum 40 mg/24 hours (Same As: Sonja). MEDICATION WASTE Product Size: 20 mg Product Wasted: ___ mg Acetaminophen Notes: Max [place] Longer [place] acetaminophen Active 2017 [facility] 4000 mg/day (4 Center gm/day). (Same as: Tylenol Extra Strength) Baclofen Notes: (Same No Longer [place] As: Lioresal) Active 2017 [facility] Docusate 100 mg, Route: [place]active [place] PO, Drug form: 2016 [facility] CAP, Q12H, Center Dosing Weight 67.273, kg, Start date: 08/23/17 21:00:00 CDT, Duration: 30 day, Stop date: 09/22/17 9:00:00 CDT Mirtazapine Notes: (Same No Longer [place] as:Remeron) Active 2017 [facility] olanzapine 10 mg, Route: Inactive Christos as SL, Drug form: 2016 [facility] TABDIS, Center Bedtime, Dosing Weight 67.273, kg, Start date: 08/23/17 21:00:00 CDT, Duration: 30 day, Stop date: 09/21/17 21:00:00 CDT docusate Notes: (Same No Longer [place] as: Colace) Active 2017 [facility] Reglan Notes: (Same No Longer [facility] as: Reglan) Active 2017 [facility] Geodon Notes: No Longer [facility] Reconstitute Active [address] [place] [address] with 1.2 ml of Center sterile water. Final concentration = 20 mg/1ml. Maximum 40 mg/24 hours (Same As: Sonja). MEDICATION WASTE Product Size: 20 mg Product Wasted: ___ mg pregabalin Notes: Same as No Longer [place] Lyrica Active 2017 [facility] Enoxaparin Notes: (Same No Longer Christos as as: Lovenox) Active [address] [place] [address] PHOS-NaK Notes: (Same No Longer [facility] as: Phos-NaK) Active [address] [place] [address] Each 1.5 gm Center pkt has 250mg phosphorous. Mix w/2.5oz water and stir. mirtazapine 15 mg 0 Refill(s) No Longer [facility] oral tablet Active [address] [place] [address] pregabalin 50 MG 50 mg = 1 cap, No Longer [facility] Oral Capsule PO, TID, [address] [place] [address] [Lyrica] Refill(s) Center baclofen 20 mg oral 0 Refill(s) No Longer [facility] tablet Active [address] [place] [address] OLANZapine 10 mg 0 Refill(s) No Longer H [place] oral tablet, Active [address] [place] [address] disintegrating Center midazolam 50mg/ NS Notes: (Same Inactive [facility] 50ml drip as: Versed) 2017 Medical (premixed) 50 mg [place] midazolam 50mg/ NS Notes: (Same Inactive [facility] 50ml drip as: Versed) [facility] Medical (premixed) 50 mg Center Versed 3 mg, Route: Inactive [facility] DARION JONES, 2017 Medical Dosing Weight Center 67.273, kg, Start date: 08/23/17 15:00:00 CDT, Duration: 30 day, Stop date: 09/22/17 14:59:00 CDT Midazolam 100 mg, 100 Inactive [facility] mL, Rate: 2017 Medical Titrate, Start Center Dose: 1 mg/hr, Titration: Rebolus 1 mg IV and/or Titrate infusion by 1 mg/hour every 30 minutes, Goal(s): RASS 0, Max Dose: 10 mg/hr, Route: IV, Dosing Weight 67.273 kg, Total Volume: 100, Start date: 08/23/17 13:5... Tramadol Notes: Not to No Longer [place] exceed Active 2017 Medical 400mg/day. Center (Same As: [facility]) ocular lubricant Notes: (Same No Longer [place] as: Active 2017 Medical Lacri-Lube, Center Duratears Naturale, Artificial Tears, and Tears Again ) senna 8.6 mg oral Notes: (Same No Longer [place] tablet as: Senokot) Active 2017 [facility] Center Miralax Notes: No Longer Dissolve in 8 Active 2017 Medical oz of water or Center juice. (Same as: Miralax) Thiamine Notes: (Same No Longer [place] As: Vitamin Active 2016 [facility] B1) [place] Folic Acid Notes: (Same No Longer Christos as as: Folvite) Active 2017 [facility] Valium Notes: (Same Inactive [place] as: Valium) 2017 [facility] [place] Clonidine Notes: (Same No Longer Christos s As: Catapres) Active 2017 [facility] Tetrahydrocannabino 5 mg, Route: Inactive [place] l NG, Drug form: 2017 Medical CAP, [id number], Center Dosing Weight 67.273, kg, Start date: 08/23/17 9:19:00 CDT, Duration: 30 day, Stop date: 09/21/17 21:19:00 CDT Methadone Notes: (Same No Longer Christosa s as: Dolophine) Active 2017 [facility] Midazolam 2 mg, Route: Inactive [place] IVP, ONCE, 2017 Medical Dosing Weight Center 67.273, kg, Start date: 08/23/17 9:16:00 CDT, Stop date: 08/23/17 9:16:00 CDT Famotidine Notes: (Same No Longer [place] as as: Pepcid) Active 2017 [facility] chlorhexidine Notes: (Same No Longer [place] [...] Longer [place] acetaminophen Active 2017 [facility] 4000 mg/day (4 Center gm/day). (Same as: Tylenol Extra Strength) Unasyn Notes: Dosing No Longer [place] based on Active 2016 [facility] Ampicillin Center component (Same as: Unasyn) Flagyl Notes: (Same Inactive [place] as: Flagyl) 2017 [facility] Avoid alcohol. Center Enoxaparin Notes: (Same Inactive [...] being intubated (unless the nurse is a WET PAN OPERATOR). Same as: Diprivan Penicillin V 500 mg = 1 No Longer [place]os as Potassium 500 MG tab, PO, TID Active 2016 [place] Oral Tablet [place] mirtazapine 15 mg 15 mg = 1 tab, No Longer 08/23 [place] oral tablet PO, Bedtime Active 2016 [facility] baclofen 20 mg oral 20 mg = 1 tab, No Longer [place] tablet PO, Bedtime Active 2016 [facility] OLANZapine 10 mg 10 mg = 1 tab, No Longer [place] oral tablet, SL, Bedtime Active 2016 [facility] Center ibuprofen 800 mg 800 mg = 1 No Longer [place] oral tablet tab, PO, Q8H, Active 2016 Medica l PRN Fever or Center Pain, Take with food sugammadex Notes: (Same Inactive Christosa s as: Bridion) [address] [place] [address] rocuronium (ANES) Route: IV, Inactive [place] Drug [...] Ativan Notes: (Same Inactive [place] as: Ativan) [address] [place] [address] Center Unasyn Notes: Dosing Inactive [facility] based on [address] [place] [address] Ampicillin Center component (Same as: Unasyn) Unasyn Notes: Dosing Inactive [facility] based on [address] [place] [address] Ampicillin Center component (Same as: Unasyn) NS (Bolus) IV 1,000 mL, [place] 1,000 ml/hr, [facility] Medical Infuse Over: 1 Center hr, Route: IV, ONCE, Priority: STAT, Dosing Weight 68.182 kg, Start date: 08/22/17 14:40:00 CDT, Duration: 1 doses or times, Stop date: 08/22/17 14:40:00 CDT Morphine 4 mg, Route: Inactive IVP, ONCE, [address] [place] [address] Dosing Weight [facility] 68.182, kg, Priority: STAT, Start date: 08/22/17 12:41:00 CDT, Stop date: 08/22/17 12:41:00 CDT Clindamycin Notes: Inactive (clindamycin [address] [place] [address] 150 mg/1 ml [facility] (600 mg/4 ml VL) INJ) (Same As: Cleocin) Flagyl 500 mg, Route: Inactive IVPB, ONCE, [address] [place] [address] Dosing Weight [facility] 68.182, kg, Priority: STAT, Start date: 08/22/17 10:26:00 CDT, Stop date: 08/22/17 10:26:00 CDT, ABX Indication: Skin/Soft Tissue Infection Cipro Notes: Do not Inactive refrigerate 2016 [facility] Ativan Notes: (Same Inactive as: Ativan) 2016 [facility] Zofran Notes: (Same Inactive as: Zofran) 2016 [facility] MEDICATION City WASTE Product Size: 4 mg Product Wasted: ___ mg Morphine 4 mg, Route: Inactive IVP, ONCE, 2016 [facility] Dosing Weight [facility] 68.182, kg, Priority: STAT, Start date: 08/22/17 9:01:00 CDT, Stop date: 08/22/17 9:01:00 CDT NS (Bolus) IV 1,000 mL, Inactive 1,000 ml/hr, 2016 [facility] Infuse Over: 1 City hr, Route: IV, 1,000, Drug form: INJ, ONCE, Priority: STAT, Dosing Weight 68.182 kg, Start date: 08/22/17 9:01:00 CDT, Duration: 1 doses or times, Stop date: 08/22/17 9:01:00 CDT Allergies, Adverse Reactions, Alerts Substance Category Reaction Severity Reaction Status Date Comments S ource type Reported Wellbutrin Assertion Drug Active [facility] Immunizations No Data Provided for This Section Results Order Name Results Value Reference Date Interpretation Comments Brandy rce [place] BLOOD BANK Antibody Negative 10/23 [facility] RESULTS Scrn (10/23/18 8:27 AM) /2017 [facility] BLOOD BANK ABO/Rh O POS 10/23 [facility] RESULTS /2017 [facility] CHEM PANEL Calcium Lvl 8.9 8.5 - 10.5 01/15 [place] /2017 [facility] CHEM PANEL CO2 27 24 - 32 01/15 /2017 [facility] CHEM PANEL Sodium Lvl 145 135 - 145 01/15 /2017 [facility] CHEM PANEL Creatinine 0.70 0.50 - 01/15 [place] Lvl 1.40 /2017 [facility] CHEM PANEL Chloride Lvl 111 95 - 109 01/15 [place] [facility] CHEM PANEL Potassium 4.1 3.5 - 5.1 01/15 [facility] Lvl /2017 [facility] CHEM PANEL BUN 17 7 - 22 01/15 [facility] CHEM PANEL Glucose Lvl 89 70 - 99 01/15 [facility] CHEM PANEL eGFR 105 01/15 [facility] Comment: The Medical eGFR is Center [...] AGAP 11.1 10.0 - 01/[address] [place] [address] [facility] HEMATOLOGY Lymphocytes 26.8 20.0 - 01/[address] [place] [address] [facility] HEMATOLOGY Eosinophils 3.9 0.0 - 4.0 01/15 [facility] HEMATOLOGY Monocytes 7.0 2.0 - 12.0 01/15 [facility] HEMATOLOGY Segs-Bands # 4.2 1.5 - 8.1 01/15 [facility] HEMATOLOGY Basophils 0.6 0.0 - 1.0 01/15 [facility] HEMATOLOGY Lymphocytes 1.8 1.0 - 5.5 01/15 [place] # [facility] HEMATOLOGY Segs 61.7 45.0 - 01/[address] [place] [address] [facility] HEMATOLOGY Eosinophils 0.3 0.0 - 0.5 01/15 [place] # [facility] HEMATOLOGY Monocytes # 0.5 0.0 - 0.8 01/[address] [facility] HEMATOLOGY MCHC 34.4 32.0 - 01/[address] [facility] [place] [address] [facility] HEMATOLOGY RDW 12.2 11.5 - 01/15 [facility] [address] [facility] HEMATOLOGY MCH 31.8 27.0 - 01/[address] [facility] HEMATOLOGY Platelet 234 133 - 450 01/15 [facility] HEMATOLOGY MPV 8.4 7.4 - 10.4 01/15 [facility] HEMATOLOGY MCV 92.7 80.0 - 01/15 [facility] 94.[address] [facility] HEMATOLOGY WBC 6.8 3.7 - 10.4 01/15 [facility] HEMATOLOGY RBC 4.02 4.70 - 01/15 [facility] [address].10 [facility] HEMATOLOGY Hgb 12.8 14.0 - 01/15 [facility] [address] [facility] HEMATOLOGY Hct 37.3 42.0 - 01/15 [facility] [address] [facility] ELECTROLYTES AGAP 13.4 10.0 - 01/14 [facility] [address].0 [facility] ELECTROLYTES eGFR 107 01/14 Result Comment: [facility] eGFR is Center calculated using the CKD-EPI [...] Glucose Lvl 77 70 - 99 01/[address] [facility] [address] [facility] ELECTROLYTES Creatinine 0.67 0.50 - 01/14 [facility] Lvl 1.40 [facility] ELECTROLYTES BUN 16 7 - 22 01/14 [facility] ELECTROLYTES Sodium Lvl 142 135 - 145 01/14 [facility] ELECTROLYTES Chloride Lvl 109 95 - 109 01/14 [place] [facility] ELECTROLYTES Potassium 4.4 3.5 - 5.1 01/14 [place] L[place] /2017 [facility] Center ELECTROLYTES Calcium Lvl 8.6 8.5 - 10.5 01/14 [place] /2017 [facility] Center ELECTROLYTES CO2 24 24 - 32 01/14 /2018 [facility] HEMATOLOGY Segs 56.4 45.0 - 01/14 [place] 75.0 [facility] Center HEMATOLOGY Lymphocytes 30.9 20.0 - 01/14 [place] 40.0 [facility] HEMATOLOGY Monocytes 8.2 2.0 - 12.0 01/14 /2017 [facility] HEMATOLOGY Basophils 1.0 0.0 - 1.0 01/14 [place] [facility] HEMATOLOGY Eosinophils 3.5 0.0 - 4.0 01/14 [place] /2018 [facility] HEMATOLOGY Segs-Bands # 4.4 1.5 - 8.1 01/14 [facility] HEMATOLOGY Lymphocytes 2.4 1.0 - 5.5 01/14 [place] # /2018 Medical Center HEMATOLOGY Eosinophils 0.3 0.0 - 0.5 01/14 [place] # /2018 [facility] HEMATOLOGY Basophils # 0.1 0.0 - 0.2 01/14 [place] /2018 [facility] HEMATOLOGY Monocytes # 0.6 0.0 - 0.8 01/14 [place] /2018 [facility] HEMATOLOGY Hct 38.9 42.0 - 01/14 [place] 54.0 Medical Center HEMATOLOGY MCV 94.4 80.0 - 01/14 [place] 94.0 [facility] HEMATOLOGY MCH 31.8 27.0 - 01/14 [place] 31.0 [facility] HEMATOLOGY MCHC 33.7 32.0 - 01/[address] [place] [address] [facility] HEMATOLOGY RDW 13.0 11.5 - 01/14 [place] 14.5 [facility] HEMATOLOGY Platelet 234 133 - 450 01/14 [facility] HEMATOLOGY MPV 8.5 7.4 - 10.4 01/14 [place] [facility] HEMATOLOGY WBC 7.8 3.7 - 10.4 01/14 [facility] HEMATOLOGY RBC 4.12 4.70 - 01/[address] [place] [address] [facility] HEMATOLOGY Hgb 13.1 14.0 - 01/14 [facility] [address] [facility] ELECTROLYTES AGAP 9.1 10.0 - 01/13 [facility] [address] [facility] ELECTROLYTES eGFR 104 01/13 [facility] Comment: The Medical eGFR is Center [...] Glucose Lvl 81 70 - 99 01/13 [facility] s [facility] ELECTROLYTES Sodium Lvl 141 135 - 145 01/[address] [facility] ELECTROLYTES Creatinine 0.73 0.50 - 01/13 [facility] Lvl 1.40 [facility] ELECTROLYTES BUN 18 7 - 22 01/[address] ELECTROLYTES Calcium Lvl 8.7 8.5 - 10.5 01/[address] [place] [facility] ELECTROLYTES CO2 27 24 - 32 01/13 [facility] ELECTROLYTES Chloride Lvl 109 95 - 109 01/[address] [place] [facility] ELECTROLYTES Potassium 4.1 3.5 - 5.1 01/13 [facility] s Lvl [facility] HEMATOLOGY Segs-Bands # 5.8 1.5 - 8.1 01/[address] [facility] HEMATOLOGY Monocytes 6.7 2.0 - 12.0 01/[address] HEMATOLOGY Basophils 0.4 0.0 - 1.0 01/[address] HEMATOLOGY Lymphocytes 2.0 1.0 - 5.5 01/[facility]2017 [facility] HEMATOLOGY Eosinophils 1.6 0.0 - 4.0 01/13 s /2017 [facility] HEMATOLOGY Monocytes # 0.6 0.0 - 0.8 01/13 [facility] s [facility] HEMATOLOGY Eosinophils 0.1 0.0 - 0.5 01/13 [place] # /2017 [facility] HEMATOLOGY Segs 67.9 45.0 - 01/[address] [place] [address] [facility] HEMATOLOGY Lymphocytes 23.4 20.0 - 01/[address] [place] [address] [facility] HEMATOLOGY RBC 4.04 4.70 - 01/[address] [place] [address] [facility] HEMATOLOGY Hgb 12.9 14.0 - 01/[address] [place] [address] [facility] HEMATOLOGY Hct 37.9 42.0 - 01/[address] [place] [address] [facility] HEMATOLOGY MCV 94.0 80.0 - 01/[address] [place] [address] [facility] HEMATOLOGY MPV 8.5 7.4 - 10.4 01/13 [facility] HEMATOLOGY RDW 12.7 11.5 - 01/[address] [place] [address] [facility] HEMATOLOGY Platelet 218 133 - 450 01/13 [facility] HEMATOLOGY MCHC 34.0 32.0 - 01/[address] [place] [address] [facility] HEMATOLOGY MCH 32.0 27.0 - 01/[address] [place] [address] [facility] HEMATOLOGY WBC 8.5 3.7 - 10.4 01/13 [facility] BLOOD BANK ABO/Rh O POS 01/11 [facility] RESULTS [facility] BLOOD BANK Antibody Negative 01/11 [facility] RESULTS Scrn (01/11/18 1:36 AM) [facility] HEMATOLOGY Basophils # 0.1 0.0 - 0.2 01/11 [facility] CHEM PANEL Phosphorus 2.8 2.5 - 4.5 08/26 [facility] CHEM PANEL Magnesium 2.4 1.8 - 2.4 08/26 [facility] Lvl [facility] CHEM PANEL eGFR 109 08/26 Result [...] Chloride Lvl 106 95 - 109 08/26 [facility] CHEM PANEL CO2 30 24 - 32 08/26 [facility] CHEM PANEL Calcium Lvl 8.1 8.5 - 10.5 08/[address] [facility] CHEM PANEL AGAP 9.1 10.0 - 08/[address] [place] [address] [facility] CHEM PANEL Potassium 4.1 3.5 - 5.1 08/26 [facility] l [facility] CHEM PANEL Creatinine 0.64 0.50 - 08/[address] [place] [address] [facility] CHEM PANEL Sodium Lvl 141 135 - 145 08/26 [facility] CHEM PANEL Glucose Lvl 78 70 - 99 08/26 [facility] CHEM PANEL BUN 21 7 - 22 08/26 [facility] HEMATOLOGY MPV 8.4 7.4 - 10.4 08/26 [facility] HEMATOLOGY RDW 14.3 11.5 - 08/[address] [place] [address] [facility] HEMATOLOGY Platelet 357 133 - 450 08/26 [facility] HEMATOLOGY MCHC 32.5 32.0 - 08/[address] [place] [address] [facility] HEMATOLOGY MCV 97.2 80.0 - 08/[address] [place] [address] [facility] HEMATOLOGY MCH 31.6 27.0 - 08/[address] [place] [address] [facility] HEMATOLOGY Hct 33.0 42.0 - 08/[address] [place] [address] [facility] HEMATOLOGY Hgb 10.7 14.0 - 08/[address] [place] [address] [facility] HEMATOLOGY RBC 3.39 4.70 - 08/26 [place] 6.10 /2017 [facility] HEMATOLOGY WBC 13.7 3.7 - 10.4 08/26 [facility] HEMATOLOGY Eosinophils 0.2 0.0 - 0.5 08/26 [place] # [facility] HEMATOLOGY Monocytes # 1.3 0.0 - 0.8 08/[address] [facility] HEMATOLOGY Segs-Bands # 9.3 1.5 - 8.1 08/26 [facility] HEMATOLOGY Lymphocytes 2.8 1.0 - 5.5 08/26 [place] # [facility] HEMATOLOGY Monocytes 9.8 2.0 - 12.0 08/26 [facility] HEMATOLOGY Basophils 0.2 0.0 - 1.0 08/26 [facility] HEMATOLOGY Eosinophils 1.3 0.0 - 4.0 08/[address] [facility] HEMATOLOGY Lymphocytes 20.4 20.0 - 08/[address] [place] [address] [facility] HEMATOLOGY Segs 68.3 45.0 - 08/[address] [place] [address] [facility] ELECTROLYTES AGAP 10.0 10.0 - 08/[address] [place] [address] [facility] ELECTROLYTES Calcium Lvl 8.0 8.5 - 10.5 08/[address] [facility] ELECTROLYTES CO2 30 24 - 32 08/25 [facility] ELECTROLYTES eGFR 104 08/25 [facility] Comment: The Medical eGFR is Center [...] Chloride Lvl 110 95 - 109 08/25 [facility] ELECTROLYTES Potassium 4.0 3.5 - 5.1 08/25 [place] [facility] [facility] ELECTROLYTES Sodium Lvl 146 135 - 145 08/25 Medical Center ELECTROLYTES Glucose Lvl 105 70 - 99 08/25 a s [facility] [place] HEMATOLOGY WBC 13.8 3.7 - 10.4 08/25 [facility] [place] HEMATOLOGY Hgb 10.3 14.0 - 08/25 [place] 18.0 [facility] [place] HEMATOLOGY RBC 3.25 4.70 - 08/25 [place] 6.10 [facility] [place] HEMATOLOGY MCV 96.3 80.0 - 08/25 [place] 94.0 [facility] [place] HEMATOLOGY MCH 31.8 27.0 - 08/25 [place] 31.0 [facility] [place] HEMATOLOGY MCHC 33.0 32.0 - 08/25 [place] 36.0 [facility] [place] HEMATOLOGY Hct 31.3 42.0 - 08/25 [place] 54.0 [facility] [place] HEMATOLOGY MPV 8.5 7.4 - 10.4 08/25 [facility] HEMATOLOGY Platelet 358 133 - 450 08/25 [facility] HEMATOLOGY RDW 14.4 11.5 - 08/[address] [place] [address] [facility] ELECTROLYTES AGAP 13.7 10.0 - 08/[address] [place] [address] [facility] ELECTROLYTES CO2 30 24 - 32 08/24 [facility] ELECTROLYTES Chloride Lvl 108 95 - [...] Lvl 109 70 - 99 08/[address] [place] [facility] ELECTROLYTES eGFR 95 08/24 Result Comment: [...] BMI. HEMATOLOGY MCV 97.8 80.0 - 08/24 [facility] [address] [facility] HEMATOLOGY MCH 31.9 27.0 - 08/24 [facility] [address] [facility] HEMATOLOGY MCHC 32.7 32.0 - 08/24 [facility] [address] [facility] HEMATOLOGY Hct 30.8 42.0 - 08/24 [facility] [address] [facility] HEMATOLOGY Hgb 10.1 14.0 - 08/24 [facility] [address] [facility] HEMATOLOGY WBC 15.9 3.7 - 10.4 08/24 [facility] HEMATOLOGY RBC 3.15 4.70 - 08/[address] [place] [address] [facility] HEMATOLOGY MPV 9.0 7.4 - 10.4 08/24 [facility] HEMATOLOGY RDW 14.4 11.5 - 08/24 [facility] 14. [facility] HEMATOLOGY Platelet 305 133 - 450 08/24 [facility] CHEM PANEL Magnesium 2.1 1.8 - 2.4 08/23 [facility] Lvl [facility] CHEM PANEL Phosphorus 3.1 2.5 - 4.5 08/23 [facility] BLOOD BANK Antibody Negative 08/23 [facility] RESULTS Scrn (08/22/17 8:20 PM) /2016 [facility] BLOOD BANK ABO/Rh O POS 10/[address] [place] [facility] CHEM PANEL Lactic Acid 1.3 0.5 - 2.2 08/[address] [facility] CHEM PANEL Lactic Acid 0.8 0.5 - 2.2 08/22 [facility] ELECTROLYTES Sodium Lvl 142 135 - 145 08/22 [facility] ELECTROLYTES Chloride Lvl 103 95 - 109 08/22 [facility] ELECTROLYTES Calcium Lvl 9.1 8.5 - 10.5 08/22 [facility] ELECTROLYTES Potassium 3.9 3.5 - 5.1 08/22 [facility] ELECTROLYTES eGFR 98 08/22 [facility] Comment: [facility] eGFR is City calculated using the CKD-EPI [...] Glucose Lvl 81 70 - 99 08/22 [facility] ELECTROLYTES Albumin Lvl 2.7 3.5 - 5.0 08/22 [facility] ELECTROLYTES ALT 32 0 - 65 08/22 [facility] ELECTROLYTES CO2 27 24 - 32 08/22 [facility] ELECTROLYTES Creatinine 0.85 0.50 - 08/22 Lvl 1.40 [facility] ELECTROLYTES AST 27 0 - 37 08/22 [facility] ELECTROLYTES BUN 17 7 - 22 08/22 [facility] ELECTROLYTES Alk Phos 116 39 - 136 08/22 [facility] ELECTROLYTES Bili Total 0.4 0.2 - 1.3 08/22 [facility] ELECTROLYTES Total 6.9 6.4 - 8.4 10 [facility] ELECTROLYTES B/C Ratio 20 6 - 25 10 [facility] ELECTROLYTES AGAP 15.9 10.0 - 08/22 [facility] 20.0 [facility] ELECTROLYTES A/G Ratio 0.6 0.7 - 1.6 08/22 [facility] ELECTROLYTES Globulin 4.2 2.7 - 4.2 08/22 [facility] HEMATOLOGY MPV 9.2 7.4 - 10.4 10 [facility] HEMATOLOGY Platelet 318 133 - 450 10 [facility] HEMATOLOGY MCH 32.7 27.0 - 08/22 31.0 [facility] HEMATOLOGY MCHC 34.2 32.0 - 10 36.0 /2016 [facility] HEMATOLOGY RDW 14.0 11.5 - 08/22 14. [facility] HEMATOLOGY RBC 4.14 4.70 - 08/22 [facility] 6.10 [facility] HEMATOLOGY WBC 20.2 3.7 - 10.4 08/22 [facility] HEMATOLOGY MCV 95.7 80.0 - 08/22 94.0 /2016 [facility] HEMATOLOGY Hgb 13.6 14.0 - 08/22 18.0 [facility] HEMATOLOGY Hct 39.6 42.0 - 08/22 54.0 /2016 [facility] HEMATOLOGY Eosinophils 0.1 0.0 - 0.5 08/22 [facility] # /2016 [facility] HEMATOLOGY Monocytes # 1.9 0.0 - 0.8 08/22 [facility] HEMATOLOGY Segs-Bands # 17.1 1.5 - 8.1 08/22 [facility] HEMATOLOGY Lymphocytes 1.1 1.0 - 5.5 08/22 /2016 [facility] HEMATOLOGY Monocytes 9.5 2.0 - 12.0 08/22 [facility] HEMATOLOGY Eosinophils 0.5 0.0 - 4.0 08/22 [facility] HEMATOLOGY Basophils 0.1 0.0 - 1.0 08/22 [facility] HEMATOLOGY Segs 84.6 45.0 - 08/22 [facility] 75.0 /2016 [facility] HEMATOLOGY Lymphocytes 5.3 20.0 - 08/22 [facility] 40.0 [facility] Pathology Reports No Data Provided for This Section Diagnostic Reports Report Value Date Source Facial Bones wo Exam: CT face without contrast. 09/17/2018 [facility] contrast/w 3D CT INDICATION: Exposed hardware left [...] wo EXAM: CT FACE WITHOUT CONTRAST 03/14/2018 [facility] contrast CT DATE: 03/14/2018 11:04 AM CDT [...] Facial Bones wo contrast/w 3D CT 8 [facility] Medical contrast/w 3D CT DATE: 01/11/2018 2:54 PM [facility] ter INDICATION: - post op CT scan [...] wo CT FACIAL BONES WITHOUT CONTRAST 01/10/2018 [facility] contrast/w 3D CT DATE: 01/10/2018 at [facility] INDICATION: - acute osteomyelitis COMPARISON: CT [...] mm in thickness collection within the superficial surfboard maker space whi ch may represent a phlegmon. [...] CT OF THE NECK WITHOUT CONTRAST 2016 [facility] Medical contrast CT DATE: 09/06/2017 [...] DX EXAM: XR CHEST 1 VIEW 08/26/2017 [facility] edical DATE: 08/26/2017 3:00 AM CDT Cent [...] DX EXAM: XR CHEST 1 VIEW 08/25/2017 [facility] edical DATE: 08/25/2017 3:00 AM CDT Cent er INDICATION: - Intubated COMPARISON: 08/23/2017 TECHNIQUE: AP chest IMPRESSION: 1. Lines and tubes are stable. 2. Few scattered atelectati c changes bilaterally. Otherwise, lungs are clear. Costophrenic recesses are sharp. Cardiomediastinal silhouette within normal limits. Aortic atherosclerotic disease. 3. No acute osseous abnormalities. Chest 1view DX EXAM: XR CHEST 1 VIEW 08/23/2017 [facility] edical DATE: 08/23/2017 8:15 AM CDT Cent [...] for EXAM: XR ABDOMEN 1 VIEW 08/23/2017 [facility] Placement DX DATE: 08/23/2017 at 0648 hours [...] for EXAM: XR ABDOMEN 1 VIEW 08/23/2017 [facility] Placement DX DATE: 08/22/2017 11:45 PM CDT [...] for EXAM: XR CHEST 1 VIEW 08/23/2017 [facility] edical Placement DX DATE: 08/23/2017 12:49 AM [...] travenous contrast 08/22/2017 9:00 AM CDT 08/22/2017 [facility] contrast CT Clinical: Left tooth abscess with [...] into the left submandibular space. Also, left surfboard maker space intramuscular abscesses are present involving the [...] tongue, floor of mouth, left sublingual, left surfboard maker space phlegmons or abscesses, likely originating from [...] Value Date Comments Source [facility] 66.818 [facility] Rate 16 11/14/2018 [facility] bang Center Heart Rate 82 11/14/2018 [facility] Medica l Center Systolic (mm Hg) 107 11/14/2018 [facility] dical Center Diastolic (mm Hg) 76 11/14/2018 [facility] edical Center BMI Calculated 19.7 10/29/2018 [facility] bang Center Weight 67.727 10/29/2018 [place] [facility] Systolic (mm Hg) 119 10/29/2018 [facility] dical Center Diastolic (mm Hg) 86 10/29/2018 [facility] edical Center Height 185.42 cm 10/29/[facility] Heart Rate 80 10/29/2018 [place] [facility] Respitory Rate 16 10/29/2018 [facility] bang Center Heart Rate 63 10/23/2018 [facility] Medica l Center Systolic (mm Hg) 104 10/23/2018 [facility] dical Center Diastolic (mm Hg) 59 10/23/2018 [facility] Respitory Rate 17 10/23/2018 [facility] Respitory Rate 18 10/23/2018 [facility] Systolic (mm Hg) 100 10/23/2018 [facility] Diastolic (mm Hg) 64 10/23/2018 [facility] Respitory Rate 15 10/23/2018 [facility] Systolic (mm Hg) 107 10/23/2018 [facility] Diastolic (mm Hg) 64 10/23/2018 [facility] M edical Center Heart Rate [...] dical Center Diastolic (mm Hg) 85 09/17/2018 [facility] Heart Rate 73 09/17/2018 [place] [facility] Diastolic (mm Hg) 91 06/06/2018 [facility] M edical Center Respitory Rate [...] bang Center Systolic (mm Hg) 125 03/14/2018 [facility] Diastolic (mm Hg) 91 03/14/2018 [facility] Heart Rate 68 03/14/2018 [facility] Respitory Rate 16 02/21/2018 [facility] BMI Calculated 20.89 02/21/2018 [facility] Weight 71.818 02/21/[facility] Heart Rate 71 02/21/2018 [facility] Systolic (mm Hg) 127 02/21/2018 [facility] Diastolic (mm Hg) 89 02/21/2018 [facility] Height 185.42 cm 02/21/2018 [facility] Respitory Rate 16 01/29/2018 [facility] Heart Rate 80 01[facility]29/2018 [facility] Weight 70 01/29/[facility] Systolic (mm Hg) 126 01/29/2018 [facility] Diastolic (mm Hg) 87 01/29/2018 [facility] Systolic (mm Hg) 124 01/18/2018 [facility] Diastolic (mm Hg) 77 01/18/2018 [facility] Respitory Rate 18 01/18/2018 [facility] Heart Rate 60 01/18/2018 [facility] Respitory Rate 18 01/18/2018 [facility] Heart Rate 60 01/18/[facility] Systolic (mm Hg) 116 01/18/2018 [facility] Diastolic (mm Hg) 74 01/18/2018 [facility] Respitory Rate 18 01/18/2018 [facility] Systolic (mm Hg) 118 01/18/2018 [facility] Diastolic (mm Hg) 75 01/18/2018 [facility] Heart Rate 54 01/18/[facility] Temperature Oral (F) 97.7 F 01/14/2018 [facility] Temperature Oral (F) 97.1 F 01/14/2018 [facility] Temperature Oral (F) 97.9 F 01/13/2018 [facility] Height 185.42 cm 01/11/2018 [facility] BMI Calculated 19.83 01/11/2018 [facility] dical Center Diastolic (mm Hg) 92 12/27/2017 [facility] Weight 70 11/06/2017 [facility] BMI Calculated 20.36 11/06/2017 [facility] Respitory Rate 18 11/06/2017 [facility] Height 185.42 cm 11/06/2017 [facility] Systolic (mm Hg) 125 11/06/2017 [facility] Diastolic (mm Hg) 92 11/06/2017 [facility] Heart Rate 72 11/06/2017 [facility] Systolic (mm Hg) 121 10/23/2017 [facility] Diastolic (mm Hg) 88 10/23/2017 [facility] Heart Rate 77 10/23/2017 [place] [facility] M edical Center Respitory Rate 16 10/09/2017 [facility] Heart Rate 80 10/09/2017 [facility] Systolic (mm Hg) 96 10/03/2017 [facility] Diastolic (mm Hg) 52 10/03/2017 [facility] Respitory Rate 92 10/03/2017 [facility] Heart Rate 67 10/03/2017 [facility] Respitory Rate 20 10/03/2017 [facility] Systolic (mm Hg) 114 10/03/2017 [facility] Diastolic (mm Hg) 69 10/03/2017 [facility] Respitory Rate 14 10/03/2017 [facility] Systolic (mm Hg) 89 10/03/2017 [facility] Diastolic (mm Hg) 56 10/03/2017 [facility] Heart Rate 71 10/03/2017 [facility] Height 185.42 cm 10/03/2017 [facility] BMI Calculated 18.91 10/03/2017 [facility] Weight 65 10/03/2017 [facility] Respitory Rate 18 08/27/2017 [facility] Systolic (mm Hg) 164 08/27/2017 [facility] Diastolic (mm Hg) 93 08/27/2017 [facility] Heart Rate 90 08/27/2017 [facility] Respitory Rate 18 08/27/2017 [facility] Systolic (mm Hg) 176 08/27/2017 [facility] Diastolic (mm Hg) 94 08/27/2017 [facility] Heart Rate 62 08/27/2017 [place] [facility] l [facility] BMI Calculated 19.57 08/23/2017 [facility] Temperature Oral (F) 100.7 F 08/22/2017 [facility] Temperature Oral (F) 99.4 F 08/22/2017 [facility] Temperature Oral (F) 98.4 F 08/22/2017 [facility] BMI Calculated 19.83 08/22/2017 [facility] Weight 68.182 08/22/2017 [facility] Respitory Rate 16 08/22/2017 [facility] ity Heart Rate 98 08/22/2017 [facility] Cit y Systolic (mm Hg) 150 08/22/2017 [facility] Diastolic (mm Hg) 88 08/22/2017 [facility] Heart Rate 86 08/22/2017 [facility] Cit y Respitory Rate 18 08/22/2017 [facility] it Systolic (mm Hg) 162 08/22/2017 [facility] Diastolic (mm Hg) 92 08/22/2017 [facility] Systolic (mm Hg) 156 08/22/2017 [facility] Diastolic (mm Hg) 90 08/22/2017 [facility] Respitory Rate 18 08/22/2017 [facility] ity Heart Rate 90 08/22/2017 [facility] y Temperature Oral (F) 98.3 F 08/22/2017 [facility] Weight 68.182 08/22/2017 [facility] Cit y BMI Calculated 20.39 08/22/2017 [facility] it Height 182.88 cm 08/22/2017 [facility] Cit y Encounters Location Location Encounter Encounter Reason Attending ADM [place] Stat us Source Details Type Number For Provider Date Date Visit [facility] [id number] Rodrigue 08/22 08/22 [facility]2016 Aron ramos [facility] [id number] Gee Edwards 08/22 08[facility]28 [facility] Recurring [id number] Jase 09/06 10/06 [facility] Day [id number] Jase 10/03 10/04 [facility] [place] [facility]2016 [facility] Recurring [id number] Jase 10/09 11/08 [facility]2016 [facility] Emergency [id number] Rodrigue 12/26 12/26 [facility]2017 [facility] Recurring [id number] Jase 12/27 01/[address] [facility] /2017 [facility] Inpatient [id number] Jase 01/10 01/[address] [facility] /2017 [facility] Recurring [id number] Jase 01/29 02/[address] [facility] Recurring [id number] Jase 03/14 04/13 [facility] Recurring [id number] Jase 06/06 07/[address] [facility] Recurring [id number] Jase 09/17 10/[address] [facility] Day [id number] Jase 10/23 10/24 [facility] Recurring [id number] Jase 10/29 11/[address] [facility] /2017 [facility] Procedures Procedure Code Date Perfomer Comments Source Operation<sup>1 [id number] remonal of teeth [facility] </sup> [facility] Operation<sup>1 [id number] x3 mouth [facility] , 2</sup> surgeriesremonal of Medic [facility] Assessment and Plan Assessment and Plan Date Source Extracted from:Title: OMFS PROGRESS FOLLOW UP NOTE 11/28/19 19 [facility] Author: Fartun Hernandez SIMULATION DEVELOPER Date: 10/29/18 [facility] Clinic Follow up note Date: 10/29/2018 Time: 0800 AM Faculty: Dr. Hank Pringle DDJuaquin, MD Provider: Nancy Hernandez RN, MS, DRUM PULLER-BC Reason for Visit: Post operative Visit HPI: [...] recommendations Infectious Dx Nancy Hernandez RN, MS, DRUM PULLER-BC OMFS Extracted from:Title: OMFS discharge summary 10/24/2018 [facility] Author: Riccardo Palm DDS Date: 10/23/18 [...] ACTIVITY:at ramya INSTRUCTIONS: - Return to the [facility] ER if you develop an y of the following: increased trismus, shortness of breath, difficulty breathing, increased swelling, significant pain, persistent bleeding. - Take all medications as prescribed. - Maintain oral hygiene, OK to brush teeth; use Peridex BID for 30 seconds. - Follow up on (10/31/2018) maria antonia Pringle/ Dr. Childress. Please call [phone] for an appointment. The [facility] OMFS clinic is located in the basement of [facility]. DISCHARGE MEDS: FOLLOW UP: (for [facility] call [phone] for an appointment) VS AT DISCHARGE: Temperature No result Systolic Blood Pressure 126 (08:14) Diastolic Blood Pressure 80 (08:14) Pulse 75 (08:14) SpO2 98 (08:14) Respiratory Rate 18 (08:14) EXAM SUMMARY AT DISCHARGE: Physical exam: General: NAD Neuro: AAO x 3, CN5 and 7 grossly intact HEENT:NC/AT Intraoral: sutures intact, surgical sites hemostatic Pulm:CTAB, nonlabored breathing CV:RRR GI:NT/ND Ext:FROM Riccardo Palm DDS loss prevention supervisor PGY-1 Extracted from:Title: OMFS FOLLOW UP NOTE 07/06/2018 [facility] Author: Fartun Hernandez NP Date: 06/06/18 OM[facility] Clinic Follow up note Date: 06/06/18 Time: 0900AM Faculty: Dr. Jase Barton DDS, MD Provider: Nancy Hernandez RN, MS, DRUM PULLER-BC Reason for Visit: Five and a half month follow up of ORIF left mandible. Plus patient stated on his visit to [place] Infect[facility] he was told he needed [...] closure and granulation. 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 Please ensur e patient follows-up at [place] ID clinic with Dr. Oleary in 2 weeks. Thank you for this interesting consult. We will sign-off. Case was discussed with Infectious disease attending Dr. Silva. Maria E Harrell Internal Medicine, PGY-2 MSO# [id number]. [facility] The patient was seen and examined by me with the resident/SIMULATION DEVELOPER/PA and I agree with the History/Exam documented. [...] retaind root tip #6 ADMISSION ATTENDING: Dr. Urrtuia DISCHARGE ATTENDING: Dr. Childress DX: Osteomyelitis of [...] OMFS 01/24/18 make f/u appointment by call [facility] [phone] - Patient is to f/u in infectious [...] CTAB Cardio: RRR SIGNATURE: Nestor Romano DDS loss prevention supervisor PGY1 Extracted from:Title: Clinical Document Author: Oj [...] with any qs Signature: Shoshana Villegas DDS egg worker Attending Attestation I examined Mr. Moreno and [...] Extracted from:Title: OMFS PROGRESS NOTE 11/08/2017 [facility] Author: Fartun Hernandez NP Date: 10/23/17 OMFS Clinic Follow up note Date: 10/23/2017 Time: 1000 Faculty: Dr. Hank Pringle DDS, MD Provider: Nancy Hernandez RN, MS, DRUM PULLER-BC Reason for Visit: Evaluation of left bu [...] Eat good diet Nancy Hernandez RN, MS, DRUM PULLER-BC OMFS Extracted from:Title: History and Physical 08/28/2017 [facility] Author: Jone Spaulding MD Date: 08/26/17 [...] edema greatly decreased. No further treatment from [facility], will sign o ff for now. OK for discharge from our standpoint, infection resolving. Plan: - Ok to DC from FS standpoint - Rec augmentin 875 BID x 10 days - Rec peridex mouthrinse swish and spit BID - Pain per primary - Will contunue to monitor cultures - Please have patient fu in OMFS clinic tues, call [phone] for apt Jin Crawford DDS OMFS [...] managing this odontogenic infection. Isabel Nick MD [place] [facility] #[id number] Plan of Care No Data Provided for This Section Social History Social History Date Source Social History TypeResponse 10/22/2018 [facility] Substance Abuse Use: Past. Type: Cocaine. Alcohol Current, Type Beer. Frequency: 1-2 times per week. Smoking Status Current every day smoker; Type: Cigarett es; Exposure to Tobacco Smoke None; Cigarette Smoking Last 365 Days Yes; Reg Smoking Cessation Counseling No; Tobacco use per day: 10; entered on: 11/14/18 Social History TypeResponse 10/09/2017 [facility] Substance Abuse Use: Past. Type: Cocaine. Alcohol [...]
--- OUTSIDE RECORDS SUMMARY | 2020-09-29 10:24 | XMS REPORT | Continuity of Care Document ---
:1960 Author Organization [facility] t Address [address] [place] [address] Care Team Providers Name Role Phone Asked, Pcp Primary Care Physician Unavailable Shaneka Childress Attending Clinician STALIN Attending Clinician Unavailable Richard Germain Attending Clinician Samara Spaulding Attending Clinician Shaneka Childress Admitting Clinician Jerry Admitting Clinician Problems Condition Condition Condition Status Onset Resolution Last Treating Co mments Source Name Details Category Date Date Treatment Clinician Date OTHER Diagnosis Active 2017-112018-10-23 Mem oria CHRONIC 1-12 07:42:00 l OSTEOMYELI OTHER 00:00: Jessica nn TIS, OTHER CHRONIC 00 SITE OSTEOMYELI TIS, OTHER SITE Active 09/30/2018 [facility] FOLLOW Diagnosis Active 2017-112018-09-17 Mem oria VISIT 0- 09:04:00 l FOLLOW 00:00: [place] VISIT 00 Active 09/13/2018 [facility] FOLLOW UP Diagnosis Active 2018-11-05 Memoria 3-05 10:02:00 l FOLLOW 00:00: [place] UP 00 Active 8 [facility] OSTEOMYEKI Diagnosis Active 2018-02-18 Memoria TIS 2-22 21:50:00 l 00:00: [place] OSTEOMYEKI 00 TIS Active 01/10/2018 [facility] SDF Diagnosis Active 2018-01-10 Mem oria 2- 11:34:00 l SDF 00:00: [place] 00 Active 01/10/2018 [facility] TOOTH Diagnosis Active 2017-12-25 Mem oria ABSCESS 2-06 21:29:00 l TOOTH 00:00: [place] ABSCESS 00 Active 12/25/2017 [facility] LEFT Diagnosis Active 2016-112018-01-17 Mem oria FACIAL 1-08 10:27:00 l MASS LEFT 00:00: Chan SWELLING FACIAL 00 MASS SWELLING Active 09/26/2017 [facility] F/U Diagnosis Active 2016-112017-12-27 Mem oria 0-13 09:51:00 l F/U 00:00: [place] 00 Active 08/31/2017 [facility] DENTAL Diagnosis Active 2016-112018-01-17 Mem oria ABSCESS 0-04 10:28:00 l DENTAL 00:00: [place] ABSCESS 00 Active 08/22/2017 [facility] LT Diagnosis Active 2016-112017-09-05 Mem oria SUBLINGUAL 0-04 09:57:00 l ABSCESS LT 00:00: Chan SUBLINGUAL 00 ABSCESS Active 08/22/2017 [facility] Osteomyeli Osteomyeli Problem Active U nivers tis, jaw tis, jaw ity of chronic chronic [place] [facility] Other Problem 2019-06-17 Memor ia specified 11:03:27 l postproced Other Jessica nn ural specified states postproced ural states 06/17/2019 [facility] Personal Problem 2018-12-19 Mem oria history of 12:06:45 l nicotine Personal Herm mary dependence history of nicotine dependence 12/19/2018 [facility] Fracture Problem 2019-01-22 Mem oria of ramus 12:03:31 l of left Fracture Jessica nn mandible, of ramus subsequent of left encounter mandible, for subsequent fracture encounter with for nonunion fracture with nonunion 01/22/2019 [facility] Nicotine Problem 2019-06-17 Mem oria dependence 11:03:27 l , Nicotine Rob n cigarettes dependence , , uncomplica cigarettes edmond , uncomplica edmond 06/17/2019 [facility] Osteomyeli Problem 2019-06-17 M emoria tis, 11:03:27 l unspecifie Rob n d Osteomyeli tis, unspecifie d 06/17/2019 [facility] Pathologic Problem 2018-04-26 M emoria al 12:12:21 l fracture [place] in other Pathologic disease, al other fracture site, in other initial disease, encounter other for site, fracture initial encounter for fracture 04/26/2018 [facility] Moderate Problem 2018-04-26 Mem oria protein-ca 12:12:21 l santos Moderate Rob n malnutriti protein-ca on santos malnutriti on 04/26/2018 [facility] Cellulitis Problem 2018-04-26 M emoria and 12:12:21 l abscess of Rob n mouth Cellulitis and abscess of mouth 04/26/2018 [facility] Body mass Problem 2018-04-26 Me moria index 12:12:21 l (BMI) 19 Body [place] or less, mass index adult (BMI) 19 or less, adult 04/26/2018 [facility] Retained Problem 2018-04-26 Mem oria dental 12:12:21 l root Retained Rob n dental root 8 [facility] Cocaine Problem 2018-04-26 William jon abuse, 12:12:21 l uncomplica Cocaine Her foreman edmond abuse, uncomplica edmond 04/26/2018 [facility] Other long Problem 2019-06-17 M emoria term 11:03:27 l (current) 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 06/17/2019 [facility] Malignant Problem Resolve 2019-06-17 M emoria neoplasm d 11:03:27 l of skin [place] (disorder) Malignant neoplasm of skin (disorder) Resolved Problem 06/17/2019 not active, all lesions removed [facility] Dieter Problem Resolve 2019-06-17 William jon [place] d 11:03:27 l spotted Dieter [place] fever [place] (disorder) spotted fever (disorder) Resolved Problem 06/17/2019 when pt was 10 [facility] Tardive Problem Resolve 2019-06-17 Mem oria dyskinesia d 11:03:27 l (disorder) Tardive Her foreman dyskinesia (disorder) Resolved Problem 06/17/2019 [facility] CELLULITIS Diagnosis Active 2017-09-05 Memoria AND 09:57:00 l ABSCESS OF Rob n MOUTH CELLULITIS AND ABSCESS OF MOUTH Active [facility] OSTEOMYELI Diagnosis Active 2018-02-18 Memoria TIS OF 21:50:00 l UNSPECIFIE Rob n D ORBIT OSTEOMYELI TIS OF UNSPECIFIE D ORBIT Active [facility] ILLNESS, Diagnosis Active 2018-01-10 M emoria UNSPECIFIE 11:34:00 l D ILLNESS, Rob n UNSPECIFIE D Active [facility] Pathologic Problem 2018-2019-06-17 2019-06-17 Memoria al - 11:03:27 11:03:27 l fracture, 04:30: Chan other Pathologic 58 site, al initial fracture, encounter other for site, fracture initial encounter for fracture 9 06/17/2019 [facility] Encounter Problem 2017-112019-05-13 2019-05-13 Memoria for - 11:09:43 11:09:43 l removal of 04:05: Rob crooks internal Encounter 60 fixation for device removal of internal fixation device 10/31/2018 05/13/2019 [facility] Other Problem 2019-01-22 2019-01-22 M emoria acute 07-13 12:03:31 12:03:31 l osteomyeli Other 03:33: Jessica nn tis, other acute 32 site osteomyeli tis, other site 07/13/2018 01/22/2019 [facility] Allergies, Adverse Reactions, Alerts Allergy Allergy Status Severity Reaction(s) Onset Inactive Treating Comm ents Source Name Type Date Date Clinician Bupropio Propensi Active [place] Hcl ty to 06-25 Methodi adverse 00:00: st reaction 00 s to drug Wellbutr Allergy Active [facility] in to drug ity of ([email or web address] ) Physici ans Wellbutr Wellbutr Active Memori a in in l Chan Family History Family Member Diagnosis Comments Start Date Stop Date Source Natural father Lung cancer [facility] ethodist Natural mother Heart disease [place] Jain Natural mother Hypertension [place] Jain Social History Social Habit Start Date Stop Date Quantity Comments Source History of Chews Tobacco [place] tobacco use Jain Sex Assigned At [place] Jain Tobacco use and 2017-11-27 2017-11-27 Current user Haddad exposure 00:00:00 00:00:00 Jain Alcohol intake 2017-11-27 2017-11-27 Current drinker of Epitiro 00:00:00 00:00:00 alcohol (finding) Methodi st Social History 2017-10-09 2017-10-09 [facility] ermann 15:34:20 15:34:20 Alcohol Comment 2017-04-08 2017-04-08 occassionally [place] 00:00:00 00:00:00 Jain Smoking Status Start Date Stop Date Source Current every day smoker 2017-11-27 00:00:00 Shanekaflory de la cruzvaleriy Jain Medications Ordered Filled Start Stop Current Ordering Indication Dosage Frequency Signature Comments Components Source Medication Medication Date Date Medication? Clinician (SIG) Name Name midazolam 2017-11 No Route: IV, Me moria (ANES) 2-05 Drug form: l 20:00: SOLN, [place] 00 ONCE, Stop date: 10/23/18 14:00:00 AMMONIA SOLUTION PREPARER chlorhexidi 2017-11 Yes 0.018 gm = Memoria [...] tab, PO, l tablet 19:53: Q8H, PRN [place] 00 Pain, Take with food, # 30 [...] ia 2-05 (Same as: l 19:49: Romazicon) [place] 00 Acetaminoph 2017-11 No Notes: Max Memoria en 2-05 acetaminop l 19:49: hen 4000 [place] 00 mg/day (4 gm/day). (Same as: Tylenol [...] Lactate date: 0.028 10/23/18 MEQ/ML 13:49:00 Injectable AMMONIA SOLUTION PREPARER, Solution Duration: 30 day, Stop date: 11/22/18 13:48:00 AMMONIA SOLUTION PREPARER, 1.87, m2 hydromorpho 2017-11 No Route: IV, Memoria ne (ANES) 2- Drug form: l 19:45: INJ, ONCE, Stop date: 10/23/18 13:45:00 AMMONIA SOLUTION PREPARER dexamethaso 2017-11 No Route: IV, Memoria ne (ANES) 2-05 Drug form: l 19:45: INJ, ONCE, Stop date: 10/23/18 13:45:00 AMMONIA SOLUTION PREPARER ondansetron 2017-11 No Route: IV, Memoria (ANES) 2-05 Drug form: l 19:45: INJ, ONCE, Stop date: 10/23/18 13:45:00 AMMONIA SOLUTION PREPARER phenylephri 2017-11 No Route: IV, Memoria ne (ANES) 2- Drug form: l 19:20: INJ, ONCE, Stop date: 10/23/18 13:20:00 AMMONIA SOLUTION PREPARER Isolyte S 2017-11 No Route: IV, Me moria PH 7.4 2-05 Total l (ANES) 500 19:16: Volume: Herm mary mL 00 500, Start date: 10/23/18 13:16:00 AMMONIA SOLUTION PREPARER, Stop date: 10/23/18 14:16:00 AMMONIA SOLUTION PREPARER acetaminoph 2017-11 No Route: IV, Memoria en (ANES) 2 Drug form: l 10 mg 19:10: INJ, Start Rob n date: 10/23/18 13:10:00 AMMONIA SOLUTION PREPARER, Stop date: 10/23/18 14:10:00 AMMONIA SOLUTION PREPARER ePHEDrine 2017-11 No Route: IV, Me moria (ANES) 2- Drug form: l 19:05: INJ, ONCE, Stop date: 10/23/18 13:05:00 AMMONIA SOLUTION PREPARER ceFAZolin 2017-11 No Route: IV, Me moria (ANES) 2- Drug form: l 18:55: INJ, ONCE, Stop date: 10/23/18 12:55:00 AMMONIA SOLUTION PREPARER fentaNYL 2017-11 No Route: IV, Mem oria (ANES) 2- Drug form: l 18:46: INJ, ONCE, Stop date: 10/23/18 12:46:00 AMMONIA SOLUTION PREPARER succinylcho 2017-11 No Route: IV, Memoria line (ANES) 2- Drug form: l 18:46: INJ, ONCE, Stop date: 10/23/18 12:46:00 AMMONIA SOLUTION PREPARER propofol 2017-11 No Route: IV, Mem oria (ANES) 2-05 Drug form: l 18:46: INJ, ONCE, Stop date: 10/23/18 12:46:00 AMMONIA SOLUTION PREPARER lidocaine 2017-11 No Route: IV, Me moria (ANES) 2- Drug form: l 18:45: INJ, ONCE, Stop date: 10/23/18 12:45:00 AMMONIA SOLUTION PREPARER Lactated 2017-11 No Route: IV, Mem oria Ringers 2-05 Total l Injection 18:02: Volume: Jessica nn IV (ANES) 00 1,000, 1000 mL Start date: 10/23/18 12:02:00 AMMONIA SOLUTION PREPARER, Stop date: 10/23/18 13:02:00 AMMONIA SOLUTION PREPARER ceFAZolin + 2017-11 No Notes: William jon [...] BID, 0 Memoria 2-04 Refill(s) l 14:37: [place] 00 Amoxicillin Amoxicillin Yes DENA 1 Q0.5D [...] # 60 tab, 875-mg] 0 Refill(s), Pharmacy: [facility] [id number] ibuprofen No 600 mg = 1 Me moria 600 mg oral 3-02 tab, PO, l tablet 14:35: Q6H, PRN Chan 00 Pain or Fever, Take with food, X 10 day, # 40 tab, 0 Refill(s), Pharmacy: [facility] [id number] chlorhexidi Yes 0.018 gm = Memoria ne 3-02 15 mL, PO, l gluconate 14:35: BID, swish He rmann 1.2 MG/ML 00 and spit; Mouthwash do not [Peridex] swallow, # 480 mL, 0 Refill(s), Pharmacy: [facility] [id number] Benadryl No Notes: Memoria 3-02 (Same as: l 04:26: Benadryl) [place] 00 Amoxicillin No Notes: William jon 875 MG / 01-18 With food. l Clavulanate 03:00: (Same as: H ermann 125 MG Oral 00 Augmentin Tablet 875) [Augmentin 875-mg] Alprazolam No Notes: Memor ia 0.5 MG Oral 01-17 With food l Tablet 16:07: or milk Chan [Xanax] 00 (Same as: Xanax) Triazolam No 0.25 mg, William jon 01-17 Route: PO, l 15:26: Drug form: Chan 00 TAB, ONCE, Dosing Weight 68.182, kg, PRN Agitation, Start date: 01/17/18 9:26:00 AMMONIA SOLUTION PREPARER Benadryl No Notes: Memoria 3-01 (Same as: l 15:26: Benadryl) Chan 00 12 HR No Notes: Memoria Clonidine 2-28 (Same As: l Hydrochlori 15:00: Catapres) H ermann de 0.1 MG 00 Extended Release Tablet Ativan No Notes: Memoria 2-28 (Same as: l 13:08: Ativan) 00 Flagyl No Notes: Memoria 2-27 (Same as: l 22:00: Flagyl) Avoid alcohol. Rocephin No Notes: Memoria 2-27 (Same As: l 20:00: Rocephin). Use with 100 mL NS and infuse over 30 min MEDICATION WASTE Product Size: 2000 mg Product Wasted: ___ mg Vancomycin No 2001 mg: Me moria 2-27 infuse l 20:00: over 2.5 00 hours For adult patients only: Round to nearest 250 mg per Medical Staff approval MEDICATION WASTE Product Size: 1000 mg Product Wasted: ___ mg Ativan No Notes: Memoria 2-27 (Same as: l 13:43: Ativan) [place] Ativan No Notes: Memoria 2-25 (Same as: l 14:41: Ativan) [place] 00 Lidocaine No Notes: Memori a 25 MG/ML / 2-25 Apply to l Prilocaine 12:36: desired Herm mary 25 MG/ML 00 area 2 hrs Topical prior to Cream needle [EMLA] insertion. (Same as: Emla) Pain Ease No 1 spray, William jon topical 2-25 Route: l spray 11:59: TOP, [place] 00 Dosing Weight 68.182, kg, ONCE, Start date: 01/13/18 5:59:00 AMMONIA SOLUTION PREPARER, Stop date: 01/13/18 5:59:00 AMMONIA SOLUTION PREPARER Amicar No 4 gm, Memoria 2-24 Route: l 22:00: S&SPIT, Q8H, Dosing Weight 68.182, kg, Start date: 01/12/18 16:00:00 AMMONIA SOLUTION PREPARER, Duration: 30 day, Stop date: 02/11/18 8:00:00 CDT Tranexamic No Tranexamic M emoria acid 50mg 2-24 acid 50mg l /ml oral 18:00: /ml oral Jessica nn solution 00 solution, 10 mL, Drug form: MISC, Route: S&SPIT, Q8H, 01/12/18 12:00:00 AMMONIA SOLUTION PREPARER, Stop date: 02/11/18 4:00:00 CDT Unasyn No Notes: Memoria 2-24 Dosing l 06:00: based on Ampicillin component (Same as: Unasyn) Nicotine No Notes: Memoria 2-24 (Same as: l 00:00: Habitrol) "Remove old patch before applicatio n of new patch" WASTE: F/P - P Waste Black; E - P Waste Black chlorhexidi No Notes: William jon ne 2-23 (Same As: l gluconate 23:00: Peridex) Herm mary 1.2 MG/ML 00 Mouthwash [Peridex] Beneprotein No Notes: William jon 7 gm pkt 2-23 (Same as: l 23:00: Beneprotei Chan 00 n) Ibuprofen No Notes: Memori a [...] cap, PO, l capsule 19:24: TID, 0 Chan 00 Refill(s) pregabalin Yes 100 mg = 2 M emoria 50 MG Oral 2-23 cap, PO, l Capsule 19:24: Daily, 0 Rob n [Lyrica] 00 Refill(s) Tylenol No Notes: Max William jon 2-23 acetaminop l 18:00: hen 4000 [place] 00 mg/day (4 gm/day). (Same as: Tylenol Extra Strength) Morphine No Notes: Memoria 2-23 (Same l 17:38: as:MORPhin e Sulfate) albuterol No Route: Memori a (ANES) 2-23 INHALATION l 16:29: , Drug form: AERO/A, ONCE, Stop date: 01/11/18 10:29:00 AMMONIA SOLUTION PREPARER ondansetron No Route: IV, Memoria (ANES) 2-23 Drug form: l 16:21: INJ, ONCE, Stop date: 01/11/18 10:21:00 AMMONIA SOLUTION PREPARER acetaminoph No Route: IV, Memoria en (ANES) 2-23 Drug form: l 10 mg 15:38: INJ, Start Rob n date: 01/11/18 9:38:00 AMMONIA SOLUTION PREPARER, Stop date: 01/11/18 10:38:00 AMMONIA SOLUTION PREPARER ceFAZolin No Route: IV, Me moria (ANES) 2-23 Drug form: l 15:21: INJ, ONCE, Stop date: 01/11/18 9:21:00 AMMONIA SOLUTION PREPARER Flumazenil No Notes: Memor ia 2-23 (Same as: l 15:21: Romazicon) Morphine No Notes: Memoria 2-23 (Same l 15:21: as:MORPhin e Sulfate) Oxycodone No Notes: Memori a 2-23 (Same as: l 15:21: Roxicodone ) Ondansetron No Notes: William jon 2-23 (Same as: l 15:21: Zofran) MEDICATION WASTE Product Size: 4 mg Product Wasted: ___ mg Naloxone No Notes: Memoria 2-23 (Same as: l 15:21: Narcan) dexmedetomi No Route: IV, Memoria dine (ANES) 2-23 Drug form: l 15:07: INJ, ONCE, Stop date: 01/11/18 9:07:00 AMMONIA SOLUTION PREPARER dexamethaso No Route: IV, Memoria ne (ANES) 2-23 Drug form: l 14:51: INJ, ONCE, Stop date: 01/11/18 8:51:00 AMMONIA SOLUTION PREPARER famotidine No Route: IV, M emoria (ANES) 2-23 Drug form: l 14:45: INJ, ONCE, Stop date: 01/11/18 8:45:00 AMMONIA SOLUTION PREPARER hydromorpho No Route: IV, Memoria ne (ANES) 2-23 Drug form: l 14:40: INJ, ONCE, Stop date: 01/11/18 8:40:00 AMMONIA SOLUTION PREPARER rocuronium 2017- No Route: IV, M emoria (ANES) 2-23 Drug form: l 14:40: INJ, ONCE, Stop date: 01/11/18 8:40:00 AMMONIA SOLUTION PREPARER fentaNYL 2018- No Route: IV, Mem oria (ANES) 2-23 Drug form: l 14:40: INJ, ONCE, Stop date: 01/11/18 8:40:00 AMMONIA SOLUTION PREPARER midazolam 2017- No Route: IV, Me moria (ANES) 2-23 Drug form: l 14:40: SOLN, 00 ONCE, Stop date: 01/11/18 8:40:00 AMMONIA SOLUTION PREPARER lidocaine 2017- No Route: IV, Me moria (ANES) 2-23 Drug form: l 14:40: INJ, ONCE, Stop date: 01/11/18 8:40:00 AMMONIA SOLUTION PREPARER propofol 2017- No Route: IV, Mem oria (ANES) 2-23 Drug form: l 14:40: INJ, ONCE, Stop date: 01/11/18 8:40:00 AMMONIA SOLUTION PREPARER Lactated 2017- No Route: IV, Mem oria Ringers 2-23 Total l Injection 13:32: Volume: Jessica nn IV (ANES) 00 1,000, 1000 mL Start date: 01/11/18 7:32:00 AMMONIA SOLUTION PREPARER, Stop date: 01/11/18 8:32:00 AMMONIA SOLUTION PREPARER Diphenhydra No Notes: William jon mine -23 (Same as: l 03:11: Benadryl) Tylenol No Notes: Memoria 2-23 Infuse l 00:00: over 15 minutes Do not exceed 4gm/day of acetaminop hen MEDICATION WASTE Product Size: 1000 mg Product Wasted: ___ mg Lyrica No Notes: Memoria 2-22 Same as l 22:00: Lyrica INGREZZA 80 Yes Take 1 [place] mg capsule 1-17 capsule by Met rodriguez 00:00: mouth once st 00 daily as directed by physician. sandiulinu Yes Isolated 500U Enio lin mtoxinA 09 oromandibul Metho di (DYSPORT) 15:00: ar dystonia s t injection 00 500 Units vitamin E Yes 1000U Q.5D Take 1,000 [place] 1000 UNIT 09 Units by Method i capsule 14:19: mouth 2 st 43 (two) times a day. PREGABALIN Yes QD Take by Pearl barr (LYRICA 09 mouth Methodi ORAL) 14:19: daily. st 43 Amoxicillin 2016-11 Yes 875 mg = 1 Memoria 875 MG / 1-15 tab, PO, l Clavulanate 15:54: Q12H, X 7 H ermann 125 MG Oral 00 day, # 14 Tablet tab, 0 [Augmentin Refill(s), 875-mg] [facility] [id number] Motrin 600 2016-11 Yes 600 mg = 1 M emoria mg oral 1-15 tab, PO, l tablet 15:39: Q6H, PRN [place] 00 Pain, take with food, # 30 tab, 0 Refill(s), [facility] [id number] tramadol 2016-11 Yes 50 mg = 1 William jon hydrochlori 1-15 tab, PO, l de 50 MG 15:39: Q4H, PRN Jessica nn Oral Tablet 00 Pain, X 10 day, # 30 tab, 0 Refill(s) Acetaminoph 2016-11 Yes 1,000 mg = Memoria en 500 MG 1-15 2 tab, PO, l Oral Tablet 15:39: BID, PRN He rmann [Tylenol] 00 Pain, X 10 day, # 50 tab, 0 Refill(s), [facility] [id number] chlorhexidi 2016-11 Yes 0.018 gm = Memoria ne 1-15 15 mL, PO, l gluconate 15:39: BID, swish He rmann 1.2 MG/ML 00 and spit; Mouthwash do not [Peridex] swallow, # 480 mL, 0 Refill(s), [facility] [id number] neostigmine 2016-11 No Route: IV, Memoria (ANES) 1-15 Drug form: l 15:18: INJ, ONCE, Stop date: 10/03/17 9:18:00 AMMONIA SOLUTION PREPARER glycopyrrol 2016-11 No Route: IV, Memoria ate (ANES) -15 Drug form: l 15:18: INJ, ONCE, Stop date: 10/03/17 9:18:00 AMMONIA SOLUTION PREPARER dexmedetomi 2016-11 No Route: IV, Memoria dine (ANES) 1-15 Drug form: l 15:06: INJ, ONCE, Stop date: 10/03/17 9:06:00 AMMONIA SOLUTION PREPARER ondansetron 2016-11 No Route: IV, Memoria (ANES) -15 Drug form: l 15:06: INJ, ONCE, Stop date: 10/03/17 9:06:00 AMMONIA SOLUTION PREPARER ceFAZolin 2016-11 No Route: IV, Me moria (ANES) 1-15 Drug form: l 15:04: INJ, ONCE, Stop date: 10/03/17 9:04:00 AMMONIA SOLUTION PREPARER rocuronium 2016-11 No Route: IV, M emoria (ANES) -15 Drug form: l 14:29: INJ, ONCE, Stop date: 10/03/17 8:29:00 AMMONIA SOLUTION PREPARER propofol 2016-11 No Route: IV, Mem oria (ANES) 1-15 Drug form: l 14:29: INJ, ONCE, Stop date: 10/03/17 8:29:00 AMMONIA SOLUTION PREPARER dexamethaso 2016-11 No Route: IV, Memoria ne (ANES) -15 Drug form: l 14:29: INJ, ONCE, Stop date: 10/03/17 8:29:00 AMMONIA SOLUTION PREPARER fentaNYL 2016-11 No Route: IV, Mem oria (ANES) -15 Drug form: l 14:29: INJ, ONCE, Stop date: 10/03/17 8:29:00 AMMONIA SOLUTION PREPARER midazolam 2016-11 No Route: IV, Me moria (ANES) 1-15 Drug form: l 14:29: SOLN, [place] 00 ONCE, Stop date: 10/03/17 8:29:00 AMMONIA SOLUTION PREPARER lidocaine 2016-11 No Route: IV, Me moria (ANES) 1-15 Drug form: l 14:29: INJ, ONCE, Stop date: 10/03/17 8:29:00 AMMONIA SOLUTION PREPARER acetaminoph 2016-11 No Route: IV, Memoria en (ANES) 1-15 Drug form: l 10 mg 14:25: INJ, Start Rob n 00 date: 10/03/17 8:25:00 AMMONIA SOLUTION PREPARER, Stop date: 10/03/17 9:25:00 AMMONIA SOLUTION PREPARER Lactated 2016-11 No Route: IV, Mem oria Ringers 1-15 Total l Injection 13:34: Volume: Jessica nn IV (ANES) 00 1,000, 1000 mL Start date: 10/03/17 7:34:00 AMMONIA SOLUTION PREPARER, Stop date: 10/03/17 8:34:00 AMMONIA SOLUTION PREPARER gabapentin 2016-11 Yes 300 mg = 1 M emoria 300 MG Oral 0-09 cap, PO, l Capsule 21:33: Q8H, # 30 Jessica nn 00 cap, 0 Refill(s), called to pharmacy ibuprofen 2016-11 Yes 800 mg = 1 Me moria 800 mg oral 0-09 tab, PO, l tablet 21:33: Q8H, PRN Chan 00 Fever or Pain, Take with food, X 10 day, # 30 tab, 0 Refill(s), called to pharmacy chlorhexidi 2016-11 Yes 0.018 gm = Memoria ne 0-09 15 mL, l gluconate 21:33: Swab [place] 1.2 MG/ML 00 Mouth, Mouthwash Q12H, # [...] tab, NG, l Tablet 21:33: Daily, # [place] 00 14 tab, 0 Refill(s), called to pharmacy acetaminoph 2016-11 Yes 1,000 mg = Memoria en 500 mg 0-09 2 tab, PO, l oral tablet 21:33: Q6H, X 10 H erm day, # 80 tab, 0 Refill(s), called to pharmacy thiamine 2016-11 Yes 200 mg = 2 Mem oria 100 mg oral 0-09 tab, NG, l tablet 21:33: Daily, X [place] 14 day, # 28 tab, 0 Refill(s), [...] Tablet 00 Amoxicillin 2016-11 No Notes: William jon 875 MG / 0-09 With food. l [...] hours M emoria dine 0-06 l 17:36: [place] 00 Thiamine 2016-11 No 200 mg, Memori a 0-06 Route: IV, l 14:00: Daily, Dosing Weight 67.273, kg, Start date: 08/24/17 9:00:00 CDT, Duration: 30 day, Stop date: 09/22/17 9:00:00 CDT Famotidine 2016-11 No Notes: Memor ia 20 MG Oral 0-06 (Same as: l Tablet 14:00: Pepcid) Vitamin B 2016-11 No Notes: Memori a 12 0-06 (Same As: l 14:00: Vitamin B12) sterile 2016-11 No 1.2 mL, Memoria water 0-06 Route: l 13:24: MISC, Drug Form: INJ, Q2H, PRN See Nurse's Notes, Start date: 08/24/17 8:24:00 CDT, Duration: 30 day, Stop date: 09/23/17 8:23:00 AMMONIA SOLUTION PREPARER pregabalin 2016-11 No Notes: Memor ia 0-06 (Same as: l 13:00: Lyrica) Geodon 2016-11 No Notes: Memoria 0-06 Reconstitu l 11:53: te with 1.2 ml of sterile water. Final concentrat ion = 20 mg/1ml. Maximum 40 mg/24 hours (Same As: Sonja). MEDICATION WASTE Product Size: 20 mg Product Wasted: ___ mg Acetaminoph 2016-11 No Notes: Max Memoria en 0-06 acetaminop l 11:00: hen 4000 00 mg/day (4 gm/day). (Same as: Tylenol Extra Strength) Baclofen 2016-11 No Notes: Memoria 0-06 (Same As: l 02:00: Lioresal) Docusate 2016-11 No 100 mg, Memori a 0-06 Route: PO, l 02:00: Drug form: CAP, Q12H, Dosing Weight 67.273, kg, Start date: 08/23/17 21:00:00 CDT, Duration: 30 day, Stop date: 09/22/17 9:00:00 CDT Mirtazapine 2016-11 No Notes: William jon 0-06 (Same l 02:00: as:Remeron ) olanzapine 2016-11 No 10 mg, Memor ia 0-06 Route: SL, l 02:00: Drug form: Chan 00 TABDIS, Bedtime, Dosing Weight 67.273, kg, Start date: 08/23/17 21:00:00 CDT, Duration: 30 day, Stop date: 09/21/17 21:00:00 CDT docusate 2016-11 No Notes: Memoria 0-06 (Same as: l 02:00: Colace) Chan 00 Reglan 2016-11 No Notes: Memoria 0-06 (Same as: l 01:00: Reglan) [place] 00 Geodon 2016-11 No Notes: Memoria 0-05 [...] Memoria 0-05 (Same as: l 21:00: Phos-NaK) [place] 00 Each 1.5 gm pkt has 250mg phosphorou s. Mix w/2.5oz water and stir. mirtazapine 2016-11 No 0 Memori a 15 mg oral 0-05 Refill(s) l tablet 20:37: [place] 00 pregabalin 2016-11 No 50 mg = 1 Me moria 50 MG Oral 0-05 cap, PO, l Capsule 20:37: TID, 0 Chan [Lyrica] 00 Refill(s) baclofen 20 2016-11 No 0 Memori a mg oral 0-05 Refill(s) l tablet 20:37: [place] 00 OLANZapine 2016-11 No 0 Memoria 10 [...] mg, Memoria 0-05 Route: l 20:00: IVP, [place] ONCALL, Dosing Weight 67.273, kg, Start date: [...] oria 0-05 to exceed l 17:00: 400mg/day. Chan 00 (Same As: Ultram) ocular 2016-11 No [...] Route: NG, l 14:19: Drug form: CAP, [id number], Dosing Weight 67.273, kg, Start date: 08/23/17 [...] gluconate 14:00: Peridex) Herm mary 1.2 MG/ML 00 Mouthwash chlorhexidi 2016-11 No Notes: William jon ne 0-05 (Same As: l gluconate 13:15: Peridex) Herm mary 1.2 MG/ML 00 Mouthwash Dextrose 2016-11 No 12.5 gm, Memor [...] Memori a 0-05 NSAID. l 07:39: Please [place] 00 check indication . Not for seizure. (Same As: CeleBREX) Acetaminoph 2016-11 No Notes: Max Memoria en 0-05 acetaminop l 07:39: hen 4000 [place] 00 mg/day (4 gm/day). (Same as: Tylenol Extra Strength) Unasyn 2016-11 No Notes: Memoria 0-05 Dosing l 07:00: based on Chan 00 Ampicillin component (Same as: Unasyn) Flagyl 2016-11 No Notes: Memoria 0-05 (Same as: l 07:00: Flagyl) Chan 00 Avoid alcohol. Enoxaparin 2016-11 No Notes: Memor ia 0-05 (Same as: l 05:00: Lovenox) [place] 00 Midazolam 2016-11 No Notes: Memori a 0-05 (Same as: l 04:40: Versed) [place] MEDICATION WASTE Product Size: 2 mg Product Wasted: ___ mg Fentanyl 2016-11 No 1,000 Memoria 0-05 microgram, l 04:02: 20 mL, Chan 00 Rate: Titrate, Start Dose: 50 microgram/ hr, Titration: 25 microgram/ hour every 15 minutes, Goal(s): Rass 0, Max Dose: 300 microgram/ hr, Route: IV, Dosing Weight 68.182 kg, Total Volume: 20, Start date: 08/22/17 23:02:00 Du. ASHVIN.. propofol 2016-11 No Notes: If William jon INJ 1,000 0-05 Diprivan - l mg 04:00: change [place] 00 bottle & tubing every 12 hr Per state nursing law propofol can only be given by a nurse if patient is intubated or being intubated (unless the nurse is a RIG BUILDER). Same as: Diprivan Penicillin 2016-11 No 500 mg = 1 M emoria V Potassium 0-05 tab, PO, l 500 MG Oral 03:28: TID Rob n Tablet 00 mirtazapine 2016-11 No 15 mg = 1 M emoria 15 mg oral 0-05 tab, PO, l tablet 03:28: Bedtime baclofen 20 2016-11 No 20 mg = [...] Memoria 0-04 (Same as: l 22:32: Ativan) [place] 00 Unasyn 2016-11 No Notes: Memoria 0-04 [...] Memoria 0-04 Route: l 17:41: IVP, ONCE, Chan 00 Dosing Weight 68.182, kg, Priority: STAT, Start date: 08/22/17 12:41:00 CDT, Stop date: 08/22/17 12:41:00 CDT Clindamycin 2016-11 Yes Notes: William jon 0-04 (clindamyc l 15:40: in 150 [place] 00 mg/1 ml (600 mg/4 ml VL) INJ) (Same As: Cleocin) Flagyl 2016-11 No 500 mg, Memoria 0-04 Route: l 15:26: IVPB, Chan 00 ONCE, Dosing Weight 68.182, kg, Priority: STAT, Start date: 08/22/17 10:26:00 CDT, Stop date: 08/22/17 10:26:00 CDT, ABX Indication : Skin/Soft Tissue Infection Cipro 2016-11 No Notes: Do Memoria 0-04 not l 15:26: refrigerat [place] e Ativan 2016-11 No Notes: Memoria 0-04 (Same as: l 14:13: Ativan) [place] 00 Zofran 2016-11 No Notes: Memoria 0-04 (Same as: l 14:01: Zofran) [place] MEDICATION WASTE Product Size: 4 mg Product Wasted: ___ mg Morphine 2016-11 No 4 mg, Memoria 0-04 Route: l 14:01: IVP, ONCE, [place] 00 Dosing Weight 68.182, kg, Priority: STAT, [...] Observation Value Comments Source Weight 2018-11-14 16:35:00 [facility] [place] Respitory Rate 2018-11-14 16:35:00 Aron Wilsonann Heart Rate 2018-11-14 16:35:00 [facility] [place] Systolic (mm Hg) 2018-11-14 16:35:00 William rial [place] Diastolic (mm Hg) 2018-11-14 16:35:00 Mem orial [place] BMI Calculated 2018-10-29 14:58:00 Aron al [place] Weight 2018-10-29 14:58:00 [facility] [place] Systolic (mm Hg) 2018-10-29 14:58:00 William rial [place] Diastolic (mm Hg) 2018-10-29 14:58:00 Mem orial [place] Height 2018-10-29 14:58:00 185.42 cm [facility] [place] Heart Rate 2018-10-29 14:58:00 [facility] [place] Respitory Rate 2018-10-29 14:58:00 [facility] [place] Heart Rate 2018-10-23 21:45:00 [facility] [place] Systolic (mm Hg) 2018-10-23 21:45:00 William rial [place] Diastolic (mm Hg) 2018-10-23 21:45:00 Mem o[facility] [place] Respitory Rate 2018-10-23 21:45:00 [facility] [place] Respitory Rate 2018-10-23 21:30:00 [facility] [place] Systolic (mm Hg) 2018-10-23 21:30:00 William rial [place] Diastolic (mm Hg) 2018-10-23 21:30:00 Mem orial [place] Respitory Rate 2018-10-23 21:15:00 [facility] [place] Systolic (mm Hg) 2018-10-23 21:15:00 William rial [place] Diastolic (mm Hg) 2018-10-23 21:15:00 Mem orial [place] Heart Rate 2018-10-23 14:13:00 [facility] BMI Calculated 2018-10-23 14:13:00 [facility] [place] Weight 2018-10-23 14:13:00 [facility] [place] Height 2018-10-23 14:13:00 185.42 cm [facility] [place] Weight 2018-10-22 14:42:00 [facility] [place] BMI Calculated 2018-10-22 14:42:00 [facility] [place] Height 2018-10-22 14:42:00 185.42 cm [facility] [place] Systolic (mm Hg) 2018-09-17 15:12:00 William rial [place] Diastolic (mm Hg) 2018-09-17 15:12:00 Mem orial [place] Heart Rate 2018-09-17 15:12:00 [facility] [place] Respitory Rate 2018-09-17 15:12:00 [facility] [place] BMI Calculated 2018-09-17 15:12:00 [facility] [place] Weight 2018-09-17 15:12:00 [facility] [place] Height 2018-09-17 15:12:00 185.42 cm [facility] [place] BP Systolic 2018-07-16 10:28:00 118 mm[Hg] [facility] BP Diastolic 2018-07-16 10:28:00 86 [...] s BMI Calculated 2018-06-06 14:33:00 [facility] [place] Weight 2018-06-06 14:33:00 [facility] [place] Height 2018-06-06 14:33:00 185.42 cm [facility] Heart Rate 2018-06-06 14:33:00 [facility] [place] Respitory Rate 2018-06-06 14:33:00 Aron al [place] Systolic (mm Hg) 2018-06-06 14:33:00 William ambrocio [place] Diastolic (mm Hg) 2018-06-06 14:33:00 Mem orial [place] BP Systolic 2018-04-16 10:49:00 136 mm[Hg] [facility] Respitory Rate 2018-03-28 14:57:00 Aron ramos [place] Heart Rate 2018-03-28 14:57:00 [facility] [place] Systolic (mm Hg) 2018-03-28 14:57:00 William rial [place] Diastolic (mm Hg) 2018-03-28 14:57:00 Mem orial [place] Weight 2018-03-28 14:57:00 [facility] [place] Weight 2018-03-14 15:21:00 [facility] [place] BMI Calculated 2018-03-14 15:21:00 [facility] al [place] Height 2018-03-14 15:21:00 185.42 cm [facility] [place] Respitory Rate 2018-03-14 15:21:00 [facility] [place] Systolic (mm Hg) 2018-03-14 15:21:00 William rial [place] Diastolic (mm Hg) 2018-03-14 15:21:00 Mem orial [place] Heart Rate 2018-03-14 15:21:00 [facility] [place] Respitory Rate 2018-02-21 22:07:00 [facility] al [place] BMI Calculated 2018-02-21 22:07:00 [facility] [place] Weight 2018-02-21 22:07:00 [facility] [place] Heart Rate 2018-02-21 22:07:00 [facility] [place] Systolic (mm Hg) 2018-02-21 22:07:00 William rial [place] Diastolic (mm Hg) 2018-02-21 22:07:00 Mem orial [place] Height 2018-02-21 22:07:00 185.42 cm [facility] [place] Respitory Rate 2018-01-29 15:11:00 Memori al [place] Heart Rate 2018-01-29 15:11:00 [facility] [place] Weight 2018-01-29 15:11:00 [facility] [place] Systolic (mm Hg) 2018-01-29 15:11:00 William rial [place] Diastolic (mm Hg) 2018-01-29 15:11:00 [facility] o[facility] [place] Systolic (mm Hg) 2018-01-18 14:35:00 William rial [place] Diastolic (mm Hg) 2018-01-18 14:35:00 Mem [facility] [place] Respitory Rate 2018-01-18 14:35:00 [facility] [place] Heart Rate 2018-01-18 14:35:00 [facility] [place] Respitory Rate 2018-01-18 09:20:00 [facility] [place] Heart Rate 2018-01-18 09:20:00 [facility] [place] Systolic (mm Hg) 2018-01-18 09:20:00 William rial [place] Diastolic (mm Hg) 2018-01-18 09:20:00 [facility] [place] Respitory Rate 2018-01-18 05:11:00 [facility] [place] Systolic (mm Hg) 2018-01-18 05:11:00 William rial [place] Diastolic (mm Hg) 2018-01-18 05:11:00 [facility] o[facility] [place] Heart Rate 2018-01-18 05:11:00 [facility] Temperature Oral 2018-01-14 23:20:00 97.7 F William rial [place] (F) Temperature Oral 2018-01-14 02:13:00 97.1 F William rial [place] (F) Temperature Oral 2018-01-13 23:16:00 97.9 F William rial [place] (F) Height 2018-01-11 19:47:00 185.42 cm [facility] [place] BMI Calculated 2018-01-11 19:47:00 [facility] [place] Weight 2018-01-11 19:47:00 [facility] [place] Weight 2018-01-11 09:22:00 [facility] [place] BMI Calculated 2018-01-10 19:16:00 [facility] [place] Weight 2018-01-10 19:16:00 [facility] [place] Height 2018-01-10 19:16:00 185.42 cm [facility] [place] Heart Rate 2018-01-10 19:16:00 [facility] [place] Systolic (mm Hg) 2018-01-10 19:16:00 William rial [place] Diastolic (mm Hg) 2018-01-10 19:16:00 Mem orial [place] Weight 2017-12-27 16:41:00 [facility] [place] Respitory Rate 2017-12-27 16:41:00 [facility] [place] Heart Rate 2017-12-27 16:41:00 [facility] [place] Systolic (mm Hg) 2017-12-27 16:41:00 William rial [place] Diastolic (mm Hg) 2017-12-27 16:41:00 Mem orial [place] Weight 2017-11-06 16:53:00 [facility] [place] BMI Calculated 2017-11-06 16:53:00 [facility] [place] Respitory Rate 2017-11-06 16:53:00 [facility] [place] Height 2017-11-06 16:53:00 185.42 cm [facility] [place] Systolic (mm Hg) 2017-11-06 16:53:00 William rial [place] Diastolic (mm Hg) 2017-11-06 16:53:00 Mem orial [place] Heart Rate 2017-11-06 16:53:00 [facility] [place] Systolic (mm Hg) 2017-10-23 15:59:00 William rial [place] Diastolic (mm Hg) 2017-10-23 15:59:00 Mem orial [place] Heart Rate 2017-10-23 15:59:00 [facility] [place] Respitory Rate 2017-10-23 15:59:00 [facility] [place] Weight 2017-10-23 15:59:00 [facility] [place] BMI Calculated 2017-10-23 15:59:00 [facility] [place] Height 2017-10-23 15:59:00 185.42 cm [facility] [place] BMI Calculated 2017-10-09 15:31:00 [facility] [place] Weight 2017-10-09 15:31:00 [facility] [place] Height 2017-10-09 15:31:00 185.42 cm [facility] [place] Systolic (mm Hg) 2017-10-09 15:31:00 William rial [place] Diastolic (mm Hg) 2017-10-09 15:31:00 Mem orial [place] Respitory Rate 2017-10-09 15:31:00 [facility] [place] Heart Rate 2017-10-09 15:31:00 [facility] [place] Systolic (mm Hg) 2017-10-03 16:30:00 William rial [place] Diastolic (mm Hg) 2017-10-03 16:30:00 Mem orial [place] Respitory Rate 2017-10-03 16:30:00 [facility]ori al [place] Heart Rate 2017-10-03 16:30:00 [facility] [place] Respitory Rate 2017-10-03 16:15:00 [facility] [place] Systolic (mm Hg) 2017-10-03 16:15:00 William rial [place] Diastolic (mm Hg) 2017-10-03 16:15:00 Mem orial [place] Respitory Rate 2017-10-03 16:00:00 [facility] al [place] Systolic (mm Hg) 2017-10-03 16:00:00 William rial [place] Diastolic (mm Hg) 2017-10-03 16:00:00 Mem orial [place] Heart Rate 2017-10-03 12:54:00 [facility] [place] Height 2017-10-03 12:47:00 185.42 cm [facility] [place] BMI Calculated 2017-10-03 12:47:00 [facility] [place] Weight 2017-10-03 12:47:00 [facility] [place] Respitory Rate 2017-08-27 21:06:00 [facility] al [place] Systolic (mm Hg) 2017-08-27 21:06:00 William rial [place] Diastolic (mm Hg) 2017-08-27 21:06:00 Mem orial [place] Heart Rate 2017-08-27 21:06:00 [facility] [place] Respitory Rate 2017-08-27 17:35:00 [facility] [place] Systolic (mm Hg) 2017-08-27 17:35:00 William rial [place] Diastolic (mm Hg) 2017-08-27 17:35:00 Mem orial [place] Heart Rate 2017-08-27 17:35:00 [facility] [place] Systolic (mm Hg) 2017-08-27 13:09:00 William rial [place] Diastolic (mm Hg) 2017-08-27 13:09:00 Mem orial [place] Respitory Rate 2017-08-27 13:09:00 [facility] al [place] Heart Rate 2017-08-27 13:09:00 [facility] [place] Height 2017-08-25 16:17:00 185.42 cm [facility] [place] Height 2017-08-25 12:36:00 185.42 cm [facility] [place] Height 2017-08-25 11:03:00 185.42 cm [facility] Weight 2017-08-23 05:54:00 [facility] [place] BMI Calculated 2017-08-23 05:54:00 [facility] [place] Temperature Oral 2017-08-22 23:05:00 100.7 F William rial [place] (F) Temperature Oral 2017-08-22 20:46:00 99.4 F William rial [place] (F) Temperature Oral 2017-08-22 18:35:00 98.4 F William rial [place] (F) BMI Calculated 2017-08-22 18:35:00 [facility] [place] Weight 2017-08-22 18:35:00 [facility] [place] Respitory Rate 2017-08-22 17:22:00 Memori al [place] Heart Rate 2017-08-22 17:22:00 [facility] [place] Systolic (mm Hg) 2017-08-22 17:22:00 William rial [place] Diastolic (mm Hg) 2017-08-22 17:22:00 Mem orial [place] Heart Rate 2017-08-22 16:35:00 [facility] Respitory Rate 2017-08-22 16:35:00 [facility] [place] Systolic (mm Hg) 2017-08-22 16:35:00 William rial [place] Diastolic (mm Hg) 2017-08-22 16:35:00 [facility] o[facility] [place] Systolic (mm Hg) 2017-08-22 13:56:00 William rial [place] Diastolic (mm Hg) 2017-08-22 13:56:00 Mem [facility] [place] Respitory Rate 2017-08-22 13:56:00 [facility] al [place] Heart Rate 2017-08-22 13:56:00 [facility] [place] Temperature Oral 2017-08-22 13:56:00 98.3 F William rial [place] (F) Weight 2017-08-22 13:56:00 [facility] [place] BMI Calculated 2017-08-22 13:56:00 [facility] al [place] Height 2017-08-22 13:56:00 182.88 cm [facility] Chan Procedures Procedure Date / Time Performed Performing Clinician [facility] e Operation<sup>1, 2</sup> Memoria l [place] Plan of Care Planned Activity Planned Date Details Comments Source Future Scheduled 2020-06-19 [place] VACCINE [place] [facility] 00:00:00 [code = INFLUENZA VACCINE] Future Scheduled 2011 COLONOSCOPY SCREENING [facility]ain Test 00:00:00 [code = COLONOSCOPY SCREENING] Future Scheduled 2011 SHINGLES VACCINES [place] [facility] 00:00:00 (#1) [code = SHINGLES VACCINES (#1)] Encounters Start End Encounter Admission Attending Care Care Encounter Source Date/Time Date/Time Type Type Clinicians Facility Department ID 2018-10-29 2018-11-27 Outpatient Monroe [facility] [id number] 08:02:00 23:59:00 Jase 06 Olvinos 2018-10-23 2018-10-23 Outpatient [place] [facility] [id number] 07:42:00 23:59:00 Jase 04 Mtabetitoos 2018-09-17 2018-10-16 Outpatient [place], [facility] [id number] 08:55:00 23:59:00 Jase 08 Mtanios 2018-07-16 2018-07-16 Appointmen [facility] [id number] Univers 10:00:00 10:00:00 t; Christine [facility] [place] M[facility] ci ans 2018-06-06 2018-07-05 Outpatient [place], [facility] [id number] 09:23:00 23:59:00 Jase 05 Mtanios 2018-04-16 2018-04-16 Appointmen BLAINE GANT Infectious [id number] Univers 10:30:00 10:30:00 t; Christine FERNAND[facility] [place] [facility] M.D[facility] Physi ci ans 2018-03-14 2018-04-12 Outpatient [place], [facility] [id number] 10:15:00 23:59:00 Jase 04 Mtanios 2018-03-12 2018-03-12 Appointmen BLAINE GANT UTP [id number] Univers 09:30:00 09:30:00 t; Christine FERNANDESy [place] Hinkle M.D. Physi ci ans 2018-01-29 2018-02-27 Outpatient [place], [facility] [id number] 09:50:00 23:59:00 Jase 03 Mtanios 2017-12-27 2018-01-25 Outpatient [place], [facility] [id number] 10:06:00 23:59:00 Jase 02 Mtanios 2017-12-27 2018-01-25 Outpatient [place], [facility] [id number] 10:06:00 23:59:00 Jase 02 Mtanios 2017-12-27 2018-01-25 Outpatient [place], [facility] [id number] 10:06:00 23:59:00 Jase 02 Mtanios 2018-01-10 2018-01-18 Outpatient [place], [facility] [id number] 13:53:00 12:10:00 Jase 53 Mtanios 2017-12-25 2017-12-25 Outpatient Jessa, [facility] [id number] 19:50:00 21:15:00 Rodrigue 03 Garth 2017-10-09 2017-11-07 Outpatient [place], [facility] [id number] 09:16:00 23:59:00 Jase 01 Mtanios 2017-09-06 2017-10-05 Outpatient [place], [facility] [id number] 09:14:00 23:59:00 Jase 00 Mtanios 2017-10-03 2017-10-03 Outpatient [place], [facility] [id number] 05:57:00 23:59:00 Jase 02 Osirisnios 2017-08-22 2017-08-27 Outpatient Jasson [facility] [id number] 13:33:00 19:30:00 Jone J 01 2017-08-22 2017-08-22 [id number] 08:40:00 13:29:00 Rodrigue 00 Gar Results Test Description Test Time Test Comments Results Result Sourc e Comments BLOOD BANK RESULTS 2018-10-23 Negative Memori al 14:27:00 (10/23/18 8:27 Chan AM) CHEM PANEL 2018-01-15 8.9 [facility] 15:25:00 [place] CHEM PANEL 2018-01-15 27 [facility] 15:25:00 [facility] CHEM PANEL 2018-01-15 145 [facility] 15:25:00 [place] CHEM PANEL 2018-01-15 0.70 [facility] 15:25:00 [place] CHEM PANEL 2018-01-15 111 [facility] 15:25:00 [place] CHEM PANEL 2018-01-15 4.1 [facility] 15:25:00 [place] CHEM PANEL 2018-01-15 17 [facility] 15:25:00 [place] CHEM PANEL 2018-01-15 89 [facility] 15:25:00 [place] CHEM PANEL 2018-01-15 105 [facility] 15:25:00 [place] CHEM PANEL 2018-01-15 11.1 [facility] 15:25:00 [place] HEMATOLOGY 2018-01-15 26.8 [facility] 15:25:00 [place] HEMATOLOGY 2018-01-15 3.9 [facility] 15:25:00 [place] HEMATOLOGY 2018-01-15 7.0 [facility] 15:25:00 [place] HEMATOLOGY 2018-01-15 4.2 [facility] 15:25:00 [place] HEMATOLOGY 2018-01-15 0.6 [facility] 15:25:00 [place] HEMATOLOGY 2018-01-15 1.8 [facility] 15:25:00 [place] HEMATOLOGY 2018-01-15 61.7 [facility] 15:25:00 [place] HEMATOLOGY 2018-01-15 0.3 [facility] 15:25:00 [place] HEMATOLOGY 2018-01-15 0.5 [facility] 15:25:00 [place] HEMATOLOGY 2018-01-15 34.4 [facility] 15:25:00 [place] HEMATOLOGY 2018-01-15 12.2 [facility] 15:25:00 [place] HEMATOLOGY 2018-01-15 15:25:00 Test Item Value Reference Range Interpretation Comme nts MCH (test code = MCH) 31.8 pg 27.0-31.0 [facility] QdavwuwCZDJVKPYGX0455-49-83 15:25:49852Kusrwhen HermannHEMATOLOGY 2018-01-15 15:25:008.4[facility] LvhapllJOBYUQHYQJ2680-03-71 15:25:0092.7[facility] CcnjxkqEFPRWSDYNF5123-30-12 15:25:006.8[facility] TcnjikyLNQHRSYXPI8600-13-94 15:25:004.02[facility] LtfsnboYQWTLYQJCP1141-31-22 15:25:0012.8[facility] [place] DUAJMZDDMQ3949-01-78 15:25:0037.3[facility] HyntiwlCDUARBQQFOXS0800-47-83 12:18:00 13.4[facility] OygyrvjITDKNUWJPAZH0624-86-41 12:18:94954Uuliuxsh [place] YDJWMDCXEHUE5242-84-83 12:18:0077[facility] VtdjrkdSYUVMPSBYSTJ8553-88-95 12:18:00 0.67[facility] MtttjydMBCKAZCDEUGA8898-22-14 12:18:0016[facility] OZICDKDLSKIF1314-33-67 12:18:66015Itvzdflb RxbhkamCUPWECEJMXIA7503-03-64 12:18:54547Jckpcdoq GdgwkdmHNZBHSNPRKOY0654-55-68 12:18:004.4[facility] SWVWJQAYLTDI6309-19-35 12:18:008.6[facility] CbntvheAFARUJPUXSFV7292-57-74 12:18:0024[facility] RvfigydZTDRWNAVFD6792-90-74 12:18:0056.4[facility] [place] DUUMASLCUL1678-29-10 12:18:0030.9[facility] GdkbctzLWYXZIHAFH1741-58-52 12:18:00 8.2[facility] QabvupiHIXCCLGHYW8855-68-10 12:18:001.0[facility] HermannHEMATOLOGY 2018-01-14 12:18:003.5[facility] WrlkwckNRVQOAEPZF4627-40-24 12:18:004.4[facility] VkaegpiBCUCORHFWT2587-73-73 12:18:002.4[facility] GcztsjkZQKASLKTAG4372-85-94 12:18:000.3[facility] TqdmerlVQIKZLLHFF2097-70-18 12:18:000.1[facility] SNMYDWOTMJ2742-61-59 12:18:000.6[facility] TkejuxkHOZESDIQKN0580-83-55 12:18:00 38.9[facility] SttciofTBOGIKBCTP4119-43-95 12:18:0094.4[facility] HermannHEMATOLOGY 2018-01-14 12:18:00 Test Item Value Reference Range Interpretation Comments MCH (test code = MCH) 31.8 pg 27.0-31.0 [facility] WlnslbeWEOEXWDFUE0225-82-02 12:18:0033.7[facility] HermannHEMATOLOGY 2018-01-14 12:18:0013.0[facility] LszyeqsVXJJWBNMIS9997-46-29 12:18:56758Gpfocojc AdjqsdmSASMLPDHWZ3610-65-90 12:18:008.5[facility] NdjgpvyGDGLTCWEYW1643-80-01 12:18:007.8[facility] FdcwlmoPMINVTHLPQ8918-25-03 12:18:004.12[facility] RBPNUTEJUE3972-25-95 12:18:0013.1[facility] WersnmrHAMPGVIKUEFZ4633-57-19 17:16:00 9.1[facility] LysvftbCHHBQYBZXSZC2753-63-24 17:16:94711Kmhaaoyj [place] PYELSYCANWWJ5390-87-47 17:16:0081[facility] DghxkzoVSSWOLZRTZLS1693-24-25 17:16:00 141[facility] DjzdljaQSPHJFYGOVCW3814-78-12 17:16:000.73[facility] [place] CBLOBKUHPQNU3170-69-80 17:16:0018[facility] PaqcplfNITMQSZBVQIP1092-85-72 17:16:00 8.7[facility] MclmddqHSRIOXDXXSHT5368-50-01 17:16:0027[facility] HermannELECTROLYTES 2018-01-13 17:16:06976Futglsiz JzssumtRSYSTHCWSTGG5255-72-23 17:16:004.1[facility] EwzgfpnPLZEKQONKH5945-23-90 17:16:005.8[facility] VybxzcnYNXNGZRICC8514-33-38 17:16:006.7[facility] JhowsbuZSGFUQICVU1495-42-30 17:16:000.4[facility] [place] DUHBUGOHMB1118-39-69 17:16:002.0[facility] NdixvzjXBVEDVMKNZ6137-22-23 17:16:001.6 [facility] ZcpvffvANEVINUAXE4558-24-84 17:16:000.6[facility] HermannHEMATOLOGY 2018-01-13 17:16:000.1[facility] EjtoyyfQVBJBBSJFG1224-00-04 17:16:0067.9[facility] TufkbotEKCXGNTNEN0556-11-08 17:16:0023.4[facility] KfcfuoxSLUSDGGHJT6136-49-49 17:16:004.04[facility] ZagjqebKWMWVZZSPU2951-77-78 17:16:0012.9[facility] [place] AJYOUSGYRX2243-47-51 17:16:0037.9[facility] AsvgulrIEGIUUFYNN5759-68-73 17:16:00 94.0[facility] DnykbitLTSZIECZGQ5740-09-44 17:16:008.5[facility] HermannHEMATOLOGY 2018-01-13 17:16:0012.7[facility] EzoftriAAFTYHJUHQ9434-43-12 17:16:21061Owtzqnva NxeqnduKPXTEHQSJY4049-08-23 17:16:0034.0[facility] PrtrhyuMFBXTOBKTE0953-85-62 17:16:00 Test Item Value Reference Range Interpretation Comments MCH (test code = MCH) 32.0 pg 27.0-31.0 [facility] FmkwlzlWTPMTTRIVA7748-11-67 17:16:008.5[facility] HermannBLOOD BANK EJKTRRF9482-60-07 07:36:00Negative (01/11/18 1:36 AM)[facility] HermannHEMATOLOGY 2018-01-11 07:36:000.1[facility] HermannCHEM PIMVE9394-58-30 08:10:002.8[facility] HermannCHEM LULRS5952-59-57 08:10:002.4[facility] HermannCHEM AXVOR0061-61-79 08:10:26634Iojqtsve HermannCHEM YONLS6099-36-08 08:10:88344Brwmunmf HermannCHEM KRBEQ7613-01-01 08:10:0030[facility] HermannCHEM NGHPM6015-99-81 08:10:008.1 [facility] HermannCHEM OIXXJ4444-35-45 08:10:009.1[facility] HermannCHEM PANEL 2017-08-26 08:10:004.1[facility] HermannCHEM MIUCF2088-20-76 08:10:000.64[facility] HermannCHEM QOLRE1590-81-10 08:10:78974Izkzxhxg HermannCHEM ZVANS3211-87-59 08:10:0078[facility] HermannCHEM PSOFN7334-48-12 08:10:0021[facility] ZRDIFSKEZW9054-42-09 08:10:008.4[facility] MwlvzfrRMYGJGFFJY4485-39-06 08:10:00 14.3[facility] WbfhqkqKIWXDCSXUA9652-97-57 08:10:06953Ewcvtqqt HermannHEMATOLOGY 2017-08-26 08:10:0032.5[facility] EsxumcfRLNCMNKUSP3143-78-82 08:10:0097.2[facility] UtlqqqtNCJXEIZTLL5908-89-70 08:10:00 Test Item Value Reference Range Interpretation Comments MCH (test code = MCH) 31.6 pg 27.0-31.0 [facility] TgotxvwBZRUFMBILT1776-29-44 08:10:0033.0[facility] HermannHEMATOLOGY 2017-08-26 08:10:0010.7[facility] RcecdnbQJSDSAGYWM8635-68-09 08:10:003.39[facility] RyopmmhTUPAYOSYPW3191-39-86 08:10:0013.7[facility] VbicftqKTTYVDSGJY7472-37-47 08:10:000.2[facility] LalycfjHWFVEFKFXG5751-24-33 08:10:001.3[facility] VBGIGZOITA7251-72-18 08:10:009.3[facility] RcyzvdkUWVTHWAKGL9575-25-34 08:10:002.8 [facility] YjdjavfYGXDQFAXVL5264-08-73 08:10:009.8[facility] HermannHEMATOLOGY 2017-08-26 08:10:000.2[facility] ImamkxbHKVUOZBZHY6981-02-49 08:10:001.3[facility] MdnvsbmYLLIZQXMVI5146-55-31 08:10:0020.4[facility] GkofgyeECSYLSEBDN2193-43-91 08:10:0068.3[facility] IttzbhyIZLQNYRXEVCS7138-28-74 08:17:0010.0[facility] [place] KWSYMPXCWQKM0802-59-73 08:17:008.0[facility] YdzrtekIYSGSMIUSQNJ1998-97-04 08:17:0030[facility] UhkvvpzWRXATEJRHPKV8365-68-74 08:17:20966Ntcnyipi [place] OEHFVQXUNVNZ0449-70-83 08:17:000.72[facility] OsvoolnSMLGNLQHZGQL6453-37-27 08:17:0028[facility] UihqzwpAFBGHCPRGQTL0361-68-10 08:17:75053Yxuykcpd [place] IKIRAERCHIQR3199-51-90 08:17:004.0[facility] QxqrhdfCEHEAWWWITCT1178-51-12 08:17:58899Subdvcit OcznhbqFWXHODREAMQE7742-00-34 08:17:95708Xvwmlgpd Chan ACNFGHKNHT3551-29-16 08:17:0013.8[facility] RhvxrwrIDWYUQQBFW8195-10-28 08:17:00 10.3[facility] GeqvllmGXORRPHASZ4700-72-83 08:17:003.25[facility]annHEMATOLOGY 2017-08-25 08:17:0096.3[facility] PzadathFCEQEJGKGI0285-17-33 08:17:00 Test Item Value Reference Range Interpretation Comments MCH (test code = MCH) 31.8 pg 27.0-31.0 [facility] UvudwflOYQQYYKVFT3406-61-81 08:17:0033.0[facility]annHEMATOLOGY 2017-08-25 08:17:0031.3[facility] AlqetctFTBGYNLPMM1074-47-24 08:17:008.5[facility] BzfcmpsHDSRJJKCAK2764-36-38 08:17:83261Mijvvcgp HiwkfptDIQBJLIWGV1549-41-84 08:17:0014.4[facility] RbqnqtjAWHMCQVRDIEG4032-56-28 07:59:0013.7[facility] YJLUBMWNEKFS3922-25-40 07:59:0030[facility] BshumtiKJNXMNRXYECO3249-51-22 07:59:00 108[facility] GazivryVQDWJXQDYDPY4495-33-36 07:59:004.7[facility] [place] VEOYPESRMBWR9956-83-47 07:59:98056Vxkqdwzz DimfhszSKWANDSQFWUN9803-96-67 07:59:008.1[facility] UiicbvzHDMJDDHQOPVM6229-72-74 07:59:000.90[facility] [place] TFWVSEXPMOMM8850-93-07 07:59:0032[facility] OfjzzlcAUDHDWUQXYHY1375-25-05 07:59:00 109[facility] JurngaaNUJTZRJFNXKA4716-66-94 07:59:0095[facility]annHEMATOLOGY 2017-08-24 07:59:0097.8[facility] RsuxrklRSPEVGPOMA6983-94-82 07:59:00 Test Item Value Reference Range Interpretation Comments MCH (test code = MCH) 31.9 pg 27.0-31.0 [facility] JrkywrjTCLVAWGFXT2629-18-60 07:59:0032.7[facility]annHEMATOLOGY 2017-08-24 07:59:0030.8[facility] SdxrbhgCASLTHSNLY3009-76-49 07:59:0010.1[facility] JzdpitfXPVMACAWQD1255-18-93 07:59:0015.9[facility] GdbmvquKMVGYJUURI1541-11-36 07:59:003.15[facility] SewwozkXXBCJXUTMQ9190-93-16 07:59:009.0[facility] WDAJCLXJVS4565-10-62 07:59:0014.4[facility] MziwfdbKGCJQXFNVW9920-26-00 07:59:00 305[facility]annCHEM PBMNI2259-66-97 06:34:002.1[facility]annCHEM PANEL 2017-08-23 06:34:003.1[facility]annBLOOD BANK UPNGPJQ3541-94-48 01:20:00 Negative (08/22/17 8:20 PM)[facility]annCHEM LPTKC5878-87-03 23:26:001.3 [facility]annCHEM COPLG9599-34-05 16:23:000.8[facility] HermannELECTROLYTES 2017-08-22 14:20:49737Loeymqtp TfespenUHAEQUNQXSAU8135-12-23 14:20:23210Wsxmvabq SwyswerDFYELCAMINPO7082-07-88 14:20:009.1[facility] DwggcndTZLKYTRJNSTS8061-59-13 14:20:003.9[facility] RmwyqpaOCOZUPTINFLU0503-77-52 14:20:0098[facility] DSUAFBARXPOQ2815-26-48 14:20:0081[facility] ThhqhioLHNAVFEYPSOQ2778-71-20 14:20:00 2.7[facility] IevepzlGBWRQLMNEMNP5593-17-80 14:20:0032[facility] HermannELECTROLYTES 2017-08-22 14:20:0027[facility] KzwrzcqCRPUIULZFHEN7971-48-64 14:20:000.85[facility] PtyhrdkOUUEHGPGROXZ9578-52-78 14:20:0027[facility] VbozrrwGLEZDAYJSZYX2460-71-71 14:20:0017[facility] PnwoexjHYHXYGGJKXND9173-13-51 14:20:16993Khvzcfmg [place] PQOGPTTORXIK5635-82-38 14:20:000.4[facility] ZiujfwpJLCCWVKQTKHM5611-64-72 14:20:006.9[facility] HupxnvvHTWPDOHDHFET5401-90-78 14:20:0020[facility] WUQXMCXQKWBL4014-53-61 14:20:0015.9[facility] ZsjblytONIZESVINVGB9563-74-19 14:20:000.6[facility] CdxizyrEVHXTUNFIWQR0402-06-93 14:20:004.2[facility] EJSSEPVSQO9384-55-61 14:20:009.2[facility] JzrshhpBNPHBJYEBC8135-43-56 14:20:71318 [facility] RylwoteESIIJFHGFZ8951-96-45 14:20:00 Test Item Value Reference Range Interpretation Comments MCH (test code = MCH) 32.7 pg 27.0-31.0 [facility] HsqrxmzYCYXZVNSSW2048-21-57 14:20:0034.2[facility]annHEMATOLOGY 2017-08-22 14:20:0014.0[facility] CimkmzrRSTWZEYFEP6091-06-29 14:20:004.14[facility] PwdyqjhPOAATXTYCJ0616-04-16 14:20:0020.2[facility] KcrdignEPNTUEOKES5166-05-41 14:20:0095.7[facility] OpzfdgpXVUKUZEKWJ4199-23-49 14:20:0013.6[facility] IOCETJGCHC4075-46-01 14:20:0039.6[facility] FwqniruTXGFMRTVZJ1059-13-12 14:20:00 0.1[facility] XwpymcjLHJPTMLOOL8946-14-37 14:20:001.9[facility] HermannHEMATOLOGY 2017-08-22 14:20:0017.1[facility] OqgegmaMQQNRSUQUG0881-91-41 14:20:001.1[facility] WcztrpoKSWXEJMRNG7772-58-68 14:20:009.5[facility] EwfknndJJQLNEUKUH7260-14-40 14:20:000.5[facility] VmvotemIMHLJYMDMN9616-21-04 14:20:000.1[facility] BFFEQOHQNX5356-26-29 14:20:0084.6[facility] SnvkpuuJIIHGPIJHJ4120-69-32 14:20:00 5.3[facility]
--- NOTE | 2020-09-29 13:29 | P.OP ---
Preoperative diagnosis: Bilateral inguinal incarcerated hernias Postoperative diagnosis: Bilateral inguinal incarcerated hernias Primary procedure: Open Bilateral inguinal hernia repair with mesh Anesthesia: GETA + Local Estimated blood loss: <5cc Specimen: hernia sacks bilaterally Findings: bilateral indirect inguinal hernias, incarcerated Complications: None Implants: Bard Perfix medium plug and patch repair systems x 2 Transferred to: Recovery Room Condition: Good
[2020-09-29] MEDS: HYDROMORPHONE HCL 1 MG/ML INJ ONE ×2 (13:47→13:57)
[2020-09-29 14:40] VITALS: TEMP 97.1
[2020-09-29 15:39] VITALS: BP 139/85; O2SAT 97
--- NOTE | 2020-09-30 20:34 | OP ---
Date of Procedure: 09/30/2020 Surgeon: Eulogio Mac MD, Preoperative Diagnosis: Bilateral inguinal incarcerated hernias. Postoperative Diagnosis: Bilateral inguinal incarcerated hernias. Procedure Performed: Open bilateral inguinal hernia repair with x2 pieces of mesh. Anesthesia: General endotracheal plus local with 0.25% Marcaine. Estimated Blood Loss: Less than 5 cc. Specimens: Hernia sacs bilaterally. Findings: Bilateral indirect inguinal hernias, which were incarcerated containing only fat. Complications: None. Implants: Bard PerFix medium plug and patch hernia repair system bilaterally. Condition: The patient was transferred to recovery room in good condition. Procedure In Detail: After informed consent was obtained, the patient was brought to the operating room and prepped and draped in the usual sterile fashion. After adequate anesthesia was achieved, I made an inguinal incision over the right inguinal hernia down through the subcutaneous tissues using a 15 blade. Dissection continued down using electrocautery down to expose subcutaneous tissues through Camper's fat and Jack's fascia to expose the external oblique aponeurosis. The external oblique aponeurosis was sharply incised using a 15 blade down through the tissue. I then used Metzenbaum scissors to open the external oblique aponeurosis in its entirety both proximally and distally to the deep inguinal ring, protecting the ilioinguinal nerve and the iliohypogastric nerve throughout the dissection. I then encircled the spermatic cord and structures using a [place] drain and dissected the hernia sac, found to be in the medial aspect of the hernia sac consistent with indirect inguinal hernia. After the hernia sac was dissected free, the abdominal contents were returned back to normal anatomic position and I returned the hernia sac to the preperitoneal space after transecting the hernia sac and sending off a small piece for pathologic examination. I then imbricated a suture of 3-0 Vicryl suture and tied off the hernia sac at this point and returned it to the preperitoneal space. Finger sweep was performed to ensure a hernia plug could go in a good flat anatomic position in the preperitoneal space. After this was swept, I brought in a Bard PerFix medium plug and parachuting this in. I placed it in the preperitoneal space using 0 interrupted PDS sutures with good apposition of the tissues. The plug was found to be in good anatomic position. I irrigated the area copiously multiple times to completely clear and suctioned it until dry. At this point, I brought in the hernia patch, sized appropriately, and placing in a tension-free manner. I secured to the pubic tubercle medially and on the medial and lateral shelving edges of the inguinal ligament and the internal oblique tissue. At this point, the deep inguinal ring was reconstituted using the same said 0 PDS suture. The area was clean at this point. No additional hemostatic maneuvers required. All nerve and vascular structures were protected throughout. I then closed the external oblique aponeurosis using a running 3-0 Vicryl suture and Camper's fat, Jack's fascia over the top with an additional 3-0 Vicryl suture and closed the deep dermal tissues with 3-0 Vicryl suture and the skin was closed with 4-0 Monocryl in a running fashion. Dermabond was placed over the top. I then made an inguinal incision over the LEFT inguinal hernia down through the subcutaneous tissues using a 15 blade. Dissection continued down using electrocautery down to expose subcutaneous tissues through Camper's fat and Jack's fascia to expose the external oblique aponeurosis. The external oblique aponeurosis was sharply incised using a 15 blade down through the tissue. I then used Metzenbaum scissors to open the external oblique aponeurosis in its entirety both proximally and distally to the deep inguinal ring, protecting the ilioinguinal nerve and the iliohypogastric nerve throughout the dissection. I then encircled the spermatic cord and structures using a [place] drain and dissected the hernia sac, found to be in the medial aspect of the hernia sac consistent with indirect inguinal hernia. After the hernia sac was dissected free, the abdominal contents were returned back to normal anatomic position and I returned the hernia sac to the preperitoneal space after transecting the hernia sac and sending off a small piece for pathologic examination. I then imbricated a suture of 3-0 Vicryl suture and tied off the hernia sac at this point and returned it to the preperitoneal space. Finger sweep was performed to ensure a hernia plug could go in a good flat anatomic position in the preperitoneal space. After this was swept, I brought in a Bard PerFix medium plug and parachuting this in. I placed it in the preperitoneal space using 0 interrupted PDS sutures with good apposition of the tissues. The plug was found to be in good anatomic position. I irrigated the area copiously multiple times to completely clear and suctioned it until dry. At this point, I brought in the hernia patch, sized appropriately, and placing in a tension-free manner. I secured to the pubic tubercle medially and on the medial and lateral shelving edges of the inguinal ligament and the internal oblique tissue. At this point, the deep inguinal ring was reconstituted using the same said 0 PDS suture. The area was clean at this point. No additional hemostatic maneuvers required. All nerve and vascular structures were protected throughout. I then closed the external oblique aponeurosis using a running 3-0 Vicryl suture and Camper's fat, Jack's fascia over the top with an additional 3-0 Vicryl suture and closed the deep dermal tissues with 3-0 Vicryl suture and the skin was closed with 4-0 Monocryl in a running fashion. Dermabond was placed over the top. All counts were correct at the end of the case. The patient tolerated the procedure well without any evidence of complication and transferred to PACU in good condition. FREDERICK/SIGIFREDO Voice ID: [id number] Report ID: [id number] RAPHAEL
== END | disposition home or self-care (01) ==
LOC: OR 09:33
PROVIDERS: ATTEND Surgery
PROC: 0YUA0JZ Supplement Bilateral Inguinal Region with Synthetic Substitute, Open Approach (ICD-10-PCS; principal; 2020-09-29 10:30)
DX: K40.00 Bilateral inguinal hernia, with obstruction, without gangrene, not specified as recurrent (principal); F17.210 Nicotine dependence, cigarettes, uncomplicated; K21.9 Gastro-esophageal reflux disease without esophagitis; F41.9 Anxiety disorder, unspecified; Z20.828 Contact with and (suspected) exposure to other viral communicable diseases
CPT/HCPCS: 88302; J0690; J1100; J1170; J2175; J2250; J2405; J2704; J3010; J7120; U0002